=== PATIENT | male | born 1955 | race Caucasian/White ===

== ENCOUNTER 2017-02-28 10:25 | Emergency (ER) | payer MEDICARE, OTHER ==
[2017-02-28] MEDS ORDERED: SODIUM CHLORIDE 0.9% 1,000 ML IV STA (11:19)
[2017-02-28] MEDS ORDERED: ONDANSETRON 4 MG/2 ML VIAL IVP STA (11:19)
[2017-02-28] MEDS ORDERED: HYDROmorphone 1 MG/ML 1 ML SYRINGE IVP STA (11:19)
[2017-02-28] MEDS ORDERED: RX INFO: IV CONTRAST WAS GIVEN 1 EACH MISC MISCELLANE PRN (11:28)
--- NOTE | 2017-02-28 11:29 | ED ---
General Adult HPI <Ortiz Jose - Last Filed: 02/28/17 13:40> - General Source: patient, RN notes reviewed Mode of arrival: ambulatory Limitations: no limitations <Charanjit Santos - Last Filed: 02/28/17 13:45> - General Chief complaint: Abdominal Pain Stated complaint: Abd.pain Time Seen by Provider: 02/28/17 11:07 - History of Present Illness Initial comments: Patient is a 61-year-old male who presents emergency room today with chief complaint of right-sided abdominal pain. Doesn't that started 4 days ago. Describes it as sharp pain located in the right lower quadrant. Denies any radiation. Does admit to some nausea. Does admit to some diarrhea off and on over the last few weeks. He denies any other complaints or associated symptoms. Patient denies any recent fever, chills, shortness of breath, chest pain, back pain, numbness or tingling, dysuria or hematuria, constipation, headaches or visual changes, or any other complaints. (Charanjit Santos) - Related Data Home Medications Medication Instructions Recorded Confirmed Aspirin EC [Ecotrin] 81 mg PO DAILY 04/19/15 02/28/17 Pravastatin Sodium [Pravachol] 20 mg PO HS 04/19/15 02/28/17 amLODIPine BESYLATE [Norvasc] 5 mg PO DAILY 04/19/15 02/28/17 Albuterol Inhaler [Ventolin Hfa 1 - 2 puff INHALATION RT-Q6H PRN 02/28/17 Inhaler] Calcium Carbonate/Vitamin D3 1 tab PO BID 02/28/17 02/28/17 [Calcium 500-Vit D3 200 Tablet] Citalopram Hydrobromide [CeleXA] 10 mg PO DAILY 02/28/17 02/28/17 Ensure 1 can PO TID-W/MEALS 02/28/17 02/28/17 Ferrous Gluconate 324 mg PO DAILY 02/28/17 02/28/17 Sildenafil Citrate [Viagra] 50 mg PO ONCE PRN 02/28/17 02/28/17 Tiotropium 18 Mcg/Puff [Spiriva] 1 cap INHALATION RT-DAILY 02/28/17 02/28/17 Topiramate [Topamax] 50 mg PO BID 01/02/18 01/02/18 traZODone HCL [Desyrel] 200 mg PO HS 02/28/17 02/28/17 Allergies Allergy/AdvReac Type Severity Reaction Status Date / Time No Known Allergies Allergy Verified 02/28/17 12:35 Review of Systems ROS Other: All systems not noted in ROS Statement are negative. <Ortiz Jose - Last Filed: 02/28/17 13:40> ROS Other: All systems not noted in ROS Statement are negative. <Charanjit Santos - Last Filed: 02/28/17 13:45> ROS Statement: Those systems with pertinent positive or pertinent negative responses have been documented in the HPI. Past Medical History Past Medical History: Hyperlipidemia, Hypertension History of Any Multi-Drug Resistant Organisms: None Reported Past Surgical History: No Surgical Hx Reported Past Psychological History: Anxiety Smoking Status: Current every day smoker Past Alcohol Use History: None Reported Past Drug Use History: None Reported <Charanjit Santos - Last Filed: 02/28/17 13:45> General Exam <Ortiz Jose - Last Filed: 02/28/17 13:40> Limitations: no limitations <Charanjit Santos - Last Filed: 02/28/17 13:45> - General Exam Comments Initial Comments: General: The patient is awake and alert, in no distress, and does not appear acutely ill. Eye: Pupils are equal, round and reactive to light, extra-ocular movements are intact. No nystagmus. There is normal conjunctiva bilaterally. No signs of icterus. Ears, nose, mouth and throat: There are moist mucous membranes and no oral lesions. Neck: The neck is supple, there is no tenderness or JVD. Cardiovascular: There is a regular rate and rhythm. No murmur, rub or gallop is appreciated. Respiratory: Lungs are clear to auscultation, respirations are non-labored, breath sounds are equal. No wheezes, stridor, rales, or rhonchi. Gastrointestinal: Normal bowel sounds. No rebound tenderness. Mild tenderness right lower quadrant. No CVA tenderness. Musculoskeletal: Normal ROM, no tenderness. Strength 5/5. Sensation intact. Pulses equal bilaterally 2+. Neurological: A&O x 3. CN II-XII intact, There are no obvious motor or sensory deficits. Coordination appears grossly intact. Speech is normal. Skin: Skin is warm and dry and no rashes or lesions are noted. Psychiatric: Cooperative, appropriate mood & affect, normal judgment. (Charanjit Santos) Course <Ortiz Jose - Last Filed: 02/28/17 13:40> <Charanjit Santos - Last Filed: 02/28/17 13:45> Vital Signs 02/28/17 10:54 Temperature 97 F L Pulse Rate 75 Respiratory 16 Rate Blood Pressure 137/79 O2 Sat by Pulse 100 Oximetry - Reevaluation(s) Reevaluation #1: 02/28/17 13:40 [facility] supervision did have a long discussion with the patient regarding the findings. Patient has had recent weight loss and decreased appetite. He does state that he had a CAT scan done at the [facility] versus show some type of involvement of his liver. The CAT scan today does show evidence of what appears be metastatic disease from an unknown etiology at this time. After long discussions the patient has decided that he will be discharged and follow- up tomorrow to [facility]. He was encouraged to do so. He was offered admission here but would prefer to take care of his affairs and go down to the CT himself. He will be given copies of his labs and CAT scans. (Ortiz Jose) Medical Decision Making - Lab Data Result diagrams: 02/28/17 11:30 02/28/17 11:30 <Ortiz Jose - Last Filed: 02/28/17 13:40> - Lab Data Result diagrams: 02/28/17 11:30 02/28/17 11:30 <Charanjit Santos - Last Filed: 02/28/17 13:45> - Lab Data Lab Results 02/28/17 02/28/17 02/28/17 Range/Units 11:30 11:30 11:30 WBC 8.3 (3.8-10.6) k/uL RBC 4.78 (4.30-5.90) m/uL Hgb 14.5 (13.0-17.5) gm/dL Hct 45.6 (39.0-53.0) % MCV 95.4 (80.0-100.0) fL MCH 30.2 (25.0-35.0) pg MCHC 31.7 (31.0-37.0) g/dL RDW 15.3 (11.5-15.5) % Plt Count 221 (150-450) k/uL Neutrophils % 78 % Lymphocytes % 12 % Monocytes % 7 % Eosinophils % 1 % Basophils % 1 % Neutrophils # 6.5 (1.3-7.7) k/uL Lymphocytes # 1.0 (1.0-4.8) k/uL Monocytes # 0.6 (0-1.0) k/uL Eosinophils # 0.1 (0-0.7) k/uL Basophils # 0.1 (0-0.2) k/uL PT (9.0-12.0) sec INR (<1.2) APTT (22.0-30.0) sec Sodium 138 (137-145) mmol/L Potassium 4.4 (3.5-5.1) mmol/L Chloride 106 (98-107) mmol/L Carbon Dioxide 21 L (22-30) mmol/L Anion Gap 11 mmol/L BUN 23 H (9-20) mg/dL Creatinine 0.60 L (0.66-1.25) mg/dL Est GFR (MDRD) Af Amer >60 (>60 ml/min/1.73 sqM) Est GFR (MDRD) Non-Af >60 (>60 ml/min/1.73 sqM) Glucose 102 H (74-99) mg/dL Plasma Lactic Acid Francisco 1.1 (0.7-2.0) mmol/L Calcium 9.4 (8.4-10.2) mg/dL Total Bilirubin 0.6 (0.2-1.3) mg/dL AST 114 H (17-59) U/L ALT 78 H (21-72) U/L Alkaline Phosphatase 797 H (38-126) U/L Total Protein 7.0 (6.3-8.2) g/dL Albumin 4.0 (3.5-5.0) g/dL Amylase 49 (30-110) U/L Lipase 101 (23-300) U/L Urine Color Urine Appearance (Clear) Urine pH (5.0-8.0) Ur Specific [place] (1.001-1.035) Urine Protein (Negative) Urine Glucose (UA) (Negative) Urine Ketones (Negative) Urine Blood (Negative) Urine Nitrite (Negative) Urine Bilirubin (Negative) Urine Urobilinogen (<2.0) mg/dL Ur Leukocyte Esterase (Negative) Amorphous Sediment (None) /hpf 02/28/17 02/28/17 Range/Units 11:30 11:30 WBC (3.8-10.6) k/uL RBC (4.30-5.90) m/uL Hgb (13.0-17.5) gm/dL Hct (39.0-53.0) % MCV (80.0-100.0) fL MCH (25.0-35.0) pg MCHC (31.0-37.0) g/dL RDW (11.5-15.5) % Plt Count (150-450) k/uL Neutrophils % % Lymphocytes % % Monocytes % % Eosinophils % % Basophils % % Neutrophils # (1.3-7.7) k/uL Lymphocytes # (1.0-4.8) k/uL Monocytes # (0-1.0) k/uL Eosinophils # (0-0.7) k/uL Basophils # (0-0.2) k/uL PT 10.0 (9.0-12.0) sec INR 1.0 (<1.2) APTT 24.5 (22.0-30.0) sec Sodium (137-145) mmol/L Potassium (3.5-5.1) mmol/L Chloride (98-107) mmol/L Carbon Dioxide (22-30) mmol/L Anion Gap mmol/L BUN (9-20) mg/dL Creatinine (0.66-1.25) mg/dL Est GFR (MDRD) Af Amer (>60 ml/min/1.73 sqM) Est GFR (MDRD) Non-Af (>60 ml/min/1.73 sqM) Glucose (74-99) mg/dL Plasma Lactic Acid Francisco (0.7-2.0) mmol/L Calcium (8.4-10.2) mg/dL Total Bilirubin (0.2-1.3) mg/dL AST (17-59) U/L ALT (21-72) U/L Alkaline Phosphatase (38-126) U/L Total Protein (6.3-8.2) g/dL Albumin (3.5-5.0) g/dL Amylase (30-110) U/L Lipase (23-300) U/L Urine Color Yellow Urine Appearance Cloudy (Clear) Urine pH 7.0 (5.0-8.0) Ur Specific [place] 1.014 (1.001-1.035) Urine Protein Negative (Negative) Urine Glucose (UA) Negative (Negative) Urine Ketones Negative (Negative) Urine Blood Negative (Negative) Urine Nitrite Negative (Negative) Urine Bilirubin Negative (Negative) Urine Urobilinogen <2.0 (<2.0) mg/dL Ur Leukocyte Esterase Negative (Negative) Amorphous Sediment Occasional H (None) /hpf Disposition <Ortiz Jose - Last Filed: 02/28/17 13:40> Time of Disposition: 13:44 <Charanjit Santos - Last Filed: 02/28/17 13:45> Clinical Impression: Liver mass Disposition: HOME SELF-CARE Condition: Undetermined Instructions: Abdominal Pain (ED) Additional Instructions: Please follow-up with [facility] as discussed soon as possible for further evaluation of possible metastatic disease to the liver. Please return to emergency room for new concerns. Referrals: Hansel Mario DO [Primary Care Provider] - 1-2 days
[2017-02-28 11:55] LABS: Basophils # (A) 0.1 k/uL (0-0.2); Basophils % (A) 1 %; Eosinophils # (A) 0.1 k/uL (0-0.7); Eosinophils % (A) 1 %; HCT 45.6 % (39.0-53.0); HGB 14.5 gm/dL (13.0-17.5); Lymphocytes % (A) 12 %; MCH 30.2 pg (25.0-35.0); MCHC 31.7 g/dL (31.0-37.0); MCV 95.4 fL (80.0-100.0); Mean Platelet Volume 9.7; Monocytes # (A) 0.6 k/uL (0-1.0); Monocytes % (A) 7 %; Neutrophils # (A) 6.5 k/uL (1.3-7.7); Neutrophils % (A) 78 %; Platelet Count 221 k/uL (150-450); RBC 4.78 m/uL (4.30-5.90); RDW 15.3 % (11.5-15.5); WBC 8.3 k/uL (3.8-10.6)
[2017-02-28 11:59] LABS: Partial Thromboplastin Time 24.5 sec (22.0-30.0)
[2017-02-28 12:02] LABS: ALT 78 U/L (21-72); AST 114 U/L (17-59); Alkaline Phosphatase 797 U/L (38-126); Amylase 49 U/L (30-110); Anion Gap 11 mmol/L; Blood Urea Nitrogen 23 mg/dL (9-20); Calcium 9.4 mg/dL (8.4-10.2); Carbon Dioxide 21 mmol/L (22-30); Chloride 106 mmol/L (98-107); Glucose 102 mg/dL (74-99); Lipase 101 U/L (23-300); Potassium 4.4 mmol/L (3.5-5.1); Sodium 138 mmol/L (137-145); Total Bilirubin 0.6 mg/dL (0.2-1.3)
[2017-02-28 12:27] LABS: Amorphous Sediment,Urine Occasional /hpf; Appearance,Urine Cloudy (Clear); Bilirubin,Urine Negative (Negative); Blood,Urine Negative (Negative); Color,Urine Yellow; Glucose,Urine (UA) Negative (Negative); Ketones,Urine Negative (Negative); Leukocyte Esterase,Urine Negative (Negative); Nitrite,Urine Negative (Negative); Protein,Urine Negative (Negative); Specific Gravity,Urine 1.014 (1.001-1.035); Urobilinogen,Urine <2.0 mg/dL (<2.0)
--- NOTE | 2017-02-28 13:15 | CT ---
EXAMINATION TYPE: CT abdomen pelvis w con DATE OF EXAM: 02/28/2017 COMPARISON: NONE HISTORY: Bilateral lower abdominal pain CT DLP: 813 mGycm CONTRAST: CT scan of the abdomen and pelvis is performed without Oral Contrast and with IV Contrast, patient in jected with 100 ml mL of Omnipaque 300. FINDINGS: LUNG BASES-: No visible nodule. No infiltrate. Basilar emphysematous changes seen. LIVER/GB: Innumerable hepatic lesions are noted with the largest identified near the dome posteriorly measuring 3.1 cm. All lobes and segments appear to be affected and the findings are believed to be c onsistent with metastatic disease. There is also associated hepatomegaly. The gallbladder is free of cholelithiasis. Mild biliary ductal prominence left hepatic lobe. PANCREAS: No inflammation. No distinct mass. SPLEEN: No splenic enlargement. No lesion seen. ADRENALS: No nodule. No thickening. KIDNEYS/BLADDER: No hydronephrosis. No nephrolithiasis. No disctinct renal mass. Urinary bladder g rossly unremarkable. BOWEL: Normal appendix. Normal bowel caliber. No inflammation. No obvious colonic lesion although t he colon is less than ideally distended at this time. GENITAL ORGANS: No gross abnormality. LYMPH NODES: No greater than 1cm abdominal or pelvic lymph nodes are appreciated. AORTA: Nonaneurysmal atheromatous change of the abdominal aorta. OSSEOUS STRUCTURES: No significant abnormality is seen. OTHER: Small amount of free fluid within the pelvis. IMPRESSION: 1. Findings compatible with metastatic disease to the liver with site of origin difficult to elucidat e on this study. As noted there is less than ideal distention of the colon. 2. Hepatomegaly. 3. Small amount of free fluid within the pelvis.
[2017-03-01 23:01] VITALS: BP 175/84; PULSE 57; RESP 15; TEMP 97.8
== END 2017-02-28 14:15 | disposition home or self-care (01) ==
LOC: EC 10:25
DX: R16.0 Hepatomegaly, not elsewhere classified (principal); E78.5 Hyperlipidemia, unspecified; I10 Essential (primary) hypertension; F41.9 Anxiety disorder, unspecified; F17.200 Nicotine dependence, unspecified, uncomplicated; Z79.82 Long term (current) use of aspirin; Z79.899 Other long term (current) drug therapy
CPT/HCPCS: 99284; 96374; 96375; 96361 ×2; 36415; 80053; 82150; 83605; 83690; 85025; 85610; 85730; 81001; 74177; J2405; J1170; Q9967

== ENCOUNTER 2017-03-08 16:15 | Inpatient (IN) | payer OTHER, MEDICARE ==
[2017-03-08] MEDS ORDERED: SODIUM CHLORIDE 0.9% 1,000 ML IV ONE (16:35)
[2017-03-08] MEDS ORDERED: HYDROmorphone 1 MG/ML 1 ML SYRINGE IVP STA ×2 (16:53→18:24)
[2017-03-08] MEDS ORDERED: ONDANSETRON 4 MG/2 ML VIAL IVP STA (16:53)
[2017-03-08 17:14] LABS: Basophils # (A) 0.1 k/uL (0-0.2); Basophils % (A) 0 %; Eosinophils % (A) 0 %; HCT 47.5 % (39.0-53.0); HGB 15.1 gm/dL (13.0-17.5); Lymphocytes # (A) 0.8 k/uL (1.0-4.8); Lymphocytes % (A) 6 %; MCH 29.6 pg (25.0-35.0); MCHC 31.8 g/dL (31.0-37.0); MCV 93.1 fL (80.0-100.0); Mean Platelet Volume 9.2; Monocytes # (A) 0.6 k/uL (0-1.0); Monocytes % (A) 5 %; Neutrophils % (A) 88 %; Platelet Count 259 k/uL (150-450); RBC 5.11 m/uL (4.30-5.90); RDW 14.9 % (11.5-15.5); WBC 12.6 k/uL (3.8-10.6)
[2017-03-08 17:28] LABS: INR 1.1 (<1.2); Prothrombin Time 10.4 sec (9.0-12.0)
[2017-03-08 17:29] LABS: ALT 87 U/L (21-72); AST 148 U/L (17-59); Albumin 4.5 g/dL (3.5-5.0); Alkaline Phosphatase 836 U/L (38-126); Amylase 44 U/L (30-110); Anion Gap 12 mmol/L; Blood Urea Nitrogen 20 mg/dL (9-20); Calcium 10.2 mg/dL (8.4-10.2); Carbon Dioxide 24 mmol/L (22-30); Chloride 99 mmol/L (98-107); Glucose 121 mg/dL (74-99); Lipase 48 U/L (23-300); Potassium 4.6 mmol/L (3.5-5.1); Sodium 135 mmol/L (137-145); Total Bilirubin 1.4 mg/dL (0.2-1.3); Total Protein 7.8 g/dL (6.3-8.2)
--- NOTE | 2017-03-08 17:41 | XR ---
EXAMINATION TYPE: XR KUB DATE OF EXAM: 03/08/2017 COMPARISON: NONE HISTORY: Lower abdominal pain for a month and half. TECHNIQUE: 2 upright views FINDINGS: The visualized lung bases and pleural spaces and cardiac silhouette are unremarkable. There is no pneumoperitoneum and no evident pneumatosis. The stomach is enlarged and fluid-filled. The stomach takes up nearly the entirety of the left upper quadrant. Taking up nearly the entire right upper quadrant is the liver, with evident hepatomegaly. The skeletal structures and soft tissues are unremarkable. IMPRESSION: 1. PROMINENT GASTRIC DISTENTION. 2. HEPATOMEGALY.
--- NOTE | 2017-03-08 18:17 | ED ---
Abdominal Pain HPI - General Chief Complaint: Abdominal Pain Stated Complaint: abdominal pain Time Seen by Provider: 03/08/17 16:28 Source: patient, RN notes reviewed Mode of arrival: wheelchair Limitations: no limitations - History of Present Illness Initial Comments: This a 61-year-old male presents emergency Department chief complaint of right upper quadrant abdominal pain. Patient states he seen here 5 days ago and was told that he had liver mass possible cancer. Patient states he also had a study done at the [facility] that showed some things. Patient was offered admission though declined stated he wanted take care of some things outpatient follow-up with the [facility]. Patient states he went to his [facility] and [facility] today but had lab work drawn no other imaging or follow-up. He states that he is scheduled for biopsy by ultrasound though several weeks ago. He states today the pain worse and he cannot tolerate the pain anymore. Patient denies any fevers or chills. He does admit to some nausea no vomiting no diarrhea constipation. - Related Data Home Medications Medication Instructions Recorded Confirmed Aspirin EC [Ecotrin] 81 mg PO DAILY 04/19/15 03/08/17 Pravastatin Sodium [Pravachol] 10 mg PO HS 04/19/15 03/08/17 amLODIPine BESYLATE [Norvasc] 5 mg PO DAILY 04/19/15 03/08/17 Calcium Carbonate/Vitamin D3 1 tab PO BID 02/28/17 03/08/17 [Calcium 500-Vit D3 200 Tablet] Ferrous Gluconate 324 mg PO DAILY 02/28/17 03/08/17 Tiotropium 18 Mcg/Puff [Spiriva] 1 cap INHALATION RT-DAILY 02/28/17 03/08/17 Topiramate [Topamax] 50 mg PO BID 02/28/17 03/08/17 traZODone HCL [Desyrel] 200 mg PO HS 02/28/17 03/08/17 HYDROcodone/APAP 7.5-325MG [[place] 1 tab PO QID PRN 03/08/17 03/08/17 7.5-325] Allergies Allergy/AdvReac Type Severity Reaction Status Date / Time No Known Allergies Allergy Verified 03/08/17 17:12 Review of Systems ROS Statement: Those systems with pertinent positive or pertinent negative responses have been documented in the HPI. ROS Other: All systems not noted in ROS Statement are negative. Past Medical History Past Medical History: Hyperlipidemia, Hypertension History of Any Multi-Drug Resistant Organisms: None Reported Past Surgical History: No Surgical Hx Reported Past Psychological History: Anxiety Smoking Status: Current every day smoker Past Alcohol Use History: None Reported Past Drug Use History: None Reported General Exam Limitations: no limitations General appearance: alert, in no apparent distress Head exam: Present: atraumatic, normocephalic, normal inspection Neck exam: Present: normal inspection, full ROM. Absent: tenderness, meningismus, lymphadenopathy Respiratory exam: Present: normal lung sounds bilaterally. Absent: respiratory distress, wheezes, rales, rhonchi, stridor Cardiovascular Exam: Present: regular rate, normal rhythm, normal heart sounds. Absent: systolic murmur, diastolic murmur, rubs, gallop, clicks GI/Abdominal exam: Present: soft, tenderness (Moderate to severe right upper quadrant tenderness), normal bowel sounds. Absent: distended, guarding, rebound , rigid Back exam: Absent: CVA tenderness (R), CVA tenderness (L) Skin exam: Present: warm, dry, intact, normal color. Absent: rash Course Vital Signs 03/08/17 03/08/17 16:25 18:27 Temperature 98.4 F Pulse Rate 90 71 Respiratory 20 20 Rate Blood Pressure 168/88 163/80 O2 Sat by Pulse 98 99 Oximetry Medical Decision Making - Medical Decision Making 61-year-old male presented to er for abdominal pain. Patient has what appears to be metastatic cancer to liver. Patient's having increasing pain and increasing transaminitis. Patient be admitted for further evaluation and pain control. - Lab Data Result diagrams: 03/08/17 17:05 03/08/17 17:05 Lab Results 03/08/17 03/08/17 03/08/17 Range/Units 17:05 17:05 17:05 WBC 12.6 H (3.8-10.6) k/uL RBC 5.11 (4.30-5.90) m/uL Hgb 15.1 (13.0-17.5) gm/dL Hct 47.5 (39.0-53.0) % MCV 93.1 (80.0-100.0) fL MCH 29.6 (25.0-35.0) pg MCHC 31.8 (31.0-37.0) g/dL RDW 14.9 (11.5-15.5) % Plt Count 259 (150-450) k/uL Neutrophils % 88 % Lymphocytes % 6 % Monocytes % 5 % Eosinophils % 0 % Basophils % 0 % Neutrophils # 11.0 H (1.3-7.7) k/uL Lymphocytes # 0.8 L (1.0-4.8) k/uL Monocytes # 0.6 (0-1.0) k/uL Eosinophils # 0.0 (0-0.7) k/uL Basophils # 0.1 (0-0.2) k/uL PT 10.4 (9.0-12.0) sec INR 1.1 (<1.2) APTT 23.0 (22.0-30.0) sec Sodium 135 L (137-145) mmol/L Potassium 4.6 (3.5-5.1) mmol/L Chloride 99 (98-107) mmol/L Carbon Dioxide 24 (22-30) mmol/L Anion Gap 12 mmol/L BUN 20 (9-20) mg/dL Creatinine 0.70 (0.66-1.25) mg/dL Est GFR (MDRD) Af Amer >60 (>60 ml/min/1.73 sqM) Est GFR (MDRD) Non-Af >60 (>60 ml/min/1.73 sqM) Glucose 121 H (74-99) mg/dL Calcium 10.2 (8.4-10.2) mg/dL Total Bilirubin 1.4 H (0.2-1.3) mg/dL AST 148 H (17-59) U/L ALT 87 H (21-72) U/L Alkaline Phosphatase 836 H (38-126) U/L Total Protein 7.8 (6.3-8.2) g/dL Albumin 4.5 (3.5-5.0) g/dL Amylase 44 (30-110) U/L Lipase 48 (23-300) U/L Disposition Clinical Impression: Transaminitis, Intractable abdominal pain, Liver mass Disposition: ADMITTED IP TO THIS [facility] Condition: Fair Referrals: Hansel Mario DO [Primary Care Provider] - 1-2 days
--- NOTE | 2017-03-08 18:36 | US ---
EXAMINATION TYPE: US abdomen limited DATE OF EXAM: 03/08/2017 COMPARISON: CT CLINICAL HISTORY: increased pain. EXAM MEASUREMENTS: Liver Length: 18.4 cm Gallbladder Wall: 0.4 cm CBD: 0.1 cm Right Kidney: 11.4 x 4.3 x 4.8 cm Patient in a lot of pain, had to sit straight up during test, unable to hold his breath. Pancreas: partially obscured by bowel gas, portions visualized wnl Liver: appears grossly heterogeneous with many probable masses, enlarged Gallbladder: The gallbladder is nondistended with biliary sludge seen within. Its wall appears homog eneously slightly-thickened, but this is likely due to underdistention. There was no evidence for son ographic Castañeda's sign: CBD: wnl Right Kidney: No hydronephrosis. The upper and lower poles are not entirely well seen due to overlyin g bowel gas. IMPRESSION: INNUMERABLE LIVER LESIONS WITH MILD HEPATOMEGALY BUT WITHOUT BILIARY OBSTRUCTION. NEGATIVE FOR CHOLECYSTITIS OR RIGHT-SIDED HYDRONEPHROSIS.
[2017-03-08] MEDS ORDERED: LORazepam 2 MG/ML INJ IV PRN (19:05)
[2017-03-08] MEDS ORDERED: HYDROmorphone 1 MG/ML 1 ML SYRINGE IVP PRN (19:05)
[2017-03-08] MEDS ORDERED: ONDANSETRON 4 MG/2 ML VIAL IVP PRN (19:05)
[2017-03-08] MEDS ORDERED: NALOXONE 0.4 MG/ML 1 ML VIAL IV PRN (19:05)
[2017-03-08 20:24] LABS: Appearance,Urine Clear (Clear); Bilirubin,Urine Negative (Negative); Blood,Urine Negative (Negative); Color,Urine Yellow; Glucose,Urine (UA) Negative (Negative); Hyaline Casts,Urine 8 /lpf (0-2); Ketones,Urine 1+ (Negative); Leukocyte Esterase,Urine Negative (Negative); Mucus,Urine Rare /hpf; Nitrite,Urine Negative (Negative); PH, Urine 5.5 (5.0-8.0); Protein,Urine 1+ (Negative); RBC,Urine 1 /hpf (0-5); Specific Gravity,Urine 1.019 (1.001-1.035); WBC,Urine 4 /hpf (0-5)
[2017-03-08] MEDS: HYDROmorphone 2 MG/ML 1 ML SYRINGE IVP PRN (22:31)
[2017-03-09] MEDS: TOPIRAMATE 25 MG TAB PO SCH ×3 (00:25→21:17)
[2017-03-09] MEDS: traZODone HCL 100 MG TAB PO SCH ×2 (00:25→21:17)
[2017-03-09] MEDS: SODIUM CHLORIDE 0.9% 1,000 ML IV SCH ×3 (00:25→21:16)
[2017-03-09] MEDS: HYDROmorphone 2 MG/ML 1 ML SYRINGE IVP PRN ×3 (01:23→07:37)
[2017-03-09 08:31] LABS: HCT 41.8 % (39.0-53.0); HGB 13.8 gm/dL (13.0-17.5); MCH 30.4 pg (25.0-35.0); Mean Platelet Volume 9.4; Platelet Count 221 k/uL (150-450); RBC 4.54 m/uL (4.30-5.90); RDW 14.1 % (11.5-15.5); WBC 4.4 k/uL (3.8-10.6)
[2017-03-09 08:42] LABS: ALT 69 U/L (21-72); AST 110 U/L (17-59); Albumin 3.8 g/dL (3.5-5.0); Alkaline Phosphatase 710 U/L (38-126); Anion Gap 10 mmol/L; Blood Urea Nitrogen 21 mg/dL (9-20); Calcium 9.3 mg/dL (8.4-10.2); Carbon Dioxide 23 mmol/L (22-30); Chloride 104 mmol/L (98-107); Glucose 115 mg/dL (74-99); Magnesium 1.9 mg/dL (1.6-2.3); Potassium 4.5 mmol/L (3.5-5.1); Sodium 137 mmol/L (137-145); Total Bilirubin 1.2 mg/dL (0.2-1.3); Total Protein 6.7 g/dL (6.3-8.2)
[2017-03-09 10:49] LABS: Lymphocytes # (M) 0.57 k/uL (1.0-4.8); Monocytes # (M) 0.53 k/uL (0-1.0); Neutrophils % (M) 75 %; Nucleated Red Blood Cells 0 /100 WBC (0-0); Total Cells Counted 100
--- NOTE | 2017-03-09 11:32 | P.CONS ---
History of Present Illness - Reason for Consult Consult date: 03/09/17 liver mass Requesting physician: Yg Stark - History of Present Illness 61-year-old gentleman with a history of long-standing nicotine cigarette dependency, remote EtOH consumption quit 2005, marijuana, COPD, hyperlipidemia, hypertension, anxiety presents with acute abdominal pain. Patient was recently evaluated at the [facility] in [facility] a few months ago in regards to unexplained weight loss and changes in appetite. He reports undergoing an abdominal CAT scan imaging which resulted in multiple liver lesions. Not sure if CT of the chest was performed but he has a history of pulmonary nodules that he says have been unchanged over the past few years. Liver biopsy was advised and is scheduled 2 weeks from now at the ID. No history of hepatitis or intravenous drug abuse. Primary source is unknown at this time. Patient has had progressive abdominal pain mostly in the upper abdomen with decreased appetite. No fevers chills hematemesis hematochezia melena. Colonoscopy 5-6 months ago within normal limits may be a few polyps removed. No history of EGD. Ultrasound abdomen innumerable liver lesions with mild hepatomegaly without biliary obstruction. CBD 0.1 cm. Liver length 18.4 cm. Biliary sludge seen. Admission white count 4.4-12.6. Hemoglobin 13.8-15.1. Platelet 221. INR 1.1. Total bilirubin 1.2-1.4. AST 110-148. ALT 69-87. Alkaline phosphatase 710- 836. Lipase 48. Review of Systems Constitutional: Denies fever, chills, sweats, weight gain, or loss. HEENT: Negative for migraines, blurred vision or loss, earaches, drainage, tinnitus, oral mucosal lesions, dysphagia, or odynophagia. Cardiac: Negative for chest pain, arrhythmias, or palpitation. Respiratory: COPD. Nicotine cigarette dependency. Negative for shortness of breath, hemoptysis, cough, or sputum production. Gastrointestinal: See HPI for pertinent findings. Genitourinary: Negative for hematuria, urgency, frequency, polyuria, dysuria, or penile discharge. Musculoskeletal: Negative for muscle aches, swelling, arthritis, and arthralgias. Neurologic: Negative for stroke or TIA. Endocrine: Negative for thyroid problems. Skin: Negative for rash or itching. Psychiatric: Anxiety. Past Medical History Past Medical History: COPD, Hyperlipidemia, Hypertension, Osteoarthritis (OA) Additional Past Medical History / Comment(s): past abby wrist fx(no sx), past migraines. "fainting spells all my life (unk cause)until they found right meds for me and i have'nt had any in 5 years"," ruptured bellybutton as infant-has sx to repair" History of Any Multi-Drug Resistant Organisms: None Reported Past Surgical History: No Surgical Hx Reported Additional Past Surgical History / Comment(s): sx for "ruptured bellybutton" as . colonoscopy w/ polypectomy-benign Past Anesthesia/Blood Transfusion Reactions: No Reported Reaction Smoking Status: Current every day smoker - Past Family History Father Family Medical History: COPD Additional Family Medical History / Comment(s): Mother History Unknown: Yes Family Medical History: No Reported History Additional Family Medical History / Comment(s): still alive-healthy Medications and Allergies Home Medications Medication Instructions Recorded Confirmed Type Aspirin EC [Ecotrin] 81 mg PO DAILY 04/19/15 03/08/17 History Pravastatin Sodium [Pravachol] 10 mg PO HS 04/19/15 03/08/17 History amLODIPine BESYLATE [Norvasc] 5 mg PO DAILY 04/19/15 03/08/17 History Calcium Carbonate/Vitamin D3 1 tab PO BID 02/28/17 03/08/17 History [Calcium 500-Vit D3 200 Tablet] Ferrous Gluconate 324 mg PO DAILY 02/28/17 03/08/17 History Tiotropium 18 Mcg/Puff [Spiriva] 1 cap INHALATION RT-DAILY 02/28/17 03/08/17 History Topiramate [Topamax] 50 mg PO BID 02/28/17 03/08/17 History traZODone HCL [Desyrel] 200 mg PO HS 02/28/17 03/08/17 History HYDROcodone/APAP 7.5-325MG [[place] 1 tab PO QID PRN 03/08/17 03/08/17 History 7.5-325] Allergies Allergy/AdvReac Type Severity Reaction Status Date / Time No Known Allergies Allergy Verified 03/08/17 17:12 Physical Exam Vitals: Vital Signs Temp Pulse Pulse Resp BP BP Pulse Ox 03/09/17 07:00 98.3 F 75 18 183/92 97 03/08/17 21:12 97.8 F 79 15 149/84 94 L 03/08/17 20:25 98.0 F 68 18 154/89 98 03/08/17 19:54 86 18 132/89 98 03/08/17 18:27 71 20 163/80 99 03/08/17 16:25 98.4 F 90 20 168/88 98 Intake and Output 03/08/17 03/09/17 03/09/17 22:59 06:59 14:59 Intake Total 500 Balance 500 Intake: IV 500 Sodium Chloride 0.9% 1, 500 000 ml @ 100 mls/hr IV . Q10H [facility] Rx#:[id number] Other: Voiding Method Toilet # Voids 1 1 Weight 48.534 kg General appearance: The patient is alert, oriented, in no acute distress. Thin appearance. HET: Head is normocephalic and atraumatic. Pupils are equal and reactive. Oropharynx is clear without lesions. Neck: Supple without lymphadenopathy. Trachea midline. Heart: S1 S2. Regular rate and rhythm. Lungs: No crackles or wheezes are heard. Abdomen: Soft, diffuse mild abdominal pain mostly in the upper abdomen, nondistended with bowel sounds. No peritoneal signs. No palpable organomegaly or masses. Extremities: Normal skin color and turgor. No cyanosis, rash, ulceration, clubbing, or edema. Radial and pedal pulses are 2/4 bilaterally. Neurological: No focal deficits. Strength and sensation are grossly intact. Results CBC & Chem 7: 03/09/17 07:25 03/09/17 07:25 Labs: Abnormal Lab Results - Last 24 Hours (Table) 03/08/17 03/08/17 03/08/17 Range/Units 17:05 17:05 20:16 WBC 12.6 H (3.8-10.6) k/uL Neutrophils # 11.0 H (1.3-7.7) k/uL Lymphocytes # 0.8 L (1.0-4.8) k/uL Lymphocytes # (Manual) (1.0-4.8) k/uL Sodium 135 L (137-145) mmol/L BUN (9-20) mg/dL Glucose 121 H (74-99) mg/dL Total Bilirubin 1.4 H (0.2-1.3) mg/dL AST 148 H (17-59) U/L ALT 87 H (21-72) U/L Alkaline Phosphatase 836 H (38-126) U/L Urine Protein 1+ H (Negative) Urine Ketones 1+ H (Negative) Hyaline Casts 8 H (0-2) /lpf Urine Mucus Rare H (None) /hpf 03/09/17 03/09/17 Range/Units 07:25 07:25 WBC (3.8-10.6) k/uL Neutrophils # (1.3-7.7) k/uL Lymphocytes # (1.0-4.8) k/uL Lymphocytes # (Manual) 0.57 L (1.0-4.8) k/uL Sodium (137-145) mmol/L BUN 21 H (9-20) mg/dL Glucose 115 H (74-99) mg/dL Total Bilirubin (0.2-1.3) mg/dL AST 110 H (17-59) U/L ALT (21-72) U/L Alkaline Phosphatase 710 H (38-126) U/L Urine Protein (Negative) Urine Ketones (Negative) Hyaline Casts (0-2) /lpf Urine Mucus (None) /hpf US - abdomen: report reviewed (Dr. Nelson) Assessment and Plan (1) Liver mass Narrative/Plan: Presumed malignancy until proven otherwise primary unknown. Current Visit: Yes Status: Acute Code(s): R16.0 - HEPATOMEGALY, NOT ELSEWHERE CLASSIFIED SNOMED Code(s): 035824139 (2) Intractable abdominal pain Current Visit: Yes Status: Acute Code(s): R10.9 - UNSPECIFIED ABDOMINAL PAIN SNOMED Code(s): 76167244 (3) Transaminitis Current Visit: Yes Status: Acute Code(s): R74.0 - NONSPEC ELEV OF LEVELS OF TRANSAMNS & LACTIC ACID DEHYDRGNSE SNOMED Code(s): 098440397 Plan: 1. Case was discussed with oncologist Dr. Lizama we'll proceed with CT imaging of the chest. 2. AFP/CEA marker. Hepatitis panel. 3. Light diet as tolerated. Pain management. 4. Patient received baby aspirin within the past 48 hours therefore ultrasound- guided biopsy of liver lesion cannot be performed. Interventional radiology protocol requires no aspirin 7 days prior to liver biopsy. [facility]. Thank you for this kind referral and the opportunity to participate in the care of your patient. This consultation was discussed with Dr. Nelson. The impression and plan of care have been directed as dictated.
[2017-03-09 11:57] VITALS: BMI 16.2
[2017-03-09] MEDS ORDERED: POLYETHYLENE GLYCOL 3350 17 GM POWD.PACK PO PRN (12:13)
[2017-03-09] MEDS ORDERED: IPRATROPIUM-ALBUTEROL 3 ML NEB INHALATION PRN (12:24)
--- NOTE | 2017-03-09 12:24 | P.HPIM ---
History of Present Illness 61-year-old gentleman with a history of long-standing nicotine cigarette dependency, remote EtOH consumption quit 2005, marijuana, COPD, hyperlipidemia, hypertension, anxiety presents with acute abdominal pain diffuse 7 x 10 presently. Patient was recently evaluated at the [facility] in [facility] a few months ago in regards to unexplained weight loss and changes in appetite, patient was diagnosed with hepatocellular carcinoma in [facility] patient comes in here because of the severe pain September abdomen did show multiple metastatic lesions. He reports undergoing an abdominal CAT scan imaging which resulted in multiple liver lesions. Patient is mainly admitted for pain management patient pain remains severe 7 x 10 in spite of Dilaudid patient will be started on fentanyl patch and GI prophylaxis along with ketorolac to control his pain if pain is better controlled patient probably can be discharged tomorrow although maybe he may need to go to subacute intimidation patient is quite weak will also obtain PT and OT consultation. Patient had mild transaminitis which resolved at this point of time and gastroenterology evaluated the patient Colonoscopy 5-6 months ago within normal limits may be a few polyps removed. No history of EGD. Review of Systems REVIEW OF SYSTEMS: CONSTITUTIONAL: No fever, no malaise, no fatigue. HEENT: No recent visual problems or hearing problems. Denied any sore throat. CARDIOVASCULAR: No chest pain, orthopnea, PND, no palpitations, no syncope. PULMONARY: No shortness of breath, no cough, no hemoptysis. GASTROINTESTINAL: As mentioned in HPI NEUROLOGICAL: No headaches, no weakness, no numbness. HEMATOLOGICAL: Denies any bleeding or petechiae. GENITOURINARY: Denies any burning micturition, frequency, or urgency. MUSCULOSKELETAL/RHEUMATOLOGICAL: Denies any joint pain, swelling, or any muscle pain. ENDOCRINE: Denies any polyuria or polydipsia. The rest of the 14-point review of systems is negative. Past Medical History Past Medical History: COPD, Hyperlipidemia, Hypertension, Osteoarthritis (OA) Additional Past Medical History / Comment(s): past abby wrist fx(no sx), past migraines. "fainting spells all my life (unk cause)until they found right meds for me and i have'nt had any in 5 years"," ruptured bellybutton as infant-has sx to repair" History of Any Multi-Drug Resistant Organisms: None Reported Past Surgical History: No Surgical Hx Reported Additional Past Surgical History / Comment(s): sx for "ruptured bellybutton" as . colonoscopy w/ polypectomy-benign Past Anesthesia/Blood Transfusion Reactions: No Reported Reaction Smoking Status: Current every day smoker - Past Family History Father Family Medical History: COPD Additional Family Medical History / Comment(s): Mother History Unknown: Yes Family Medical History: No Reported History Additional Family Medical History / Comment(s): still alive-healthy Medications and Allergies Home Medications Medication Instructions Recorded Confirmed Type Aspirin EC [Ecotrin] 81 mg PO DAILY 04/19/15 03/08/17 History Pravastatin Sodium [Pravachol] 10 mg PO HS 04/19/15 03/08/17 History amLODIPine BESYLATE [Norvasc] 5 mg PO DAILY 04/19/15 03/08/17 History Calcium Carbonate/Vitamin D3 1 tab PO BID 02/28/17 03/08/17 History [Calcium 500-Vit D3 200 Tablet] Ferrous Gluconate 324 mg PO DAILY 02/28/17 03/08/17 History Tiotropium 18 Mcg/Puff [Spiriva] 1 cap INHALATION RT-DAILY 02/28/17 03/08/17 History Topiramate [Topamax] 50 mg PO BID 02/28/17 03/08/17 History traZODone HCL [Desyrel] 200 mg PO HS 02/28/17 03/08/17 History HYDROcodone/APAP 7.5-325MG [[place] 1 tab PO QID PRN 03/08/17 03/08/17 History 7.5-325] Allergies Allergy/AdvReac Type Severity Reaction Status Date / Time No Known Allergies Allergy Verified 03/08/17 17:12 Physical Exam Vitals: Vital Signs Temp Pulse Pulse Resp BP BP Pulse Ox 03/09/17 07:00 98.3 F 75 18 183/92 97 03/08/17 21:12 97.8 F 79 15 149/84 94 L 03/08/17 20:25 98.0 F 68 18 154/89 98 03/08/17 19:54 86 18 132/89 98 03/08/17 18:27 71 20 163/80 99 03/08/17 16:25 98.4 F 90 20 168/88 98 Intake and Output 03/08/17 03/09/17 03/09/17 22:59 06:59 14:59 Intake Total 500 Balance 500 Intake: IV 500 Sodium Chloride 0.9% 1, 500 000 ml @ 100 mls/hr IV . Q10H [facility] Rx#:[id number] Other: Voiding Method Toilet # Voids 1 1 Weight 48.534 kg 48.534 kg Patient Weight 03/10/17 06:59 Weight 48.534 kg PHYSICAL EXAMINATION: GENERAL: The patient is alert and oriented x3, not in any acute distress. Well developed, well nourished. HEENT: Pupils are round and equally reacting to light. EOMI. No scleral icterus. No conjunctival pallor. Normocephalic, atraumatic. No pharyngeal erythema. No thyromegaly. CARDIOVASCULAR: S1 and S2 present. No murmurs, rubs, or gallops. PULMONARY: Chest is clear to auscultation, no wheezing or crackles. ABDOMEN: Nondistended mild diffuse tenderness was appreciated no rebound or rigidity MUSCULOSKELETAL: No joint swelling or deformity. EXTREMITIES: No cyanosis, clubbing, or pedal edema. NEUROLOGICAL: Gross neurological examination did not reveal any focal deficits. SKIN: No rashes. Results CBC & Chem 7: 03/09/17 07:25 03/09/17 07:25 Labs: Abnormal Lab Results - Last 24 Hours (Table) 03/08/17 03/08/17 03/08/17 Range/Units 17:05 17:05 20:16 WBC 12.6 H (3.8-10.6) k/uL Neutrophils # 11.0 H (1.3-7.7) k/uL Lymphocytes # 0.8 L (1.0-4.8) k/uL Lymphocytes # (Manual) (1.0-4.8) k/uL Sodium 135 L (137-145) mmol/L BUN (9-20) mg/dL Glucose 121 H (74-99) mg/dL Total Bilirubin 1.4 H (0.2-1.3) mg/dL AST 148 H (17-59) U/L ALT 87 H (21-72) U/L Alkaline Phosphatase 836 H (38-126) U/L Urine Protein 1+ H (Negative) Urine Ketones 1+ H (Negative) Hyaline Casts 8 H (0-2) /lpf Urine Mucus Rare H (None) /hpf 03/09/17 03/09/17 Range/Units 07:25 07:25 WBC (3.8-10.6) k/uL Neutrophils # (1.3-7.7) k/uL Lymphocytes # (1.0-4.8) k/uL Lymphocytes # (Manual) 0.57 L (1.0-4.8) k/uL Sodium (137-145) mmol/L BUN 21 H (9-20) mg/dL Glucose 115 H (74-99) mg/dL Total Bilirubin (0.2-1.3) mg/dL AST 110 H (17-59) U/L ALT (21-72) U/L Alkaline Phosphatase 710 H (38-126) U/L Urine Protein (Negative) Urine Ketones (Negative) Hyaline Casts (0-2) /lpf Urine Mucus (None) /hpf Thrombosis Risk Factor Assmnt - Choose All That Apply Any of the Below Risk Factors Present?: Yes Each Factor Represents 1 point: Abnormal pulmonary function (COPD), Age 41-60 years Other Risk Factors: No Other congenital or acquired thrombophilia - If yes, enter type in comment: No Thrombosis Risk Factor Assessment Total Risk Factor Score: 2 Thrombosis Risk Factor Assessment Level: Low Risk Assessment and Plan Plan: - severe abdominal pain: Secondary to metastatic liver cancer further workup as mentioned above Pain management as mentioned above will continue with IV pain medications and wean off as tolerated GI prophylaxis and the bowel regimen for opiate rate medications. -Mild transaminitis: Hepatitis panel which resolved at this point of time will repeat CMP tomorrow again this mild transaminases prior probably secondary to metastatic lesions all over the abdomen. -COPD without any acute exacerbation -Cancer cachexia mild protein calorie malnutrition secondary to that Hypertension uncontrolled blood pressure secondary to pain patient will be resumed on home regimen of antidepressant medication pain management as mentioned above.
[2017-03-09] MEDS: KETOROLAC 30 MG/ML 1 ML VIAL IVP PRN ×2 (13:20→21:17)
[2017-03-09 15:21] LABS: Alpha Fetoprotein, Tumor Mkr 3.2 ng/mL (0.0-7.9)
[2017-03-09] MEDS: HEPARIN SODIUM,PORCINE 5,000 UNIT/ML 1 ML VIAL SQ SCH (17:13)
[2017-03-09] MEDS ORDERED: MORPHINE SULFATE 5 MG/ML SYRINGE IVP PRN (17:36)
--- NOTE | 2017-03-09 17:36 | P.CONS ---
History of Present Illness - Reason for Consult Consult date: 03/09/17 metastatic liver lesions, intractable pain - History of Present Illness the patient is a 61-year-old white male, who had presented to the [facility] in late 2017, with complains of abdominal pain more prominent on the right side. This had started about 3-4 months prior and had been progressive slowly. There was associated nausea, as well as decreased appetite and persistent weight loss. He had imaging studies done in the ER on 02/28/17, which showed lesions in the liver suspicious for metastasis. He was supposed to have a liver biopsy on 03/22/17. He came into the hospital, because of increasing pain which was not tolerable for him. He was therefore admitted for further management. He had abdominal imaging, including abdominal x-rays and US of the abdomen . These again showed multiple liver lesions highly suggestive of metastasis with no evidence of free air, cholecystitis or hydronephrosis. The patient denied any prior history of malignancy. He does have a history of smoking and states that CT scan done a few years ago in the mediastinum had shown small lung nodules which are stable from before. He has had a colonoscopy within the last few months that was negative. consult was therefore placed for further evaluation and recommendations. Review of Systems Constitutional: Reports chronic pain, Reports fatigue, Reports poor appetite, Reports weight loss Eyes: denies blurred vision, denies pain Ears: deny: decreased hearing, ear discharge, earache, tinnitus Ears, nose, mouth and throat: Denies headache, Denies sore throat Cardiovascular: Reports decreased exercise tolerance Respiratory: Denies cough Gastrointestinal: Reports abdominal pain, Reports nausea Genitourinary: Reports as per HPI (no specific complaints) Musculoskeletal: Denies myalgias Integumentary: Denies pruritus, Denies rash Neurological: Reports weakness, Denies numbness Psychiatric: Denies anxiety, Denies depression Endocrine: Reports fatigue, Reports weight change Hematologic/Lymphatic: Reports as per HPI Past Medical History Past Medical History: COPD, Hyperlipidemia, Hypertension, Osteoarthritis (OA) Additional Past Medical History / Comment(s): past abby wrist fx(no sx), past migraines. "fainting spells all my life (unk cause)until they found right meds for me and i have'nt had any in 5 years"," ruptured bellybutton as -has sx to repair" History of Any Multi-Drug Resistant Organisms: None Reported Past Surgical History: No Surgical Hx Reported Additional Past Surgical History / Comment(s): sx for "ruptured bellybutton" as infant. colonoscopy w/ polypectomy-benign Past Anesthesia/Blood Transfusion Reactions: No Reported Reaction Smoking Status: Current every day smoker - Past Family History Father Family Medical History: COPD Additional Family Medical History / Comment(s): Mother History Unknown: Yes Family Medical History: No Reported History Additional Family Medical History / Comment(s): still alive-healthy Medications and Allergies Home Medications Medication Instructions Recorded Confirmed Type Aspirin EC [Ecotrin] 81 mg PO DAILY 04/19/15 03/08/17 History Pravastatin Sodium [Pravachol] 10 mg PO HS 04/19/15 03/08/17 History amLODIPine BESYLATE [Norvasc] 5 mg PO DAILY 04/19/15 03/08/17 History Calcium Carbonate/Vitamin D3 1 tab PO BID 02/28/17 03/08/17 History [Calcium 500-Vit D3 200 Tablet] Ferrous Gluconate 324 mg PO DAILY 02/28/17 03/08/17 History Tiotropium 18 Mcg/Puff [Spiriva] 1 cap INHALATION RT-DAILY 02/28/17 03/08/17 History Topiramate [Topamax] 50 mg PO BID 02/28/17 03/08/17 History traZODone HCL [Desyrel] 200 mg PO HS 02/28/17 03/08/17 History HYDROcodone/APAP 7.5-325MG [[place] 1 tab PO QID PRN 03/08/17 03/08/17 History 7.5-325] Allergies Allergy/AdvReac Type Severity Reaction Status Date / Time No Known Allergies Allergy Verified 03/08/17 17:12 Physical Exam Vitals: Vital Signs Temp Pulse Pulse Resp BP BP Pulse Ox 03/09/17 14:52 98.6 F 73 18 177/89 98 03/09/17 07:00 98.3 F 75 18 183/92 97 03/08/17 21:12 97.8 F 79 15 149/84 94 L 03/08/17 20:25 98.0 F 68 18 154/89 98 03/08/17 19:54 86 18 132/89 98 03/08/17 18:27 71 20 163/80 99 Intake and Output 03/09/17 03/09/17 03/09/17 06:59 14:59 22:59 Intake Total 500 Balance 500 Intake: IV 500 Sodium Chloride 0.9% 1, 500 000 ml @ 100 mls/hr IV . Q10H [facility] Rx#:[id number] Other: # Voids 1 2 Weight 48.534 kg Patient Weight 03/10/17 06:59 Weight 48.534 kg - Constitutional General appearance: mild distress - EENT Eyes: EOMI, PERRLA ENT: hearing grossly normal, normal oropharynx - Neck Neck: no lymphadenopathy Thyroid: bilateral: normal size - Respiratory Respiratory: bilateral: CTA - Cardiovascular Rhythm: regular Heart sounds: normal: S1, S2 - Gastrointestinal General gastrointestinal: hepatomegaly, soft Localized gastrointestinal: tender: RUQ - Integumentary Integumentary: normal - Neurologic Neurologic: CNII-XII intact - Musculoskeletal Musculoskeletal: generalized weakness, strength equal bilaterally - Psychiatric Psychiatric: A&O x's 3, appropriate affect Results CBC & Chem 7: 03/09/17 07:25 03/09/17 07:25 Labs: Abnormal Lab Results - Last 24 Hours (Table) 03/08/17 03/08/17 03/09/17 Range/Units 17:05 20:16 07:25 Lymphocytes # (Manual) (1.0-4.8) k/uL Sodium 135 L (137-145) mmol/L BUN 21 H (9-20) mg/dL Glucose 121 H 115 H (74-99) mg/dL Total Bilirubin 1.4 H (0.2-1.3) mg/dL AST 148 H 110 H (17-59) U/L ALT 87 H (21-72) U/L Alkaline Phosphatase 836 H 710 H (38-126) U/L Urine Protein 1+ H (Negative) Urine Ketones 1+ H (Negative) Hyaline Casts 8 H (0-2) /lpf Urine Mucus Rare H (None) /hpf 03/09/17 Range/Units 07:25 Lymphocytes # (Manual) 0.57 L (1.0-4.8) k/uL Sodium (137-145) mmol/L BUN (9-20) mg/dL Glucose (74-99) mg/dL Total Bilirubin (0.2-1.3) mg/dL AST (17-59) U/L ALT (21-72) U/L Alkaline Phosphatase (38-126) U/L Urine Protein (Negative) Urine Ketones (Negative) Hyaline Casts (0-2) /lpf Urine Mucus (None) /hpf Abdominal x-ray: report reviewed CT scan - abdomen: report reviewed CT scan - pelvis: report reviewed US - abdomen: report reviewed Assessment and Plan (1) Liver mass Narrative/Plan: The patient has multiple liver masses, with associated symptoms and hepatomegaly as well as liver enzyme elevation. The clinical picture is highly suggestive of metastatic disease to the liver. The next step in evaluation would be a tissue diagnosis. The patient has had a colonoscopy recently which was negative. He was supposed to have a liver biopsy at the [place], but would rather have it done while here because of progressive symptoms. The case was discussed in detail with the GI service. Liver biopsy will be ordered here. It was discussed with the patient that the clinical picture likely represents metastatic disease. At this time the primary site is not definite. I will order a CT scan of the chest for further workup, while awaiting results from the biopsy. The patient was taking aspirin, due to which the liver biopsy may have to be delayed. He was asked to stop the medication. If he is found to have lung lesions which are suspicious, then these can be also be potential targets Current Visit: Yes Status: Acute Code(s): R16.0 - HEPATOMEGALY, NOT ELSEWHERE CLASSIFIED SNOMED Code(s): 277398731 (2) Intractable abdominal pain Narrative/Plan: This appears to be neoplasm related. The patient has been started on a fentanyl patch appropriately. He is currently on IV Dilaudid. He'll be changed to IV morphine, and then transition over to oral morphine at the time of discharge for breakthrough. Current Visit: Yes Status: Acute Code(s): R10.9 - UNSPECIFIED ABDOMINAL PAIN SNOMED Code(s): 74657179
[2017-03-09 18:24] LABS: Hepatitis A Antibody IgM Non-Reactive (Non-Reactive); Hepatitis B Core IgM Non-Reactive (Non-Reactive)
[2017-03-09] MEDS ORDERED: RX INFO: IV CONTRAST WAS GIVEN 1 EACH MISC MISCELLANE PRN (19:04)
[2017-03-09] MEDS ORDERED: MORPHINE SULFATE 2 MG/ML SYRINGE IVP PRN (19:13)
[2017-03-09] MEDS ORDERED: PRAVASTATIN SODIUM 20 MG TAB PO SCH (21:00)
[2017-03-09] MEDS: FAMOTIDINE 20 MG TAB PO SCH (21:17)
[2017-03-09] MEDS: DOCUSATE 100 MG CAP PO SCH (21:17)
[2017-03-10] MEDS: HEPARIN SODIUM,PORCINE 5,000 UNIT/ML 1 ML VIAL SQ SCH ×2 (00:19→09:42)
[2017-03-10] MEDS: KETOROLAC 30 MG/ML 1 ML VIAL IVP PRN (06:48)
[2017-03-10] MEDS: SODIUM CHLORIDE 0.9% 1,000 ML IV SCH (07:27)
[2017-03-10 07:46] LABS: Glucose,Whole Blood 90 mg/dL (75-99)
[2017-03-10 08:02] VITALS: BP 187/93; TEMP 97.5
[2017-03-10 08:17] LABS: HCT 41.9 % (39.0-53.0); HGB 13.4 gm/dL (13.0-17.5); MCH 30.4 pg (25.0-35.0); MCHC 32.1 g/dL (31.0-37.0); MCV 94.9 fL (80.0-100.0); Mean Platelet Volume 9.1; Platelet Count 176 k/uL (150-450); RBC 4.41 m/uL (4.30-5.90); RDW 15.1 % (11.5-15.5); WBC 8.4 k/uL (3.8-10.6)
[2017-03-10 08:27] LABS: ALT 89 U/L (21-72); AST 228 U/L (17-59); Albumin 3.2 g/dL (3.5-5.0); Alkaline Phosphatase 699 U/L (38-126); Anion Gap 8 mmol/L; Blood Urea Nitrogen 15 mg/dL (9-20); Calcium 8.6 mg/dL (8.4-10.2); Carbon Dioxide 24 mmol/L (22-30); Chloride 104 mmol/L (98-107); Glucose 79 mg/dL (74-99); Potassium 3.7 mmol/L (3.5-5.1); Sodium 136 mmol/L (137-145); Total Bilirubin 1.3 mg/dL (0.2-1.3); Total Protein 5.9 g/dL (6.3-8.2)
[2017-03-10] MEDS: IPRATROPIUM 0.5 MG/2.5 ML NEBU INHALATION SCH ×2 (08:48→12:05)
--- NOTE | 2017-03-10 08:50 | CT ---
EXAMINATION TYPE: CT chest w con DATE OF EXAM: 03/10/2017 COMPARISON: CT abdomen pelvis 02/28/2017 HISTORY: Multiple liver lesions, possible lung mass CT DLP: 182.1 mGycm Automated exposure control for dose reduction was used. CONTRAST: CT scan of the chest is performed with IV Contrast, patient injected with 100 mL of Omnipaque 300. FINDINGS: LUNGS: The lungs are grossly clear, there is no concerning parenchymal mass or nodule identified. T here is no pleural effusion or pneumothorax seen. The tracheobronchial tree is patent. Emphysematous changes are present. MEDIASTINUM: There are no greater than 1 cm hilar or mediastinal lymph nodes. No pericardial effusi on is seen. Coronary artery calcifications are present. The heart is small. AORTA: No additional significant abnormality is seen. OTHER: Multiple ring-enhancing foci are again noted throughout the liver IMPRESSION: Metastatic disease. Emphysema. Coronary artery disease.
[2017-03-10 08:52] VITALS: RESP 18
[2017-03-10] MEDS ORDERED: amLODIPine 5 MG TAB PO SCH (09:00)
[2017-03-10] MEDS: TOPIRAMATE 25 MG TAB PO SCH (09:42)
[2017-03-10] MEDS: DOCUSATE 100 MG CAP PO SCH (09:42)
[2017-03-10] MEDS: FAMOTIDINE 20 MG TAB PO SCH (09:42)
--- NOTE | 2017-03-10 11:28 | P.PN ---
Subjective Progress Note Date: 03/10/17 Principal diagnosis: liver lesions abdominal pain Feels better. Pain controlled. CT chest reported no lung masses. Afebrile. Requesting diet advancement. Objective - Vital Signs Vital signs: Vital Signs Temp 97.5 F L 03/10/17 07:00 Pulse 71 03/10/17 08:58 Resp 18 03/10/17 08:48 BP 187/93 03/10/17 07:00 Pulse Ox 96 03/10/17 07:00 Intake & Output 03/09/17 03/10/17 03/10/17 18:59 06:59 18:59 Weight 48.534 kg Other: Voiding Method Toilet # Voids 2 1 - Exam General appearance: The patient is alert, oriented, in no acute distress. HET: Head is normocephalic and atraumatic. Pupils are equal and reactive. Oropharynx is clear without lesions. Neck: Supple without lymphadenopathy. Trachea midline. Heart: S1 S2. Regular rate and rhythm. Lungs: No crackles or wheezes are heard. Abdomen: Soft, mild right upper quadrant epigastric discomfort tenderness, nondistended with bowel sounds. No peritoneal signs. No palpable organomegaly or masses. Extremities: Normal skin color and turgor. No cyanosis, rash, ulceration, clubbing, or edema. Radial and pedal pulses are 2/4 bilaterally. Neurological: No focal deficits. Strength and sensation are grossly intact. - Labs CBC & Chem 7: 03/10/17 07:48 03/10/17 07:48 Labs: Abnormal Lab Results - Last 24 Hours (Table) 03/10/17 Range/Units 07:48 Sodium 136 L (137-145) mmol/L AST 228 H (17-59) U/L ALT 89 H (21-72) U/L Alkaline Phosphatase 699 H (38-126) U/L Total Protein 5.9 L (6.3-8.2) g/dL Albumin 3.2 L (3.5-5.0) g/dL Assessment and Plan (1) Liver mass Narrative/Plan: Presumed malignancy until proven otherwise primary unknown. Current Visit: Yes Status: Acute Code(s): R16.0 - HEPATOMEGALY, NOT ELSEWHERE CLASSIFIED SNOMED Code(s): 005480104 (2) Intractable abdominal pain Current Visit: Yes Status: Acute Code(s): R10.9 - UNSPECIFIED ABDOMINAL PAIN SNOMED Code(s): 52761892 (3) Transaminitis Current Visit: Yes Status: Acute Code(s): R74.0 - NONSPEC ELEV OF LEVELS OF TRANSAMNS & LACTIC ACID DEHYDRGNSE SNOMED Code(s): 323195100 Plan: 1. CT chest reported no obvious pathology. CEA AFP markers unremarkable. Patient is requesting liver biopsy to be performed in the [place] area if his insurance covers it. We'll discuss with case management. From a GI standpoint may be discharged [facility]. We' ll schedule outpatient liver biopsy if insurance covers. Follow up with oncology as advised. Discharge per medicine. Assessment and plan a care discussed with Dr. Nelson
--- NOTE | 2017-03-10 11:52 | P.DS ---
Providers Date of admission: 03/08/17 18:59 Attending physician: Yg Stark Consults: 03/08/17 19:05 Consult Physician Stat Consulting Provider: Kennedy Lizama Consult Reason/Comments: Metastatic liver cancer Do you want consulting provider notified?: Yes Consult Physician Stat Consulting Provider: Andria Nelson Consult Reason/Comments: Liver mass, transaminitis Do you want consulting provider notified?: Yes Primary care physician: [facility] Course: 61-year-old gentleman with a history of long-standing nicotine cigarette dependency, remote EtOH consumption quit 2005, marijuana, COPD, hyperlipidemia, hypertension, anxiety presents with acute abdominal pain diffuse 7 x 10 presently. Patient was recently evaluated at the [facility] in [facility] a few months ago in regards to unexplained weight loss and changes in appetite, patient was diagnosed with hepatocellular carcinoma in [facility] patient comes in here because of the severe pain September abdomen did show multiple metastatic lesions. He reports undergoing an abdominal CAT scan imaging which resulted in multiple liver lesions. Patient is mainly admitted for pain management patient pain remains severe 7 x 10 in spite of Dilaudid patient will be started on fentanyl patch and GI prophylaxis along with ketorolac to control his pain if pain is better controlled patient probably can be discharged tomorrow although maybe he may need to go to subacute intimidation patient is quite weak will also obtain PT and OT consultation. Patient had mild transaminitis which resolved at this point of time and gastroenterology evaluated the patient 03/10/2017 Patient pain is much better control patient will undergo biopsy as an outpatient in the hospital and the patient is being discharged today and 75 g of fentanyl along with bowel regimen for opiate-related constipation. PHYSICAL EXAMINATION: GENERAL: The patient is alert and oriented x3, not in any acute distress. Well developed, well nourished. HEENT: Pupils are round and equally reacting to light. EOMI. No scleral icterus. No conjunctival pallor. Normocephalic, atraumatic. No pharyngeal erythema. No thyromegaly. CARDIOVASCULAR: S1 and S2 present. No murmurs, rubs, or gallops. PULMONARY: Chest is clear to auscultation, no wheezing or crackles. ABDOMEN: Soft, nontender, nondistended, normoactive bowel sounds. No palpable organomegaly. MUSCULOSKELETAL: No joint swelling or deformity. EXTREMITIES: No cyanosis, clubbing, or pedal edema. NEUROLOGICAL: Gross neurological examination did not reveal any focal deficits. SKIN: No rashes. Assessment and Plan Plan: - severe abdominal pain: Secondary to metastatic liver cancer further w -Mild transaminitis: Resolved now -COPD without any acute exacerbation -Cancer cachexia mild protein calorie malnutrition secondary to that Hypertension Patient Condition at Discharge: Fair Plan - Discharge Summary Discharge Rx Participant: Yes New Discharge Prescriptions: New fentaNYL 75MCG/HR PATCH [Duragesic 75MCG/HR] 1 patch TRANSDERM Q72H #10 patch Polyethylene Glycol 3350 [Miralax] 17 gm PO DAILY PRN #30 powd.pack PRN Reason: Constipation Continue amLODIPine BESYLATE [Norvasc] 5 mg PO DAILY Pravastatin Sodium [Pravachol] 10 mg PO HS Aspirin EC [Ecotrin Low Dose] 81 mg PO DAILY traZODone HCL [Desyrel] 200 mg PO HS Topiramate [Topamax] 50 mg PO BID Tiotropium 18 Mcg/Puff [Spiriva] 1 cap INHALATION RT-DAILY Ferrous Gluconate 324 mg PO DAILY Calcium Carbonate/Vitamin D3 [Calcium 500-Vit D3 200 Tablet] 1 tab PO BID HYDROcodone/APAP 7.5-325MG [[place] 7.5-325] 1 tab PO QID PRN PRN Reason: Pain Discharge Medication List Aspirin EC [Ecotrin Low Dose] 81 mg PO DAILY 04/19/15 [History] Pravastatin Sodium [Pravachol] 10 mg PO HS 04/19/15 [History] amLODIPine BESYLATE [Norvasc] 5 mg PO DAILY 04/19/15 [History] Calcium Carbonate/Vitamin D3 [Calcium 500-Vit D3 200 Tablet] 1 tab PO BID [History] Ferrous Gluconate 324 mg PO DAILY 02/28/17 [History] Tiotropium 18 Mcg/Puff [Spiriva] 1 cap INHALATION RT-DAILY 02/28/17 [History] Topiramate [Topamax] 50 mg PO BID 02/28/17 [History] traZODone HCL [Desyrel] 200 mg PO HS 02/28/17 [History] HYDROcodone/APAP 7.5-325MG [[place] 7.5-325] 1 tab PO QID PRN 03/08/17 [History] Polyethylene Glycol 3350 [Miralax] 17 gm PO DAILY PRN #30 powd.pack 03/10/17 [Rx ] fentaNYL 75MCG/HR PATCH [Duragesic 75MCG/HR] 1 patch TRANSDERM Q72H #10 patch [Rx] Follow up Appointment(s)/Referral(s): Hansel Mario DO [Primary Care Provider] - 3 Days Discharge Disposition: HOME SELF-CARE
[2017-03-10 12:03] LABS: Glucose,Whole Blood 102 mg/dL (75-99)
[2017-03-10 12:35] VITALS: PULSE 80
== END 2017-03-10 15:03 | disposition home or self-care (01) | DRG 948 ==
LOC: EC 16:15 → 5MS5E 18:59
PROVIDERS: ADMIT Hospitalist; ATTEND Hospitalist
DX: G89.3 Neoplasm related pain (acute) (chronic) (principal); C22.0 Liver cell carcinoma; C79.89 Secondary malignant neoplasm of other specified sites; E44.1 Mild protein-calorie malnutrition; K59.03 Drug induced constipation; E78.5 Hyperlipidemia, unspecified; Z68.1 Body mass index [BMI] 19.9 or less, adult; J44.9 Chronic obstructive pulmonary disease, unspecified; F17.210 Nicotine dependence, cigarettes, uncomplicated; M19.90 Unspecified osteoarthritis, unspecified site; T40.605A Adverse effect of unspecified narcotics, initial encounter; F41.9 Anxiety disorder, unspecified; I10 Essential (primary) hypertension; Z79.891 Long term (current) use of opiate analgesic; Z79.899 Other long term (current) drug therapy; Z82.5 Family history of asthma and other chronic lower respiratory diseases; Z79.82 Long term (current) use of aspirin; Z86.69 Personal history of other diseases of the nervous system and sense organs
CPT/HCPCS: 36415; 71260; 74018; 76705; 80053; 80074; 81001; 82105; 82150; 82378; 83690; 83735; 85025; 85027; 85610; 85730; 94640; 96361; 96374; 96375; 96376; 99285

== ENCOUNTER → 2017-04-22 | Outpatient (CLI) | payer OTHER ==
--- NOTE | 2017-04-24 16:35 | PE ---
Nuclear medicine PET/CT HISTORY: Liver cancer Patient received 14.7 mCi F-18 FDG intravenously. Delayed scanning was performed from the skull base to the mid thighs. Localization and attenuation correction CT scan was performed. Correlation to CT scan of the chest 03/10/2017, CT abdomen pelvis 02/28/2017 Neck and chest: Small focus of hypermetabolic uptake is present along the internal mammary chain, SUV is only one however. At the level of the aorticopulmonary window some esophageal uptake may be physi ologic. There is however an abnormal lymph node at the left hilar region with associated hypermetabol ic uptake, SUV is 5.9. More inferiorly there is a hypermetabolic node present, SUV 3.9 in the left in fra hilar region. Emphysema present within the lungs. Abdomen pelvis: There are too numerous to count abnormal masses within the liver, SUV values are appr oximately 6-8. Small retroperitoneal hypermetabolic nodes present, SUV is approximately 4. There is a scites. Patient patient shows changes of anasarca. Osseous structures within normal limits IMPRESSION: Findings compatible with metastatic disease as described.
== END | disposition home or self-care (01) ==
LOC: RADPETMAIN 15:00
PROVIDERS: ATTEND Internal Medicine Hematology & Oncology
DX: C22.0 Liver cell carcinoma (principal)
CPT/HCPCS: 78815; A9552

== ENCOUNTER → 2017-06-09 | Outpatient (CLI) | payer OTHER ==
[2017-06-09 13:49] VITALS: BMI 13.9
== END | disposition home or self-care (01) ==
LOC: MNTWWP 09:29
PROVIDERS: ATTEND Internal Medicine Hematology & Oncology
DX: R63.4 Abnormal weight loss (principal)
CPT/HCPCS: 97802

== ENCOUNTER → 2017-07-14 | Outpatient (CLI) | payer OTHER ==
[2017-07-14 10:36] LABS: Blood Urea Nitrogen 13 mg/dL (9-20)
--- NOTE | 2017-07-14 13:11 | CT ---
EXAMINATION TYPE: CT abdomen pelvis w con DATE OF EXAM: 07/14/2017 COMPARISON: Nuclear medicine PET/CT 04/22/2017, prior CT abdomen pelvis 02/28/2017 HISTORY: Obs for possible mets, metastatic disease CT DLP: 633 mGycm Automated exposure control for dose reduction was used. TECHNIQUE: Helical acquisition of images from the lung bases through the pelvis have been completed. CONTRAST: Performed with Oral Contrast and with IV Contrast, patient injected with 100 ml mL of Isovue 300. FINDINGS: There are changes of anasarca, patient is cachectic LUNG BASES: No significant abnormality is appreciated. AORTA: Atheromatous changes are present, peripheral vascular occlusive change also noted in the miki c vasculature. LIVER/GB: There is an interval change in the appearance of the liver. Multiple foci of low attenuatio n at developed in the interval, there is some normal-appearing background liver parenchyma which was not as well-defined on prior exam. The liver has diminished in size somewhat in the interval. Gallbla dder within normal limits PANCREAS: No significant abnormality is seen. SPLEEN: No significant abnormality is seen. ADRENALS: No significant abnormality is seen. KIDNEYS: No significant abnormality is seen. REPRODUCTIVE ORGANS: No significant abnormality is seen BOWEL: No significant abnormality is seen. FREE AIR: No Free Air visible. ASCITES: Interval development of large amount of ascites. Fluid also present in the pelvis. PELVIC ADENOPATHY: None visualized. RETROPERITONEAL ADENOPATHY: No Retroperitoneal Adenopathy visible. URINARY BLADDER: No significant abnormality is seen. OSSEOUS STRUCTURES: No significant abnormality is seen. IMPRESSION: INTERVAL TREATMENT CHANGES DESCRIBED WITHIN THE LIVER AND DEVELOPMENT OF ASCITES
== END | disposition home or self-care (01) ==
LOC: RADPROMAIN 09:49
PROVIDERS: ATTEND Internal Medicine Hematology & Oncology
DX: C80.0 Disseminated malignant neoplasm, unspecified (principal)
CPT/HCPCS: 82565; 84520; 74177; J1642; Q9967

== ENCOUNTER → 2017-07-28 | Day surgery (SDC) | payer OTHER ==
--- NOTE | 2017-07-28 12:22 | US ---
Discontinued paracentesis HISTORY: Metastatic disease, ascites Ultrasound performed in all 4 quadrants. Only minimal ascites. IMPRESSION: Discontinued paracentesis.
== END ==
LOC: RADPROMAIN 11:37
PROVIDERS: ATTEND Internal Medicine Hematology & Oncology
DX: R18.8 Other ascites (principal); C80.1 Malignant (primary) neoplasm, unspecified; Z53.8 Procedure and treatment not carried out for other reasons

== ENCOUNTER → 2017-10-04 | Outpatient (CLI) | payer OTHER ==
--- NOTE | 2017-10-05 13:17 | CT ---
EXAMINATION TYPE: CT ChestAbdPelvis w con DATE OF EXAM: 10/04/2017 COMPARISON: CT abdomen and pelvis July 14, 2017. CT chest March 10, 2017. PET/CT April 22, 2017. HISTORY: Liver CA progress study. Originally diagnosed January 2017 CT DLP: 768 mGycm. Automated Exposure Control for Dose Reduction was Utilized. CONTRAST: CT scan of the thorax, abdomen and pelvis is performed with oral and with IV Contrast, patient inject ed with 100 mL of Isovue 300. FINDINGS: Patient has very little intra-abdominal fat making evaluation of abdominal structures subop timal. LUNGS: Moderate underlying emphysematous change is redemonstrated. No pleural effusion or pneumothora x is seen bilaterally. No suspicious parenchymal nodules or masses are present. MEDIASTINUM: There are no definitive greater than 1 cm hilar or mediastinal lymph nodes. Previously v isualized hypermetabolic prevascular and AP window lymph nodes were never well seen on contrast-enhan rashid CT suspected subcentimeter in size. No cardiomegaly or pericardial effusion is seen. OTHER: There is new right subclavian Mediport catheter terminating in SVC.. LIVER/GB: Liver size is diminished from prior PET/CT stable from most recent CT with multiple heterog eneous hypodense lesions scattered throughout right and left hepatic lobes. Overall they continue to decrease in size and number from most recent CT. For reference posterior segment right hepatic dome lesion measures 1.9 cm long axis axial image 11 versus 2.6 cm prior study. Lobulated contour to the p eriphery of liver is redemonstrated. There is continued interval improvement in surrounding perihepat ic ascites with some fluid along posterior margin of liver remaining present axial image 23. Gallblad corina has distended margins but stable appearance from prior. No suspicious new biliary dilatation is p resent. PANCREAS: No significant abnormality is seen. SPLEEN: No significant abnormality is seen. ADRENALS: No significant abnormality is seen. KIDNEYS: No significant abnormality is seen. BOWEL: Oral contrast reaches level of hepatic flexure. There is no suspicious small or large bowel di latation. GENITAL ORGANS: Central zone calcifications are seen in normal size prostate gland. LYMPH NODES: No greater than 1cm abdominal or pelvic lymph nodes are appreciated. OSSEOUS STRUCTURES: Mild to moderate multilevel spurring in thoracic spine is redemonstrated.. OTHER: There is moderate to severe calcified plaque of aorta extending into branch vessels. Interval improvement in abdominal ascites and subcutaneous edema noted. IMPRESSION: Continued improvement in diffuse or multifocal hepatic neoplasm. No recurrent thoracic ad enopathy clearly seen. Near complete resolution of perihepatic and diffuse abdominal and pelvic asci derek. No new suspicious masses or adenopathy.
== END | disposition home or self-care (01) ==
LOC: RADPROMAIN 11:30
PROVIDERS: ATTEND Internal Medicine Hematology & Oncology
DX: D37.6 Neoplasm of uncertain behavior of liver, gallbladder and bile ducts (principal); R18.8 Other ascites
CPT/HCPCS: 71260; 74177; J1642; Q9967

== ENCOUNTER → 2017-10-11 | Outpatient (CLI) | payer OTHER ==
--- NOTE | 2017-10-11 15:43 | MR ---
MRI CERVICAL SPINE: MRI THORACIC SPINE: MRI LUMBAR SPINE: CLINICAL HISTORY: Weakness, cervicalgia, T-spine pain, and low back pain all per order. History of li petra cancer. TECHNIQUE: Multiplanar, multisequence imaging of the cervical, thoracic, and lumbar spine are all per formed without and with IV contrast, 4 cc of gadolinium was given intravenously. COMPARISON: CT chest abdomen and pelvis October 04, 2017. PET/CT April 22, 2017.. FINDINGS: C-SPINE: Sagittal images of the cervical spine show the craniocervical junction to appear within normal limits . The cervical and upper thoracic spinal cord is normal in course, caliber, and signal. Vertebral a lignment is anatomic. The vertebral body and intravertebral disk heights are normal. Small posterior disc herniation C3-C4 level as seen on sagittal images effacing anterior thecal sac. There is round lesion of low T1 and T2 signal involving left C3 vertebra without enhancement etiology uncertain favo red benign. Axial images confirm central disc protrusion mildly effacing anterior thecal sac at C3-C4 level. Bila teral neural foramina are patent. Axial images at additional cervical levels are felt within normal limits. IMPRESSION: No suspicious enhancing bony lesions. Small posterior disc herniation C3-C4 level noted. T-SPINE: FINDINGS: Coronal images redemonstrates slight levoconvex scoliotic curvature in the upper thoracic s pine. Spinal cord shows normal course, caliber, and signal as it courses the thoracic spine. Verteb ral body heights and alignment are satisfactory. Disk space heights are preserved. No suspicious disk herniations are seen. There is round lesion of T1 hypointensity and T2 hyperintensity with postcontr ast enhancement involving left T3 vertebra sagittal image 5 of uncertain etiology as no definitive co rresponding lesion is seen on recent CT or PET CT. Review of the axial images shows no significant spinal canal stenosis or neural foraminal narrowing at any thoracic level. IMPRESSION: No significant abnormality is seen to account for patient's symptoms. L-SPINE: FINDINGS: Sagittal images of the lumbar spine show vertebral body heights and alignment to appear sat isfactory. There is transitional type L6 vertebra. Multilevel disc desiccation is present. There is m ild disc space narrowing L5 L6 level with posterior disc herniation. Small posterior disc herniation L3-L4 and L4-L5 levels are seen on sagittal images. Annular tear L3-L4 level is noted. The conus medu llaris is normal in position and signal ending L1-L2 disc space level. Minimal multilevel anterior sp urring is present. The bone marrow signal intensity is within normal limits. There is enhancing left- sided lumbar nerve root and spinal canal, nonspecific finding. Axial images began at labeled L1-L2 level which is felt within normal limits. Axial images at L2-L3 level show broad-based right paracentral/foraminal disc protrusion mildly effac ing anterolateral thecal sac and causing mild to moderate right-sided anterior inferior neural forami nal narrowing. Left-sided neural foramen is patent. Axial images at the L3-L4 level show mild broad disc bulge mildly effacing anterior thecal sac causin g mild bilateral anterior inferior neural foraminal narrowing. Axial images at the L4-L5 level show broad-based posterior disc protrusion effacing anterior thecal s ac and causing mild to moderate bilateral anterior inferior neural foraminal narrowing. Axial images at L5-L6 level show broad disc bulge with central disc protrusion and posterior spurring effacing anterior thecal sac on axial image 8 and causing moderate bilateral anterior inferior neura l foraminal narrowing. Axial images at the L6-S1 level are felt satisfactory. Heterogeneous enlarged liver corresponding to PET/CT with diffuse neoplastic involvement is noted. IMPRESSION: Multilevel degenerative changes in lumbar spine as detailed above.
== END | disposition home or self-care (01) ==
LOC: RADMRIMAIN 11:46
PROVIDERS: ATTEND Internal Medicine Hematology & Oncology
DX: M50.21 Other cervical disc displacement, high cervical region (principal); M54.6 Pain in thoracic spine; M51.26 Other intervertebral disc displacement, lumbar region; M48.061 Spinal stenosis, lumbar region without neurogenic claudication; M62.81 Muscle weakness (generalized); R53.1 Weakness
CPT/HCPCS: 82565; 72156; 72157; 72158; 36415; A9581

== ENCOUNTER → 2018-04-05 | Outpatient (CLI) | payer OTHER ==
[2018-04-05 11:41] LABS: Blood Urea Nitrogen 15 mg/dL (9-20)
--- NOTE | 2018-04-05 14:35 | CT ---
EXAMINATION TYPE: CT ChestAbdPelvis w con DATE OF EXAM: 04/05/2018 COMPARISON: Prior CT chest abdomen pelvis 01/11/2018 HISTORY: RUQ pain with history of liver cancer CT DLP: 870 mGycm Automated exposure control for dose reduction was used. CONTRAST: CT scan of the chest, abdomen and pelvis is performed with Oral Contrast and with IV Contrast, patien t injected with 100 mL of Isovue 300. FINDINGS: LUNGS: The lungs are stable, emphysematous changes are present. There is no pleural effusion or pne umothorax seen. The tracheobronchial tree is patent. MEDIASTINUM: There are no greater than 1 cm hilar or mediastinal lymph nodes. No pericardial effusi on is seen. AORTA: No significant abnormality is seen. OTHER: No additional significant abnormality is seen. LIVER/GB: Liver shows nodular contour and stable appearance, gallbladder is remarkable for some minim al dependent hyperdensity possibly representing stones PANCREAS: No significant abnormality is seen. SPLEEN: No significant abnormality is seen. ADRENALS: No significant abnormality is seen. KIDNEYS: No significant abnormality is seen. REPRODUCTIVE ORGANS: No gross abnormality seen. BOWEL: Colonic wall shows thickening possibly due to lack of distention, difficult to exclude a muco jo lesion in the sigmoid, rectosigmoid region FREE AIR: No Free Air visible. ASCITES: None seen. RETROPERITONEAL ADENOPATHY: Previously identified borderline enlarged node between the aorta and inf erior vena cava is stable on axial image 67 of the current exam, shows borderline increased size in s hort axis. 12 mm short axis node adjacent to the aorta on axial image 67 to the left midline is an in terval finding as is a short axis XI mm node just posterior to the left renal artery and an additiona l node between the aorta and inferior vena cava on axial image 73 measuring 10 mm. Portal node on axial image 68 into to the left renal vein shows a short axis measurement of 12 mm not seen on prior URINARY BLADDER: There is a thickened wall to the urinary bladder possibly due to lack of distention PELVIC ADENOPATHY: None visualized. OSSEOUS STRUCTURES: No significant abnormality is seen. IMPRESSION: Stable appearance to the liver. There are nodes seen in the retroperitoneum which were no t seen on prior exam as described. Additional findings above.
== END | disposition home or self-care (01) ==
LOC: RADCTMAIN 10:36
PROVIDERS: ATTEND Internal Medicine Hematology & Oncology
DX: J43.9 Emphysema, unspecified (principal); K76.89 Other specified diseases of liver; K63.89 Other specified diseases of intestine; C80.0 Disseminated malignant neoplasm, unspecified
CPT/HCPCS: 82565; 84520; 71260; 74177; Q9967

== ENCOUNTER 2018-06-01 08:41 | Emergency (ER) | payer OTHER, MEDICARE ==
[2018-06-01 08:46] VITALS: TEMP 97.6
[2018-06-01] MEDS ORDERED: HYDROmorphone 0.5 MG/0.5 ML SYRINGE IVP STA (09:02)
[2018-06-01] MEDS ORDERED: ONDANSETRON 4 MG/2 ML VIAL IVP STA (09:02)
[2018-06-01] MEDS ORDERED: SODIUM CHLORIDE 0.9% 1,000 ML IV STA (09:02)
[2018-06-01] MEDS ORDERED: FAMOTIDINE 20 MG/2 ML VIAL IV STA (09:02)
--- NOTE | 2018-06-01 09:13 | ED ---
Abdominal Pain HPI - General Chief Complaint: Abdominal Pain Stated Complaint: Abd pain Time Seen by Provider: 06/01/18 08:53 Source: patient, RN notes reviewed Mode of arrival: ambulatory Limitations: no limitations - History of Present Illness Initial Comments: 63-year-old male presents emergency Department with chief complaint of upper abdominal pain. Patient states he had increase abdominal pain 2 months ago that was in his lower abdomen that has now progressed to his epigastric region. Patient states his pressure yesterday as much more severe. Patient states that he had a CAT scan 2 months ago when the pain initially started but this is di fferent. Patient states he had this because he has a history of liver cancer. Patient states he was treated for that and was told that it was gone. Patient denies any chest pain or shortness of breath. Patient states pain feels like some is stabbing him. Patient denies any abdominal surgeries. Patient denies fever, chills, headache or dizziness no difficulty urinating. Patient does have mild constipation from chronic opiate use but states he does take her daily. Patient also states that he noticed weight loss recently. - Related Data Home Medications Medication Instructions Recorded Confirmed Aspirin EC [Ecotrin Low Dose] 81 mg PO DAILY 04/19/15 08/11/17 Pravastatin Sodium [Pravachol] 10 mg PO HS 04/19/15 08/11/17 amLODIPine BESYLATE [Norvasc] 5 mg PO DAILY 04/19/15 08/11/17 Tiotropium 18 Mcg/Puff [Spiriva] 1 cap INHALATION RT-DAILY 02/28/17 08/11/17 Topiramate [Topamax] 50 mg PO BID 02/28/17 08/11/17 HYDROcodone/APAP 7.5-325MG [[place] 1 tab PO QID PRN 03/08/17 08/11/17 7.5-325] Sennosides [Senna] 8.6 mg PO BID 07/26/17 08/11/17 Previous Rx's Medication Instructions Recorded fentaNYL 75MCG/HR PATCH [Duragesic 1 patch TRANSDERM Q72H #10 patch 03/10/17 75MCG/HR] Allergies Allergy/AdvReac Type Severity Reaction Status Date / Time No Known Allergies Allergy Verified 06/01/18 10:03 Review of Systems ROS Statement: Those systems with pertinent positive or pertinent negative responses have been documented in the HPI. ROS Other: All systems not noted in ROS Statement are negative. Past Medical History Past Medical History: Cancer, COPD, Hyperlipidemia, Hypertension, Osteoarthritis (OA) Additional Past Medical History / Comment(s): past abby wrist fx(no sx), past migraines. "fainting spells all my life (unk cause)until they found right meds for me and i have'nt had any in 5 years"," ruptured bellybutton as -has sx to repair" liver cancer, pt on chemo june 2017 History of Any Multi-Drug Resistant Organisms: None Reported Past Surgical History: No Surgical Hx Reported Additional Past Surgical History / Comment(s): sx for "ruptured bellybutton" as infant. colonoscopy w/ polypectomy-benign Past Anesthesia/Blood Transfusion Reactions: No Reported Reaction Past Psychological History: Anxiety Smoking Status: Current every day smoker Past Alcohol Use History: Daily Past Drug Use History: Marijuana - Past Family History Father Family Medical History: COPD Additional Family Medical History / Comment(s): Mother History Unknown: Yes Family Medical History: No Reported History Additional Family Medical History / Comment(s): still alive-healthy General Exam Limitations: no limitations General appearance: alert, in no apparent distress, cachectic Head exam: Present: atraumatic, normocephalic, normal inspection Neck exam: Present: normal inspection. Absent: tenderness, meningismus, lymphadenopathy Respiratory exam: Present: wheezes, decreased breath sounds. Absent: normal lung sounds bilaterally, respiratory distress, rales, rhonchi, stridor Cardiovascular Exam: Present: regular rate, normal rhythm, normal heart sounds. Absent: systolic murmur, diastolic murmur, rubs, gallop, clicks GI/Abdominal exam: Present: soft, tenderness (Moderate epigastric upper abdominal tenderness), normal bowel sounds. Absent: distended, guarding, re bound, rigid Back exam: Absent: CVA tenderness (R), CVA tenderness (L) Skin exam: Present: warm, dry, intact, normal color. Absent: rash Course Vital Signs 06/01/18 06/01/18 08:43 10:39 Temperature 97.6 F Pulse Rate 92 75 Respiratory 20 16 Rate Blood Pressure 125/74 150/95 O2 Sat by Pulse 100 98 Oximetry Medical Decision Making - Medical Decision Making 63-year-old male presented for abdominal pain. Patient had CT which shows metastatic liver cancer. Patient will be admitted to the hospital with consult to oncology - Lab Data Result diagrams: 06/01/18 08:55 06/01/18 08:55 Lab Results 06/01/18 06/01/18 06/01/18 Range/Units 08:55 08:55 08:55 WBC 6.9 (3.8-10.6) k/uL RBC 4.74 (4.30-5.90) m/uL Hgb 14.5 (13.0-17.5) gm/dL Hct 43.3 (39.0-53.0) % MCV 91.2 (80.0-100.0) fL MCH 30.6 (25.0-35.0) pg MCHC 33.5 (31.0-37.0) g/dL RDW 14.8 (11.5-15.5) % Plt Count 222 (150-450) k/uL Neutrophils % 69 % Lymphocytes % 21 % Monocytes % 7 % Eosinophils % 1 % Basophils % 1 % Neutrophils # 4.7 (1.3-7.7) k/uL Lymphocytes # 1.4 (1.0-4.8) k/uL Monocytes # 0.5 (0-1.0) k/uL Eosinophils # 0.1 (0-0.7) k/uL Basophils # 0.0 (0-0.2) k/uL Sodium 140 (137-145) mmol/L Potassium 4.0 (3.5-5.1) mmol/L Chloride 106 (98-107) mmol/L Carbon Dioxide 22 (22-30) mmol/L Anion Gap 12 mmol/L BUN 16 (9-20) mg/dL Creatinine 0.66 (0.66-1.25) mg/dL Est GFR (CKD-EPI)AfAm >90 (>60 ml/min/1.73 sqM) Est GFR (CKD-EPI)NonAf >90 (>60 ml/min/1.73 sqM) Glucose 101 H (74-99) mg/dL Calcium 9.8 (8.4-10.2) mg/dL Total Bilirubin 0.8 (0.2-1.3) mg/dL AST 43 (17-59) U/L ALT 53 (21-72) U/L Alkaline Phosphatase 399 H (38-126) U/L Troponin I 0.017 (0.000-0.034) ng/mL Total Protein 8.3 H (6.3-8.2) g/dL Albumin 4.7 (3.5-5.0) g/dL Amylase 55 (30-110) U/L Lipase 57 (23-300) U/L Urine Color Urine Appearance (Clear) Urine pH (5.0-8.0) Ur Specific Saxis (1.001-1.035) Urine Protein (Negative) Urine Glucose (UA) (Negative) Urine Ketones (Negative) Urine Blood (Negative) Urine Nitrite (Negative) Urine Bilirubin (Negative) Urine Urobilinogen (<2.0) mg/dL Ur Leukocyte Esterase (Negative) 06/01/18 Range/Units 09:50 WBC (3.8-10.6) k/uL RBC (4.30-5.90) m/uL Hgb (13.0-17.5) gm/dL Hct (39.0-53.0) % MCV (80.0-100.0) fL MCH (25.0-35.0) pg MCHC (31.0-37.0) g/dL RDW (11.5-15.5) % Plt Count (150-450) k/uL Neutrophils % % Lymphocytes % % Monocytes % % Eosinophils % % Basophils % % Neutrophils # (1.3-7.7) k/uL Lymphocytes # (1.0-4.8) k/uL Monocytes # (0-1.0) k/uL Eosinophils # (0-0.7) k/uL Basophils # (0-0.2) k/uL Sodium (137-145) mmol/L Potassium (3.5-5.1) mmol/L Chloride (98-107) mmol/L Carbon Dioxide (22-30) mmol/L Anion Gap mmol/L BUN (9-20) mg/dL Creatinine (0.66-1.25) mg/dL Est GFR (CKD-EPI)AfAm (>60 ml/min/1.73 sqM) Est GFR (CKD-EPI)NonAf (>60 ml/min/1.73 sqM) Glucose (74-99) mg/dL Calcium (8.4-10.2) mg/dL Total Bilirubin (0.2-1.3) mg/dL AST (17-59) U/L ALT (21-72) U/L Alkaline Phosphatase (38-126) U/L Troponin I (0.000-0.034) ng/mL Total Protein (6.3-8.2) g/dL Albumin (3.5-5.0) g/dL Amylase (30-110) U/L Lipase (23-300) U/L Urine Color Yellow Urine Appearance Clear (Clear) Urine pH 6.0 (5.0-8.0) Ur Specific Saxis 1.033 (1.001-1.035) Urine Protein Trace H (Negative) Urine Glucose (UA) Negative (Negative) Urine Ketones 1+ H (Negative) Urine Blood Negative (Negative) Urine Nitrite Negative (Negative) Urine Bilirubin Negative (Negative) Urine Urobilinogen <2.0 (<2.0) mg/dL Ur Leukocyte Esterase Negative (Negative) Disposition Clinical Impression: Liver cancer, primary, with metastasis from liver to other site Disposition: ADMITTED IP TO THIS HOSP Condition: Fair Referrals: [facility],Clinic [Primary Care Provider] - 1-2 days
[2018-06-01 09:20] LABS: Basophils % (A) 1 %; Eosinophils # (A) 0.1 k/uL (0-0.7); Eosinophils % (A) 1 %; HCT 43.3 % (39.0-53.0); HGB 14.5 gm/dL (13.0-17.5); Lymphocytes # (A) 1.4 k/uL (1.0-4.8); Lymphocytes % (A) 21 %; MCH 30.6 pg (25.0-35.0); MCHC 33.5 g/dL (31.0-37.0); MCV 91.2 fL (80.0-100.0); Mean Platelet Volume 8.7; Monocytes # (A) 0.5 k/uL (0-1.0); Monocytes % (A) 7 %; Neutrophils # (A) 4.7 k/uL (1.3-7.7); Neutrophils % (A) 69 %; Platelet Count 222 k/uL (150-450); RBC 4.74 m/uL (4.30-5.90); RDW 14.8 % (11.5-15.5); WBC 6.9 k/uL (3.8-10.6)
[2018-06-01 09:29] LABS: ALT 53 U/L (21-72); AST 43 U/L (17-59); Albumin 4.7 g/dL (3.5-5.0); Alkaline Phosphatase 399 U/L (38-126); Amylase 55 U/L (30-110); Anion Gap 12 mmol/L; Blood Urea Nitrogen 16 mg/dL (9-20); Calcium 9.8 mg/dL (8.4-10.2); Carbon Dioxide 22 mmol/L (22-30); Chloride 106 mmol/L (98-107); Glucose 101 mg/dL (74-99); Lipase 57 U/L (23-300); Sodium 140 mmol/L (137-145); Total Bilirubin 0.8 mg/dL (0.2-1.3); Total Protein 8.3 g/dL (6.3-8.2)
--- NOTE | 2018-06-01 10:05 | CT ---
EXAMINATION TYPE: CT abdomen pelvis w con DATE OF EXAM: 06/01/2018 COMPARISON: 04/05/2018 INDICATION: Abd pain DLP: 449.3 mGycm, Automated exposure control for dose reduction was used. CONTRAST: 100 mL of Isovue 300. Study performed without Oral Contrast TECHNIQUE: Axial images were obtained from above the diaphragm to the pubic rami in the axial plane a t 5 mm thick sections. Reconstructed images are reviewed on the computer in the coronal plane. FINDINGS: Limited CT sections are obtained the lung bases. There is a 0.5 cm nodule within the lingula. Smalle r nodules adjacent to the major fissure. There is a 0.5 cm nodule within the right middle lobe. There is a 0.8 cm nodule above the right diaphragm. Posterior medial left lung base nodule measures 0.4 cm . There is a nodule just above the diaphragm measuring 0.4 cm on the left. Posterior lateral left neva g nodules present measuring 0.5 cm. There are additional smaller nodules evident within the field-of- view these appear to be interval findings from 04/05/2018. CT ABDOMEN: There are numerous periaortic and retrocaval lymph nodes at the level the renal veins. Th e largest in the periaortic region measures 1.7 cm. Liver: Liver has a lobular appearance. There is a mass within the hilar region with ill-defined jarad ns measuring approximately 2.7 cm this is suspicious this may be an interval finding. The additional lobular density changes within the periphery of the liver appears similar to the prior examination. Spleen: Normal Pancreas: Normal. The pancreatic duct is identified but does not appear dilated. Adrenal glands: The adrenal glands are normal. Gallbladder: Couple of small gallstones are present. Kidneys: No masses are evident. No hydronephrosis is present. No cysts are present. Delayed images were obtained through the kidneys, which remain unremarkable. Aorta: Vascular calcification is within the aorta. Inferior vena cava: Normal. CT PELVIS: Loops of bowel within the abdomen and pelvis are normal. There are loops of bowel which are incom pletely distended or lack oral contrast limiting their evaluation. Appendix: Normal as visualized. Urinary bladder: Normal. Genitourinary structures: Prostate appears within normal limits. Osseous structures: No suspicious lytic or sclerotic lesions. Some mild facet degenerative changes pr esent. IMPRESSIONS: 1. Interval development of multiple small nodules within the lung bases. 2. There appears to be development of a 2.7 cm liver mass near the hilum. 3. Multiple enlarging lymph nodes in the periaortic and retrocaval regions at the level the renal vei ns. 4. Cholelithiasis.
[2018-06-01 10:09] LABS: Appearance,Urine Clear (Clear); Bilirubin,Urine Negative (Negative); Blood,Urine Negative (Negative); Color,Urine Yellow; Glucose,Urine (UA) Negative (Negative); Ketones,Urine 1+ (Negative); Leukocyte Esterase,Urine Negative (Negative); Nitrite,Urine Negative (Negative); Protein,Urine Trace (Negative); Specific Gravity,Urine 1.033 (1.001-1.035); Urobilinogen,Urine <2.0 mg/dL (<2.0)
[2018-06-01 10:41] VITALS: BP 150/95; PULSE 75; RESP 16
[2018-06-01] MEDS ORDERED: HYDROcodone/APAP 5-325MG 1 EACH TAB PO PRN (10:43)
[2018-06-01] MEDS ORDERED: HYDROmorphone 0.5 MG/0.5 ML SYRINGE IVP PRN (10:43)
[2018-06-01] MEDS ORDERED: NALOXONE 0.4 MG/ML 1 ML VIAL IV PRN (10:43)
[2018-06-01] MEDS ORDERED: ONDANSETRON 4 MG/2 ML VIAL IVP PRN (10:43)
== END 2018-06-01 11:37 | disposition other institution (70) ==
LOC: EC 08:41 → 3NMEDONC 10:34 → UNDOADMIN 10:34 → EC 11:37
DX: C22.8 Malignant neoplasm of liver, primary, unspecified as to type (principal); C79.89 Secondary malignant neoplasm of other specified sites; R06.2 Wheezing; K59.03 Drug induced constipation; T40.2X5A Adverse effect of other opioids, initial encounter; J44.9 Chronic obstructive pulmonary disease, unspecified; E78.5 Hyperlipidemia, unspecified; I10 Essential (primary) hypertension; M19.90 Unspecified osteoarthritis, unspecified site; F17.200 Nicotine dependence, unspecified, uncomplicated; Z79.82 Long term (current) use of aspirin; Z79.899 Other long term (current) drug therapy; Z92.21 Personal history of antineoplastic chemotherapy; Z86.69 Personal history of other diseases of the nervous system and sense organs; Z86.010 Personal history of colon polyps; Z98.890 Other specified postprocedural states; Z82.5 Family history of asthma and other chronic lower respiratory diseases
CPT/HCPCS: 36415; 93005; 80053; 82150; 83690; 84484; 85025; 81003; 74177; 99285; 96374; 96375 ×2; 96361; J2405; J1170; Q9967

== ENCOUNTER → 2018-06-15 | Day surgery (SDC) | payer OTHER ==
[~2018-06-15] MED LIST: ALPRAZolam 0.5 MG TAB PO STA; HYDROcodone/APAP 7.5-325MG 1 EACH TAB ONE; HYDROmorphone 0.5 MG/0.5 ML SYRINGE IVP STA
[2018-06-15 09:32] LABS: Mean Platelet Volume 7.1; Platelet Count 206 k/uL (150-450)
[2018-06-15 09:33] VITALS: RESP 16; TEMP 97.8
--- NOTE | 2018-06-15 11:07 | US ---
EXAMINATION TYPE: US discontinued liver bx panel DATE OF EXAM: 06/15/2018 COMPARISON: 06/01/2018 CLINICAL HISTORY: Liver mass Findings: There is a poorly defined mass within the central aspect of the liver immediately adjacent to the por katerine vein with some tributaries of the portal vein extending through the lesion. IMPRESSION: Hepatic mass corresponds to the CT abnormality
--- NOTE | 2018-06-15 13:32 | CT ---
EXAMINATION TYPE: CT biopsy abdomen percutaneous retroperitoneal mass DATE OF EXAM: 06/15/2018 COMPARISON: 06/01/2018 HISTORY: Liver and retroperitoneal mass CT DLP: 444mGycm The procedure was explained to the patient. The risks, complications, benefits, and alternatives wer e discussed and any questions were answered. Informed consent was obtained. Patient was placed pron e on the CT table and prepped and draped in the usual sterile fashion. All elements of maximal barrier and sterile technique utilized. Utilizing CT guidance, an 18 gauge core biopsy needle access into the left periaortic mass was achiev ed and two 18 gauge core samples were obtained. The patient was stable throughout the procedure and remained stable upon discharge. IMPRESSION: 1. Successful 18 gauge core biopsy of the requested retroperitoneal mass.
[2018-06-15 14:35] VITALS: BP 154/92; PULSE 76
== END ==
LOC: RADPROMAIN 09:00
PROVIDERS: ATTEND Internal Medicine Hematology & Oncology
DX: C78.6 Secondary malignant neoplasm of retroperitoneum and peritoneum (principal); Z53.8 Procedure and treatment not carried out for other reasons
CPT/HCPCS: 88305; 85049; 85610; 88342; 88341; 96374; 36415; 76705; 49180; 77012; 47000; J1170

== ENCOUNTER 2018-07-06 19:49 | Inpatient (IN) | payer OTHER, MEDICARE ==
[2018-07-06] MEDS ORDERED: SODIUM CHLORIDE 0.9% 1,000 ML IV STA (20:40)
[2018-07-06] MEDS ORDERED: MORPHINE SULFATE 4 MG/ML SYRINGE IV STA (20:40)
[2018-07-06 20:53] LABS: Basophils # (A) 0.1 k/uL (0-0.2); Basophils % (A) 1 %; Eosinophils # (A) 0.1 k/uL (0-0.7); Eosinophils % (A) 1 %; HCT 40.6 % (39.0-53.0); HGB 13.5 gm/dL (13.0-17.5); Lymphocytes # (A) 1.2 k/uL (1.0-4.8); Lymphocytes % (A) 16 %; MCH 30.9 pg (25.0-35.0); MCHC 33.1 g/dL (31.0-37.0); MCV 93.1 fL (80.0-100.0); Mean Platelet Volume 7.6; Monocytes # (A) 0.6 k/uL (0-1.0); Monocytes % (A) 8 %; Neutrophils # (A) 5.4 k/uL (1.3-7.7); Neutrophils % (A) 72 %; Platelet Count 251 k/uL (150-450); RBC 4.36 m/uL (4.30-5.90); RDW 14.1 % (11.5-15.5); WBC 7.4 k/uL (3.8-10.6)
[2018-07-06 21:04] LABS: Ammonia <9 umol/L (<30); Lactic Acid, Venous 1.5 mmol/L (0.7-2.0)
[2018-07-06 21:06] LABS: ALT 67 U/L (21-72); AST 78 U/L (17-59); Albumin 4.7 g/dL (3.5-5.0); Alkaline Phosphatase 769 U/L (38-126); Amylase 45 U/L (30-110); Anion Gap 10 mmol/L; Blood Urea Nitrogen 31 mg/dL (9-20); Carbon Dioxide 26 mmol/L (22-30); Chloride 98 mmol/L (98-107); Creatine Kinase 38 U/L (55-170); Glucose 85 mg/dL (74-99); Lipase 32 U/L (23-300); Magnesium 1.8 mg/dL (1.6-2.3); Phosphorus 3.4 mg/dL (2.5-4.5); Potassium 4.4 mmol/L (3.5-5.1); Sodium 134 mmol/L (137-145); Total Protein 8.3 g/dL (6.3-8.2)
[2018-07-06] MEDS ORDERED: HYDROmorphone 0.5 MG/0.5 ML SYRINGE IVP STA (21:31)
--- NOTE | 2018-07-06 21:41 | ED ---
Abdominal Pain HPI - General Chief Complaint: Abdominal Pain Stated Complaint: pain and unable to eat cancer pt Time Seen by Provider: 07/06/18 20:34 Source: patient, RN notes reviewed, old records reviewed Mode of arrival: wheelchair Limitations: no limitations - History of Present Illness Initial Comments: This is a 63-year-old male the ER for evaluation. Today's presenting for evaluation of abdominal pain generalized pain. Patient's nausea decreased appetite vomiting. Patient has recurrence of CVA. Known history, not currently on therapy. She is having progressive weakness and increased stress over the past few weeks to months. Denies fever. Positive nausea no active vomiting no diarrhea MD Complaint: abdominal pain, flank pain -: month(s) Location: diffuse Migration to: no migration Severity: moderate Severity scale (1-10): 5 Quality: stabbing, aching Consistency: constant Improves With: nothing Worsens With: nothing Associated Symptoms: nausea, anorexia Treatments Prior to Arrival: prescription analgesics - Related Data Home Medications Medication Instructions Recorded Confirmed Aspirin EC [Ecotrin Low Dose] 81 mg PO DAILY 04/19/15 07/06/18 Pravastatin Sodium [Pravachol] 10 mg PO HS 04/19/15 07/06/18 amLODIPine BESYLATE [Norvasc] 5 mg PO DAILY 04/19/15 07/06/18 Tiotropium 18 Mcg/Puff [Spiriva] 1 cap INHALATION RT-DAILY 02/28/17 07/06/18 Topiramate [Topamax] 50 mg PO BID 02/28/17 07/06/18 Sennosides/Docusate Sodium 1 tab PO DAILY PRN 07/06/18 07/06/18 [Senna-S Laxative Tablet] fentaNYL 25MCG/HR PATCH [Duragesic 1 patch TRANSDERM Q72H 07/06/18 07/06/18 25MCG/HR] Allergies Allergy/AdvReac Type Severity Reaction Status Date / Time No Known Allergies Allergy Verified 07/06/18 21:01 Review of Systems ROS Statement: Those systems with pertinent positive or pertinent negative responses have been documented in the HPI. ROS Other: All systems not noted in ROS Statement are negative. Past Medical History Past Medical History: Cancer, COPD, Hyperlipidemia, Hypertension, Liver Disease, Osteoarthritis (OA) Additional Past Medical History / Comment(s): past abby wrist fx(no sx), past migraines. "fainting spells all my life (unk cause)until they found right meds for me and i have'nt had any in 5 years", hx liver cancer 2018, was on chemo, abd. pain & new spot on liver per pt. History of Any Multi-Drug Resistant Organisms: None Reported Past Surgical History: Hernia Repair Additional Past Surgical History / Comment(s): sx for "ruptured belly button" as infant. colonoscopy w/ polypectomy-benign, liver biopsy, port a cath Past Anesthesia/Blood Transfusion Reactions: No Reported Reaction Past Psychological History: Anxiety Smoking Status: Current every day smoker Past Alcohol Use History: Daily Past Drug Use History: Marijuana - Past Family History Father Family Medical History: COPD Additional Family Medical History / Comment(s): Mother History Unknown: Yes Family Medical History: No Reported History Additional Family Medical History / Comment(s): still alive-healthy General Exam Limitations: no limitations General appearance: alert, in no apparent distress, lethargic, cachectic Head exam: Present: atraumatic, normocephalic, normal inspection Eye exam: Present: normal appearance, PERRL, EOMI. Absent: scleral icterus, conjunctival injection, periorbital swelling ENT exam: Present: normal exam, mucous membranes moist Neck exam: Present: normal inspection. Absent: tenderness, meningismus, lymphadenopathy Respiratory exam: Present: normal lung sounds bilaterally. Absent: respiratory distress, wheezes, rales, rhonchi, stridor Cardiovascular Exam: Present: regular rate, normal rhythm, normal heart sounds. Absent: systolic murmur, diastolic murmur, rubs, gallop, clicks GI/Abdominal exam: Present: soft, normal bowel sounds. Absent: distended, tenderness, guarding, rebound, rigid Extremities exam: Present: normal inspection, full ROM, normal capillary refill. Absent: tenderness, pedal edema, joint swelling, calf tenderness Back exam: Present: normal inspection Neurological exam: Present: alert, oriented X3, CN II-XII intact Psychiatric exam: Present: normal affect, normal mood Skin exam: Present: warm, dry, intact, normal color. Absent: rash Course Vital Signs 07/06/18 07/06/18 07/06/18 20:18 20:30 20:40 Temperature 98.1 F Pulse Rate 99 81 Respiratory 16 Rate Blood Pressure 85/64 113/88 113/88 O2 Sat by Pulse 100 91 L Oximetry 07/06/18 20:50 Temperature Pulse Rate 82 Respiratory Rate Blood Pressure 124/97 O2 Sat by Pulse 96 Oximetry - Reevaluation(s) Reevaluation #1: 07/06/18 22:03 Medical record reviewed Reevaluation #2: 07/06/18 22:03 With no improvement here in the ER Medical Decision Making - Medical Decision Making 63 male the ER for evaluation of worsening CVA pain, intractable nausea and vomiting. We'll admit for pain control and symptom therapy - Lab Data Result diagrams: 07/06/18 20:30 07/06/18 20:30 Lab Results 07/06/18 07/06/18 07/06/18 Range/Units 20:30 20:30 20:30 WBC 7.4 (3.8-10.6) k/uL RBC 4.36 (4.30-5.90) m/uL Hgb 13.5 (13.0-17.5) gm/dL Hct 40.6 (39.0-53.0) % MCV 93.1 (80.0-100.0) fL MCH 30.9 (25.0-35.0) pg MCHC 33.1 (31.0-37.0) g/dL RDW 14.1 (11.5-15.5) % Plt Count 251 (150-450) k/uL Neutrophils % 72 % Lymphocytes % 16 % Monocytes % 8 % Eosinophils % 1 % Basophils % 1 % Neutrophils # 5.4 (1.3-7.7) k/uL Lymphocytes # 1.2 (1.0-4.8) k/uL Monocytes # 0.6 (0-1.0) k/uL Eosinophils # 0.1 (0-0.7) k/uL Basophils # 0.1 (0-0.2) k/uL Sodium 134 L (137-145) mmol/L Potassium 4.4 (3.5-5.1) mmol/L Chloride 98 (98-107) mmol/L Carbon Dioxide 26 (22-30) mmol/L Anion Gap 10 mmol/L BUN 31 H (9-20) mg/dL Creatinine 0.70 (0.66-1.25) mg/dL Est GFR (CKD-EPI)AfAm >90 (>60 ml/min/1.73 sqM) Est GFR (CKD-EPI)NonAf >90 (>60 ml/min/1.73 sqM) Glucose 85 (74-99) mg/dL Plasma Lactic Acid [place] 1.5 (0.7-2.0) mmol/L Calcium 10.0 (8.4-10.2) mg/dL Phosphorus 3.4 (2.5-4.5) mg/dL Magnesium 1.8 (1.6-2.3) mg/dL Total Bilirubin 1.0 (0.2-1.3) mg/dL AST 78 H (17-59) U/L ALT 67 (21-72) U/L Alkaline Phosphatase 769 H (38-126) U/L Ammonia <9 (<30) umol/L Creatine Kinase 38 L (55-170) U/L Troponin I (0.000-0.034) ng/mL Total Protein 8.3 H (6.3-8.2) g/dL Albumin 4.7 (3.5-5.0) g/dL Amylase 45 (30-110) U/L Lipase 32 (23-300) U/L 07/06/18 Range/Units 20:30 WBC (3.8-10.6) k/uL RBC (4.30-5.90) m/uL Hgb (13.0-17.5) gm/dL Hct (39.0-53.0) % MCV (80.0-100.0) fL MCH (25.0-35.0) pg MCHC (31.0-37.0) g/dL RDW (11.5-15.5) % Plt Count (150-450) k/uL Neutrophils % % Lymphocytes % % Monocytes % % Eosinophils % % Basophils % % Neutrophils # (1.3-7.7) k/uL Lymphocytes # (1.0-4.8) k/uL Monocytes # (0-1.0) k/uL Eosinophils # (0-0.7) k/uL Basophils # (0-0.2) k/uL Sodium (137-145) mmol/L Potassium (3.5-5.1) mmol/L Chloride (98-107) mmol/L Carbon Dioxide (22-30) mmol/L Anion Gap mmol/L BUN (9-20) mg/dL Creatinine (0.66-1.25) mg/dL Est GFR (CKD-EPI)AfAm (>60 ml/min/1.73 sqM) Est GFR (CKD-EPI)NonAf (>60 ml/min/1.73 sqM) Glucose (74-99) mg/dL Plasma Lactic Acid [place] (0.7-2.0) mmol/L Calcium (8.4-10.2) mg/dL Phosphorus (2.5-4.5) mg/dL Magnesium (1.6-2.3) mg/dL Total Bilirubin (0.2-1.3) mg/dL AST (17-59) U/L ALT (21-72) U/L Alkaline Phosphatase (38-126) U/L Ammonia (<30) umol/L Creatine Kinase (55-170) U/L Troponin I <0.012 (0.000-0.034) ng/mL Total Protein (6.3-8.2) g/dL Albumin (3.5-5.0) g/dL Amylase (30-110) U/L Lipase (23-300) U/L - EKG Data -: EKG Interpreted by Me (EKG shows sinus rhythm rate of 87, ND 1:30, QRS 94, QTc 46) Disposition Clinical Impression: Liver mass, Transaminitis, Intractable abdominal pain, Abdominal pain, Nausea & vomiting Disposition: ADMITTED IP TO THIS HOSP Condition: Fair Is patient prescribed a controlled substance at d/c from ED?: No Referrals: [facility],Clinic [Primary Care Provider] - 1-2 days
[2018-07-06] MEDS ORDERED: ONDANSETRON 4 MG/2 ML VIAL IVP PRN (22:01)
[2018-07-06] MEDS ORDERED: SODIUM CHLORIDE 0.9% 1,000 ML IV ONE (22:01)
[2018-07-06] MEDS ORDERED: ONDANSETRON 4 MG/2 ML VIAL IVP STA (22:01)
[2018-07-06 23:51] VITALS: BMI 14.8
[2018-07-07] MEDS: HYDROmorphone 1 MG/ML 1 ML SYRINGE IVP PRN ×3 (02:52→11:51)
[2018-07-07] MEDS: PANTOPRAZOLE 40 MG/10 ML VIAL IVP SCH ×2 (08:32→08:36)
[2018-07-07] MEDS ORDERED: SENNOSIDES-DOCUSATE SODIUM 1 EACH TAB PO PRN (09:29)
[2018-07-07] MEDS: TOPIRAMATE 25 MG TAB PO SCH ×2 (11:52→21:00)
[2018-07-07] MEDS ORDERED: HYDROcodone/APAP 10-325MG 1 EACH TAB PO PRN (14:12)
[2018-07-07] MEDS ORDERED: SENNOSIDES 8.6 MG TAB PO PRN (14:13)
[2018-07-07] MEDS ORDERED: POLYETHYLENE GLYCOL 3350 17 GM POWD.PACK PO PRN (14:14)
[2018-07-07] MEDS: ASPIRIN 81 MG PO SCH (14:43)
[2018-07-07] MEDS: SODIUM CHLORIDE 0.9% 1,000 ML IV SCH (14:44)
--- NOTE | 2018-07-07 14:56 | P.HPIM ---
History of Present Illness 63-year-old male came in with nausea vomiting which improved now patient probably has gastritis and the his gastritis symptoms improved with the Protonix. Patient is having severe abdominal pain generalized abdominal pain sharp nonradiating all of the abdomen patient appears to have metastatic disease to the abdomen which is causing pain.patient doesn't have any fever chills patient doesn't have any rebound or rigidity although patient's abdomen is bit tight and mildly tender diffusely. patient has history of hepatocellular ca rcinoma completed chemotherapy with the lateral surface cancer recently from his recent imaging studies. Review of Systems REVIEW OF SYSTEMS: CONSTITUTIONAL: No fever, no malaise, no fatigue. HEENT: No recent visual problems or hearing problems. Denied any sore throat. CARDIOVASCULAR: No chest pain, orthopnea, PND, no palpitations, no syncope. PULMONARY: No shortness of breath, no cough, no hemoptysis. GASTROINTESTINAL: No diarrhea NEUROLOGICAL: No headaches, no weakness, no numbness. HEMATOLOGICAL: Denies any bleeding or petechiae. GENITOURINARY: Denies any burning micturition, frequency, or urgency. MUSCULOSKELETAL/RHEUMATOLOGICAL: Denies any joint pain, swelling, or any muscle pain. ENDOCRINE: Denies any polyuria or polydipsia. The rest of the 14-point review of systems is negative. Past Medical History Past Medical History: Cancer, COPD, Hyperlipidemia, Hypertension, Liver Disease, Osteoarthritis (OA) Additional Past Medical History / Comment(s): past abby wrist fx(no sx), past migraines. "fainting spells all my life (unk cause)until they found right meds for me and i have'nt had any in 5 years", hx liver cancer 2018, was on chemo, abd. pain & new spot on liver per pt. History of Any Multi-Drug Resistant Organisms: None Reported Past Surgical History: Hernia Repair Additional Past Surgical History / Comment(s): sx for "ruptured belly button" as . colonoscopy w/ polypectomy-benign, liver biopsy, port a cath Past Anesthesia/Blood Transfusion Reactions: No Reported Reaction Past Psychological History: Anxiety Additional Psychological History / Comment(s): lives alone in apt.has 20 steps to navigate. no home care services, no medical equpiment. 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 past daily alcohol none sine 2005 Past Drug Use History: Marijuana Additional Drug Use History / Comment(s): rare use of marijuana - Past Family History Father Family Medical History: COPD Additional Family Medical History / Comment(s): Mother History Unknown: Yes Family Medical History: No Reported History Additional Family Medical History / Comment(s): still alive-healthy Medications and Allergies Home Medications Medication Instructions Recorded Confirmed Type Aspirin EC [Ecotrin Low Dose] 81 mg PO DAILY 04/19/15 07/06/18 History Pravastatin Sodium [Pravachol] 10 mg PO HS 04/19/15 07/06/18 History amLODIPine BESYLATE [Norvasc] 5 mg PO DAILY 04/19/15 07/06/18 History Tiotropium 18 Mcg/Puff [Spiriva] 1 cap INHALATION RT-DAILY 02/28/17 07/06/18 History Topiramate [Topamax] 50 mg PO BID 02/28/17 07/06/18 History Sennosides/Docusate Sodium 1 tab PO DAILY PRN 07/06/18 07/06/18 History [Senna-S Laxative Tablet] fentaNYL 25MCG/HR PATCH [Duragesic 1 patch TRANSDERM Q72H 07/06/18 07/06/18 History 25MCG/HR] Allergies Allergy/AdvReac Type Severity Reaction Status Date / Time No Known Allergies Allergy Verified 07/06/18 21:01 Physical Exam Vitals: Vital Signs Temp Pulse Pulse Resp BP BP Pulse Ox 07/07/18 12:05 97.4 F L 92 17 137/79 100 07/07/18 05:19 97.5 F L 91 16 127/69 100 07/06/18 23:52 97.5 F L 90 18 134/84 99 07/06/18 20:50 82 124/97 96 07/06/18 20:40 81 113/88 91 L 07/06/18 20:30 113/88 07/06/18 20:18 98.1 F 99 16 85/64 100 Intake and Output 07/06/18 07/07/18 07/07/18 22:59 06:59 14:59 Intake Total 200 Balance 200 Intake: Amount of Fluid Infused ( 200 ml) Other: # Voids 1 Weight 44.2 kg PHYSICAL EXAMINATION: GENERAL: The patient is alert and oriented x3, not in any acute distress. thin built, cachectic, gentleman secondary to L cellular carcinoma HEENT: Pupils are round and equally reacting to light. EOMI. No scleral icterus. No conjunctival pallor. Normocephalic, atraumatic. No pharyngeal erythema. No thyromegaly. CARDIOVASCULAR: S1 and S2 present. No murmurs, rubs, or gallops. PULMONARY: Chest is clear to auscultation, no wheezing or crackles. ABDOMEN: bit rigid no rebound mild diffuse tenderness bowel sounds are present sluggish MUSCULOSKELETAL: No joint swelling or deformity. EXTREMITIES: No cyanosis, clubbing, or pedal edema. NEUROLOGICAL: Gross neurological examination did not reveal any focal deficits. SKIN: No rashes. Results CBC & Chem 7: 07/06/18 20:30 07/06/18 20:30 Labs: Abnormal Lab Results - Last 24 Hours (Table) 07/06/18 Range/Units 20:30 Sodium 134 L (137-145) mmol/L BUN 31 H (9-20) mg/dL AST 78 H (17-59) U/L Alkaline Phosphatase 769 H (38-126) U/L Creatine Kinase 38 L (55-170) U/L Total Protein 8.3 H (6.3-8.2) g/dL Thrombosis Risk Factor Assmnt - Choose All That Apply Each Factor Represents 1 point: Abnormal pulmonary function (COPD) Each Risk Factor Represents 2 Points: Age 61-74 years Thrombosis Risk Factor Assessment Total Risk Factor Score: 3 Thrombosis Risk Factor Assessment Level: Moderate Risk Assessment and Plan Plan: nausea vomiting: Secondary to either peptic ulcer disease or gastritis, symptoms improved with Protonix patient will be continued on IV fluids and patient was started on diet and advance as tolerated. -Abdominal pain appears to be secondary to metastatic disease to the abdomen from his sepsis alert carcinoma we'll increase the dose of fentanyl patch to 50 g and start him on [place] tens as-needed basis for abdominal pain and also started on bowel regimen to avoid constipation hematology oncology were consu lted -Hypovolemic hyponatremia secondary to nausea vomiting patient will be continued on IV fluids recheck basic metabolic profile tomorrow -hepatocellular carcinoma which relapsed -COPD without any acute exacerbation -hypertension -patient will need pharmacologic DVT prophylaxis
--- NOTE | 2018-07-07 20:23 | P.CONS ---
History of Present Illness - Reason for Consult Consult date: 07/07/18 static squamous cell cancer unknown primary. Intractable cancer pain - History of Present Illness The patient is a 63-year-old white male, initially seen in consult at [facility] in 03/16. He had presented with progressive abdominal pain, and weight loss of about 50 pounds over the past 1 year. He was found to have widespread metastatic disease, especially involving the liver, along with lung nodules. 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 The patient was then seen by Dr. Schwartz, and received carboplatin and Taxol till 08/14, with a good symptomatic response and partial radiologic response. He was then followed with observation, the last month, when he started to have increasing abdominal pain in the right upper quadrant and epigastrium. CT abdomen and pelvis last month showed progression. The patient had repeat biopsy, again revealing metastatic squamous cell cancer with primary unable to be determined. He was seen in the office in the last week of 06/15, with a plan to start immunotherapy with opdivo. Approval to start the same is in process. The patient has been on fentanyl 25 g, as well as [place] 10/325, prescribed by the [facility]. He states that his pain has been getting progressively worse, and has not been controlled despite taking 6 and occasionally 7 Norcos per day. He therefore came into the emergency room, and was admitted for further management Review of Systems Constitutional: Reports chronic pain, Reports fatigue, Reports poor appetite, Reports weight loss Eyes: denies blurred vision, denies pain Ears: deny: decreased hearing, ear discharge, earache, tinnitus Ears, nose, mouth and throat: Denies headache, Denies sore throat Cardiovascular: Reports decreased exercise tolerance Respiratory: Denies cough Gastrointestinal: Reports abdominal pain, Reports constipation Genitourinary: Reports as per HPI Musculoskeletal: Reports muscle weakness, Denies myalgias Integumentary: Denies pruritus, Denies rash Psychiatric: Denies anxiety, Denies depression Endocrine: Reports fatigue, Reports weight change Hematologic/Lymphatic: Reports as per HPI Past Medical History Past Medical History: Cancer, COPD, Hyperlipidemia, Hypertension, Liver Disease, Osteoarthritis (OA) Additional Past Medical History / Comment(s): past abby wrist fx(no sx), past migraines. "fainting spells all my life (unk cause)until they found right meds for me and i have'nt had any in 5 years", hx liver cancer 2018, was on chemo, abd. pain & new spot on liver per pt. History of Any Multi-Drug Resistant Organisms: None Reported Past Surgical History: Hernia Repair Additional Past Surgical History / Comment(s): sx for "ruptured belly button" as infant. colonoscopy w/ polypectomy-benign, liver biopsy, port a cath Past Anesthesia/Blood Transfusion Reactions: No Reported Reaction Past Psychological History: Anxiety Additional Psychological History / Comment(s): lives alone in apt.has 20 steps to navigate. no home care services, no medical equpiment. 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 past daily alcohol none sine 2005 Past Drug Use History: Marijuana Additional Drug Use History / Comment(s): rare use of marijuana - Past Family History Father Family Medical History: COPD Additional Family Medical History / Comment(s): Mother History Unknown: Yes Family Medical History: No Reported History Additional Family Medical History / Comment(s): still alive-healthy Medications and Allergies Home Medications Medication Instructions Recorded Confirmed Type Aspirin EC [Ecotrin Low Dose] 81 mg PO DAILY 04/19/15 07/06/18 History Pravastatin Sodium [Pravachol] 10 mg PO HS 04/19/15 07/06/18 History amLODIPine BESYLATE [Norvasc] 5 mg PO DAILY 04/19/15 07/06/18 History Tiotropium 18 Mcg/Puff [Spiriva] 1 cap INHALATION RT-DAILY 02/28/17 07/06/18 History Topiramate [Topamax] 50 mg PO BID 02/28/17 07/06/18 History Sennosides/Docusate Sodium 1 tab PO DAILY PRN 07/06/18 07/06/18 History [Senna-S Laxative Tablet] fentaNYL 25MCG/HR PATCH [Duragesic 1 patch TRANSDERM Q72H 07/06/18 07/06/18 History 25MCG/HR] Allergies Allergy/AdvReac Type Severity Reaction Status Date / Time No Known Allergies Allergy Verified 07/06/18 21:01 Physical Exam Vitals: Vital Signs Temp Pulse Pulse Resp BP BP Pulse Ox 07/07/18 12:05 97.4 F L 92 17 137/79 100 07/07/18 05: 97.5 F L 91 16 127/69 100 07/06/18 23:52 97.5 F L 90 18 134/84 99 07/06/18 20:50 82 124/97 96 07/06/18 20:40 81 113/88 91 L 07/06/18 20:30 113/88 07/06/18 20:18 98.1 F 99 16 85/64 100 Intake and Output 07/07/18 07/07/18 07/07/18 06:59 14:59 22:59 Intake Total 200 800 Balance 200 800 Intake: Amount of Fluid Infused ( 200 ml) Intake, IV Titration 800 Amount Sodium Chloride 0.9% 1, 800 000 ml @ 75 mls/hr IV . [id number] JOSE Rx#:[id number] Other: # Voids 1 Weight 44.2 kg - Constitutional General appearance: no acute distress - EENT Eyes: EOMI, PERRLA ENT: hearing grossly normal, normal oropharynx - Neck Neck: no lymphadenopathy Thyroid: bilateral: normal size - Respiratory Respiratory: bilateral: CTA - Cardiovascular Rhythm: regular Heart sounds: normal: S1, S2 - Gastrointestinal General gastrointestinal: hepatomegaly (3 fingers below costal margin extending into epigastrium, tender), soft Localized gastrointestinal: tender: RUQ - Integumentary Integumentary: normal - Neurologic Neurologic: CNII-XII intact - Musculoskeletal Musculoskeletal: generalized weakness, strength equal bilaterally - Psychiatric Psychiatric: A&O x's 3, appropriate affect Results CBC & Chem 7: 07/06/18 20:30 07/06/18 20:30 Labs: Abnormal Lab Results - Last 24 Hours (Table) 07/06/18 Range/Units 20:30 Sodium 134 L (137-145) mmol/L BUN 31 H (9-20) mg/dL AST 78 H (17-59) U/L Alkaline Phosphatase 769 H (38-126) U/L Creatine Kinase 38 L (55-170) U/L Total Protein 8.3 H (6.3-8.2) g/dL Comments: pathology report reviewed CT scan - abdomen: report reviewed CT scan - pelvis: report reviewed Assessment and Plan (1) Intractable abdominal pain Narrative/Plan: This is cancer related, due to progression. The patient has chronically been on fentanyl 25 g, and [place] 10-325. However due to worsening of symptoms, his current pain regimen is no longer effective according to him. He has other associated symptoms including constipation, and loss of appetite Pain medications will be adjusted, with increase in fentanyl to 50. He is essentially maxed out on his Norcos, with lack of effectiveness at 6-7 doses per day. We will switch him to IV morphine for breakthrough pain here, and effective, plan on using oral as an outpatient. 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 At this time, the plan is to start immunotherapy with opdivo for progressive disease. He can be continued on the same treatment plan, as long as his symptoms are controlled. If pain proves difficult to control, then more aggressive conventional chemotherapy would ideally be more helpful in getting faster response. However due to his performance status, the patient is not felt to be an optimal candidate for conventional aggressive chemotherapy Current Visit: Yes Status: Acute Code(s): C79.9 - SECONDARY MALIGNANT NEOPLASM OF UNSPECIFIED SITE SNOMED Code(s): 238365439 Plan: defer to the admitting service for management of his other medical problems.
[2018-07-07] MEDS ORDERED: PRAVASTATIN SODIUM 20 MG TAB PO SCH (21:00)
[2018-07-07] MEDS: MORPHINE SULFATE 4 MG/ML SYRINGE IVP PRN (21:01)
[2018-07-07] MEDS: HEPARIN SODIUM,PORCINE 5,000 UNIT/ML 1 ML VIAL SQ SCH (21:01)
[2018-07-08] MEDS: MORPHINE SULFATE 4 MG/ML SYRINGE IVP PRN ×3 (02:55→12:57)
[2018-07-08] MEDS: ASPIRIN 81 MG PO SCH (07:46)
[2018-07-08] MEDS: PANTOPRAZOLE 40 MG/10 ML VIAL IVP SCH (07:46)
[2018-07-08] MEDS: TOPIRAMATE 25 MG TAB PO SCH (07:46)
[2018-07-08] MEDS: HEPARIN SODIUM,PORCINE 5,000 UNIT/ML 1 ML VIAL SQ SCH (07:46)
[2018-07-08] MEDS: SODIUM CHLORIDE 0.9% 1,000 ML IV SCH (07:47)
[2018-07-08 08:08] LABS: Anion Gap 8 mmol/L; Blood Urea Nitrogen 11 mg/dL (9-20); Calcium 8.9 mg/dL (8.4-10.2); Carbon Dioxide 25 mmol/L (22-30); Chloride 103 mmol/L (98-107); Glucose 88 mg/dL (74-99); Potassium 3.6 mmol/L (3.5-5.1); Sodium 136 mmol/L (137-145)
[2018-07-08] MEDS: IPRATROPIUM 0.5 MG/2.5 ML NEBU INHALATION SCH ×3 (08:27→15:45)
[2018-07-08 13:58] VITALS: BP 113/76; PULSE 89; RESP 16; TEMP 97.7
--- NOTE | 2018-07-08 14:36 | P.DS ---
Providers Date of admission: 07/07/18 14:34 Attending physician: Yg Stark Consults: 07/06/18 22:01 Consult Physician Routine Consulting Provider: Rufus Schwartz Consult Reason/Comments: nv Do you want consulting provider notified?: Yes Primary care physician: [facility] Course: 63-year-old male came in with nausea vomiting which improved now patient probably has gastritis and the his gastritis symptoms improved with the Protonix. Patient is having severe abdominal pain generalized abdominal pain sharp nonradiating all of the abdomen patient appears to have metastatic disease to the abdomen which is causing pain.patient doesn't have any fever chills patient doesn't have any rebound or rigidity although patient's abdomen is bit tight and mildly tender diffusely. patient has history of hepatocellular carcinoma completed chemotherapy with the lateral surface cancer recently from his recent imaging studies. 07/08/2018 Patient's the nausea vomiting completely resolved pain improved patient will be discharged on 50 g of fentanyl patch and will continue his [place] that he has at home. Hyponatremia improved renal function improved. PHYSICAL EXAMINATION: GENERAL: The patient is alert and oriented x3, not in any acute distress. thin built, cachectic. HEENT: Pupils are round and equally reacting to light. EOMI. No scleral icterus. No conjunctival pallor. Normocephalic, atraumatic. No pharyngeal erythema. No thyromegaly. CARDIOVASCULAR: S1 and S2 present. No murmurs, rubs, or gallops. PULMONARY: Chest is clear to auscultation, no wheezing or crackles. ABDOMEN: bit rigid no rebound and no tenderness tenderness bowel sounds are present. MUSCULOSKELETAL: No joint swelling or deformity. EXTREMITIES: No cyanosis, clubbing, or pedal edema. NEUROLOGICAL: Gross neurological examination did not reveal any focal deficits. SKIN: No rashes. Assessment and Plan Plan: nausea vomiting: Secondary to either peptic ulcer disease or gastritis, symptoms improved with Protonix patient . -Abdominal pain appears to be secondary to metastatic disease to the abdomen f -Hypovolemic hyponatremia secondary to nausea vomiting improved -hepatocellular carcinoma which relapsed -COPD without any acute exacerbation -hypertension -patient will need pharmacologic DVT prophylaxis Patient Condition at Discharge: Fair Plan - Discharge Summary New Discharge Prescriptions: New Lactulose [Cephulac] 20 gm PO BID PRN #10 day PRN Reason: Constipation fentaNYL 50MCG/HR PATCH [Duragesic 50MCG/HR] 1 patch TRANSDERM Q72H #3 patch Continue Pravastatin Sodium [Pravachol] 10 mg PO HS Aspirin EC [Ecotrin Low Dose] 81 mg PO DAILY Topiramate [Topamax] 50 mg PO BID Tiotropium 18 Mcg/Puff [Spiriva] 1 cap INHALATION RT-DAILY Sennosides/Docusate Sodium [Senna-S Laxative Tablet] 1 tab PO DAILY PRN PRN Reason: Constipation Discontinued amLODIPine BESYLATE [Norvasc] 5 mg PO DAILY fentaNYL 25MCG/HR PATCH [Duragesic 25MCG/HR] 1 patch TRANSDERM Q72H Discharge Medication List Aspirin EC [Ecotrin Low Dose] 81 mg PO DAILY 04/19/15 [History] Pravastatin Sodium [Pravachol] 10 mg PO HS 04/19/15 [History] Tiotropium 18 Mcg/Puff [Spiriva] 1 cap INHALATION RT-DAILY 02/28/17 [History] Topiramate [Topamax] 50 mg PO BID 02/28/17 [History] Sennosides/Docusate Sodium [Senna-S Laxative Tablet] 1 tab PO DAILY PRN 07/06/18 [History] Lactulose [Cephulac] 20 gm PO BID PRN #10 day 07/08/18 [Rx] fentaNYL 50MCG/HR PATCH [Duragesic 50MCG/HR] 1 patch TRANSDERM Q72H #3 patch 07/08/18 [Rx] Follow up Appointment(s)/Referral(s): Rufus Schwartz MD [STAFF PHYSICIAN] - 1 Week [facility] [Primary Care Provider] - 3 Days
== END 2018-07-08 17:00 | disposition home or self-care (01) | DRG 948 ==
LOC: EC 19:49 → 3NMEDONC 22:01 → OBSVTOIN 07-07 14:34
PROVIDERS: ADMIT Hospitalist; ATTEND Hospitalist
DX: G89.3 Neoplasm related pain (acute) (chronic) (principal); C22.0 Liver cell carcinoma; C79.89 Secondary malignant neoplasm of other specified sites; E87.1 Hypo-osmolality and hyponatremia; Z68.1 Body mass index [BMI] 19.9 or less, adult; E78.5 Hyperlipidemia, unspecified; E86.1 Hypovolemia; F17.210 Nicotine dependence, cigarettes, uncomplicated; F41.9 Anxiety disorder, unspecified; I10 Essential (primary) hypertension; Z86.73 Personal history of transient ischemic attack (TIA), and cerebral infarction without residual deficits; J44.9 Chronic obstructive pulmonary disease, unspecified; K29.70 Gastritis, unspecified, without bleeding; K59.00 Constipation, unspecified; Z79.82 Long term (current) use of aspirin; Z79.899 Other long term (current) drug therapy; Z82.5 Family history of asthma and other chronic lower respiratory diseases; Z09 Encounter for follow-up examination after completed treatment for conditions other than malignant neoplasm; Z92.21 Personal history of antineoplastic chemotherapy; Z86.010 Personal history of colon polyps; R63.4 Abnormal weight loss; Z79.891 Long term (current) use of opiate analgesic; Z60.2 Problems related to living alone; R55 Syncope and collapse; M19.90 Unspecified osteoarthritis, unspecified site; K27.9 Peptic ulcer, site unspecified, unspecified as acute or chronic, without hemorrhage or perforation
CPT/HCPCS: 36415; 80048; 80053; 82140; 82150; 82550; 83605; 83690; 83735; 84100; 84484; 85025; 96361; 96374; 96375; 99285

== ENCOUNTER 2018-07-15 20:41 | Inpatient (IN) | payer OTHER, MEDICARE ==
[2018-07-15] MEDS ORDERED: MORPHINE SULFATE 4 MG/ML SYRINGE IVP PRN (21:06)
[2018-07-15] MEDS ORDERED: ONDANSETRON 4 MG/2 ML VIAL IVP STA (21:06)
--- NOTE | 2018-07-15 21:09 | ED ---
Abdominal Pain HPI - General Chief Complaint: Abdominal Pain Stated Complaint: Abd Pain Time Seen by Provider: 07/15/18 20:57 Source: patient Limitations: no limitations - History of Present Illness Initial Comments: Patient is a 63-year-old, ill-appearing male who presents with a chief complaint abdominal pain. He has a history of liver cancer diagnosed last year. The patient went through chemotherapy and was thought to be cancer free however he was informed recently that his cancer has come back. He states that he lost about 40 pounds in the last several months secondary to inability to eat. Patient states he has 7 out of 10 pain in his epigastric area, he characterizes it as sharp in nature. Aggravating factors include bending, twisting, moving. He states that he has had falls at home. Patient is having trouble tolerating liquids as well. - Related Data Home Medications Medication Instructions Recorded Confirmed Aspirin EC [Ecotrin Low Dose] 81 mg PO DAILY 04/19/15 07/15/18 Pravastatin Sodium [Pravachol] 10 mg PO HS 04/19/15 07/15/18 Tiotropium 18 Mcg/Puff [Spiriva] 1 cap INHALATION RT-DAILY PRN 02/28/17 07/15/18 Topiramate [Topamax] 50 mg PO BID 02/28/17 07/15/18 Sennosides/Docusate Sodium 1 tab PO DAILY PRN 07/06/18 07/15/18 [Senna-S Laxative Tablet] HYDROcodone/APAP 10-325MG [[place] 1 tab PO TID PRN 07/15/18 07/15/18 10-325] Previous Rx's Medication Instructions Recorded Lactulose [Cephulac] 20 gm PO BID PRN #10 day 07/08/18 Omeprazole [PriLOSEC] 40 mg PO AC-BRKFST #14 capsule. 07/08/18 fentaNYL 50MCG/HR PATCH [Duragesic 1 patch TRANSDERM Q72H #3 patch 07/08/18 50MCG/HR] Allergies Allergy/AdvReac Type Severity Reaction Status Date / Time No Known Allergies Allergy Verified 07/15/18 23:07 Review of Systems ROS Statement: Those systems with pertinent positive or pertinent negative responses have been documented in the HPI. ROS Other: All systems not noted in ROS Statement are negative. Constitutional: Reports: weakness, weight change Gastrointestinal: Reports: abdominal pain, nausea Past Medical History Past Medical History: Cancer, COPD, Hyperlipidemia, Hypertension, Liver Disease, Osteoarthritis (OA) Additional Past Medical History / Comment(s): past abby wrist fx(no sx), past migraines. hx liver cancer 2018, was on chemo, abd. pain & new spot on liver per pt, alcoholism History of Any Multi-Drug Resistant Organisms: None Reported Past Surgical History: Hernia Repair Additional Past Surgical History / Comment(s): sx for "ruptured belly button" as . colonoscopy w/ polypectomy-benign, liver biopsy, port a cath Past Anesthesia/Blood Transfusion Reactions: No Reported Reaction Past Psychological History: Anxiety Smoking Status: Current every day smoker Past Alcohol Use History: None Reported Past Drug Use History: Marijuana - Past Family History Father Family Medical History: COPD Additional Family Medical History / Comment(s): Mother History Unknown: Yes Family Medical History: No Reported History Additional Family Medical History / Comment(s): still alive-healthy General Exam Limitations: no limitations General appearance: alert, in no apparent distress, cachectic Head exam: Present: atraumatic, normocephalic Eye exam: Present: scleral icterus ENT exam: Present: mucous membranes dry Neck exam: Present: normal inspection Respiratory exam: Present: decreased breath sounds. Absent: respiratory distress, wheezes Cardiovascular Exam: Present: regular rate, normal rhythm GI/Abdominal exam: Present: soft, tenderness (Tenderness in the epigastric area). Absent: distended Rectal exam: Present: deferred Extremities exam: Present: normal inspection Back exam: Present: normal inspection Neurological exam: Present: alert, oriented X3 Psychiatric exam: Present: normal affect, normal mood Skin exam: Present: warm, dry, intact, other (patient mildly jaundice ) Course Vital Signs 07/15/18 07/15/18 07/15/18 20:51 21:04 22:08 Temperature 97.6 F Pulse Rate 113 H 76 92 Respiratory 18 18 16 Rate Blood Pressure 128/83 141/93 154/71 O2 Sat by Pulse 98 96 100 Oximetry 07/15/18 23:36 Temperature 98 F Pulse Rate 88 Respiratory 18 Rate Blood Pressure 167/90 O2 Sat by Pulse 96 Oximetry Medical Decision Making - Medical Decision Making Patient presents with a chief complaint of abdominal pain. On initial evaluation, vital signs showed tachycardia but are otherwise unremarkable. Pat ient appears ill and cachectic. He will be evaluated basic labs including cardiac enzymes, liver profile and lipase. He'll be sent for computed tomography scan of the abdomen and pelvis with IV contrast. EKG performed at 2120 shows sinus rhythm at a rate of 90 bpm, sinus within normal limits, there is evidence of biatrial enlargement and nonspecific T-wave abnormalities. No acute signs of ischemia present. 10:04 PM Evaluation of this patient is remarkable for transaminitis, an alkaline phos phatase of 1514. CT imaging shows constellation of findings consistent with worsening metastatic disease when compared to previous study. There is interval development of subcentimeter pulmonary nodules in the evaluated areas of the lung, there is interval increase in the size of a hepatic lesion with development of mild intrahepatic biliary ductal dilation which likely accounts for the patient's elevated liver enzymes and jaundice appearance. There is increased retroperitoneal adenopathy. There is nothing on the results. At this time, patient will be admitted for dehydration and evaluation by oncology. Case discussed with Dr. Perez who accepts admission consult to Dr. Schwartz - Lab Data Result diagrams: 07/15/18 21:12 07/15/18 21:12 Lab Results 07/15/18 07/15/18 07/15/18 Range/Units 21:12 21:12 21:12 WBC 8.1 (3.8-10.6) k/uL RBC 4.44 (4.30-5.90) m/uL Hgb 13.4 (13.0-17.5) gm/dL Hct 41.9 (39.0-53.0) % MCV 94.4 (80.0-100.0) fL MCH 30.3 (25.0-35.0) pg MCHC 32.0 (31.0-37.0) g/dL RDW 14.3 (11.5-15.5) % Plt Count 255 (150-450) k/uL Neutrophils % 80 % Lymphocytes % 12 % Monocytes % 7 % Eosinophils % 1 % Basophils % 0 % Neutrophils # 6.4 (1.3-7.7) k/uL Lymphocytes # 0.9 L (1.0-4.8) k/uL Monocytes # 0.5 (0-1.0) k/uL Eosinophils # 0.1 (0-0.7) k/uL Basophils # 0.0 (0-0.2) k/uL Sodium 139 (137-145) mmol/L Potassium 4.0 (3.5-5.1) mmol/L Chloride 102 (98-107) mmol/L Carbon Dioxide 26 (22-30) mmol/L Anion Gap 11 mmol/L BUN 27 H (9-20) mg/dL Creatinine 0.73 (0.66-1.25) mg/dL Est GFR (CKD-EPI)AfAm >90 (>60 ml/min/1.73 sqM) Est GFR (CKD-EPI)NonAf >90 (>60 ml/min/1.73 sqM) Glucose 124 H (74-99) mg/dL Calcium 10.3 H (8.4-10.2) mg/dL Total Bilirubin 4.6 H (0.2-1.3) mg/dL AST 181 H (17-59) U/L ALT 261 H (21-72) U/L Alkaline Phosphatase 1514 H (38-126) U/L Troponin I <0.012 (0.000-0.034) ng/mL Total Protein 7.9 (6.3-8.2) g/dL Albumin 4.3 (3.5-5.0) g/dL Lipase 31 (23-300) U/L Disposition Clinical Impression: Metastatic cancer to liver, Abdominal pain, Biliary obstruction, Dehydration, Jaundice, Liver mass, Transaminitis Disposition: ADMITTED IP TO THIS [facility] Condition: Fair Decision to Admit Reason: Admit from [facility] - Out of Hospital Transfer - Req. Specs Out of Hospital Transfer - Requested Specifics: Other Non-Acute
[2018-07-15 21:21] LABS: Basophils % (A) 0 %; Eosinophils # (A) 0.1 k/uL (0-0.7); Eosinophils % (A) 1 %; HCT 41.9 % (39.0-53.0); HGB 13.4 gm/dL (13.0-17.5); Lymphocytes # (A) 0.9 k/uL (1.0-4.8); Lymphocytes % (A) 12 %; MCH 30.3 pg (25.0-35.0); MCV 94.4 fL (80.0-100.0); Mean Platelet Volume 7.7; Monocytes # (A) 0.5 k/uL (0-1.0); Monocytes % (A) 7 %; Neutrophils # (A) 6.4 k/uL (1.3-7.7); Neutrophils % (A) 80 %; Platelet Count 255 k/uL (150-450); RBC 4.44 m/uL (4.30-5.90); RDW 14.3 % (11.5-15.5); WBC 8.1 k/uL (3.8-10.6)
[2018-07-15 21:32] LABS: ALT 261 U/L (21-72); AST 181 U/L (17-59); Albumin 4.3 g/dL (3.5-5.0); Anion Gap 11 mmol/L; Blood Urea Nitrogen 27 mg/dL (9-20); Calcium 10.3 mg/dL (8.4-10.2); Carbon Dioxide 26 mmol/L (22-30); Chloride 102 mmol/L (98-107); Glucose 124 mg/dL (74-99); Lipase 31 U/L (23-300); Sodium 139 mmol/L (137-145); Total Bilirubin 4.6 mg/dL (0.2-1.3); Total Protein 7.9 g/dL (6.3-8.2)
[2018-07-15 21:56] LABS: Alkaline Phosphatase 1514 U/L (38-126)
--- NOTE | 2018-07-15 21:59 | CT ---
EXAMINATION TYPE: CT abdomen pelvis w con DATE OF EXAM: 07/15/2018 COMPARISON: CT abdomen pelvis from 06/01/2018 HISTORY: Abdominal pain, history of liver carcinoma CT DLP: 333.1 mGycm Automated exposure control for dose reduction was used. TECHNIQUE: Helical acquisition of images was performed from the lung bases through the pelvis. Coron al and sagittal reformatted images were obtained CONTRAST: Patient injected with 100 cc of Isovue 300 FINDINGS: LUNG BASES: Interval development of a new probable subcentimeter noncalcified pulmonary nodules in th e partially visualized lung bases. LIVER/GB: The liver demonstrates interval enlargement of the central low attenuation mass within the hilar region now measuring up to 5.8 cm. The liver again demonstrates a lobular appearance. There is also interval development of left and right sided in intrahepatic biliary ductal dilatation likely se condary to mass effect from this central hepatic mass. The gallbladder is unremarkable. PANCREAS: No significant abnormality. SPLEEN: No significant abnormality. ADRENALS: Identification of the left adrenal gland is difficult secondary to extensive retroperitonea l adenopathy. The right adrenal glands unremarkable. KIDNEYS: No significant abnormality is seen. FREE AIR: None. RETROPERITONEAL ADENOPATHY: Extensive retroperitoneal adenopathy is again seen and appears worsened in the interval now becoming essentially conglomerate surrounding the aorta and IVC. Adenopathy now e ncases the renal vasculature and extends to approximately the iliac bifurcation.. REPRODUCTIVE ORGANS: No significant abnormality is seen URINARY BLADDER: No significant abnormality is seen. PELVIC ADENOPATHY: None visualized. OSSEOUS STRUCTURES: No significant abnormality. No suspicious osseous lesions. BOWEL: No significant abnormality. IMPRESSION: 1. Constellation of findings consistent with worsening metastatic disease when compared to study from 06/01/2018. 2. Interval development of subcentimeter pulmonary nodules. 3. Interval increase in size of hepatic lesion with development of mild intrahepatic biliary ductal d ilatation. 4. Increased retroperitoneal adenopathy.
[2018-07-15] MEDS ORDERED: HYDROmorphone 1 MG/ML 1 ML SYRINGE IVP STA (22:02)
[2018-07-15] MEDS ORDERED: SODIUM CHLORIDE 0.9% 1,000 ML IV ONE (22:36)
[2018-07-15] MEDS ORDERED: NALOXONE 0.4 MG/ML 1 ML VIAL IV PRN (22:37)
[2018-07-15] MEDS ORDERED: ONDANSETRON 4 MG/2 ML VIAL IVP PRN (22:37)
[2018-07-16] MEDS: oxyCODONE-APAP 5-325MG 1 EACH TAB PO PRN ×2 (00:34→10:53)
[2018-07-16] MEDS: HYDROmorphone 1 MG/ML 1 ML SYRINGE IVP PRN ×4 (01:04→11:58)
[2018-07-16] MEDS: SODIUM CHLORIDE 0.9% 1,000 ML IV SCH ×3 (01:04→18:45)
[2018-07-16 09:50] LABS: Basophils % (A) 0 %; Eosinophils # (A) 0.1 k/uL (0-0.7); Eosinophils % (A) 1 %; HCT 36.7 % (39.0-53.0); HGB 11.7 gm/dL (13.0-17.5); Lymphocytes # (A) 0.7 k/uL (1.0-4.8); Lymphocytes % (A) 10 %; MCH 30.3 pg (25.0-35.0); MCHC 31.8 g/dL (31.0-37.0); MCV 95.1 fL (80.0-100.0); Monocytes # (A) 0.5 k/uL (0-1.0); Monocytes % (A) 8 %; Neutrophils # (A) 5.1 k/uL (1.3-7.7); Neutrophils % (A) 79 %; Platelet Count 195 k/uL (150-450); RBC 3.86 m/uL (4.30-5.90); RDW 14.3 % (11.5-15.5); WBC 6.5 k/uL (3.8-10.6)
[2018-07-16 10:14] LABS: ALT 210 U/L (21-72); AST 148 U/L (17-59); Albumin 3.7 g/dL (3.5-5.0); Alkaline Phosphatase 1475 U/L (38-126); Anion Gap 8 mmol/L; Blood Urea Nitrogen 15 mg/dL (9-20); Carbon Dioxide 23 mmol/L (22-30); Chloride 106 mmol/L (98-107); Glucose 96 mg/dL (74-99); Magnesium 1.6 mg/dL (1.6-2.3); Potassium 3.4 mmol/L (3.5-5.1); Sodium 137 mmol/L (137-145); Total Bilirubin 5.3 mg/dL (0.2-1.3); Total Protein 6.9 g/dL (6.3-8.2)
[2018-07-16] MEDS ORDERED: SENNOSIDES-DOCUSATE SODIUM 1 EACH TAB PO PRN (12:15)
[2018-07-16] MEDS ORDERED: HYDROcodone/APAP 10-325MG 1 EACH TAB PO PRN (12:15)
[2018-07-16] MEDS ORDERED: LACTULOSE 20 GM/30 ML CUP PO PRN (12:15)
[2018-07-16] MEDS ORDERED: ALPRAZolam 0.25 MG TAB PO PRN (12:17)
[2018-07-16 13:08] LABS: INR 1.1 (<1.2); Prothrombin Time 11.7 sec (9.0-12.0)
--- NOTE | 2018-07-16 14:08 | P.CONS ---
History of Present Illness - Reason for Consult Consult date: 07/16/18 Metastatic squamous cell, unknown primary. Intractable pain from malignanc Requesting physician: Garett Miller - Chief Complaint Intractable abdominal pain - History of Present Illness Mr. Taylor is a very pleasant 63-year-old male initially seen in consult in February 2017 when he presented with progressive abdominal pain, unintentional weight loss of 50 pounds in one year. Imaging studies revealed widespread metastatic disease, especially involving the liver, positive for lung nodules. [place], pathology metastatic squamous cell cancer of unknown primary. Patient was treated locally by Dr. Schwartz, received carboplatin and Taxol till July 2017 with good symptom response and a partial radiological response. Patient continued on observation until May 2018. He presented again with increased abdominal pain around the navel and in the right upper quadrant. CT AP 06/01/18 showed progression of disease. Percutaneous retroperitoneal mass was core biopsied on 06/15, pathology revealed metastatic squamous cell with unknown primary. Plan was to start immunotherapy, approval process was delayed by the [place], currently in the process still pending. Patient pain management has been inadequate, [facility] and has a cap on doses, Fentanyl 25 g and [place] 10/325 3 Times A Day is maximum. As would be anticipated patient is admitted for pain management, his pain is secondary tocap o progressive malignancy. Patient had a CT on 07/15 that was compared to the 06/01 CT, new pulmonary nodules, increase in size of liver masses with ductal dilation, increase in the size of retroperitoneal adenopathy, this is now surrounding the aorta and IVC as well as encasing the renal vasculature. Patient has ceased his pain management with the [facility] so pain can be better monitored and controlled here locally. Patient describes pain as sharp, around the navel and into the right upper quadrant, co nstant, worse with movement and sitting up, improved when he lays on his right side, denies nausea or vomiting, has no appetite though, he states normal BM in the last 2 days. No fevers, difficulty breathing, chest pain, abdominal bloating, lower extremity swelling, bleeding. Review of Systems 14 point review of systems is negative except as stated in HPI Past Medical History Past Medical History: Cancer, COPD, Hyperlipidemia, Hypertension, Liver Disease, Osteoarthritis (OA) Additional Past Medical History / Comment(s): past abby wrist fx(no sx), past migraines. hx liver cancer 2018, was on chemo, abd. pain & new spot on liver per pt, alcoholism History of Any Multi-Drug Resistant Organisms: None Reported Past Surgical History: Hernia Repair Additional Past Surgical History / Comment(s): sx for "ruptured belly button" as infant. colonoscopy w/ polypectomy-benign, liver biopsy, port a cath Past Anesthesia/Blood Transfusion Reactions: No Reported Reaction Past Psychological History: Anxiety Smoking Status: Current every day smoker Past Alcohol Use History: None Reported Past Drug Use History: Marijuana - Past Family History Father Family Medical History: COPD Additional Family Medical History / Comment(s): Mother History Unknown: Yes Family Medical History: No Reported History Additional Family Medical History / Comment(s): still alive-healthy Medications and Allergies Home Medications Medication Instructions Recorded Confirmed Type Aspirin EC [Ecotrin Low Dose] 81 mg PO DAILY 04/19/15 07/15/18 History Pravastatin Sodium [Pravachol] 10 mg PO HS 04/19/15 07/15/18 History Tiotropium 18 Mcg/Puff [Spiriva] 1 cap INHALATION RT-DAILY PRN 02/28/17 07/15/18 History Topiramate [Topamax] 50 mg PO BID 02/28/17 07/15/18 History Sennosides/Docusate Sodium 1 tab PO DAILY PRN 07/06/18 07/15/18 History [Senna-S Laxative Tablet] Lactulose [Cephulac] 20 gm PO BID PRN #10 day 07/08/18 07/15/18 Rx Omeprazole [PriLOSEC] 40 mg PO AC-BRKFST #14 capsule. 07/08/18 07/15/18 Rx fentaNYL 50MCG/HR PATCH [Duragesic 1 patch TRANSDERM Q72H #3 patch 07/08/18 Rx 50MCG/HR] HYDROcodone/APAP 10-325MG [[place] 1 tab PO TID PRN 07/15/18 07/15/18 History 10-325] Allergies Allergy/AdvReac Type Severity Reaction Status Date / Time No Known Allergies Allergy Verified 07/15/18 23:07 Physical Exam Vitals: Vital Signs Temp Pulse Pulse Pulse Resp BP BP 05/20/19 12:18 98.1 F 87 17 181/91 07/16/18 05:16 98.2 F 87 18 153/84 07/16/18 01:00 97.4 F L 89 16 134/86 07/15/18 23:36 98 F 88 18 167/90 07/15/18 22:08 92 16 154/71 07/15/18 21:04 76 18 141/93 07/15/18 20:51 97.6 F 113 H 18 128/83 Pulse Ox 07/16/18 12:18 98 07/16/18 05:16 98 07/16/18 01:00 98 07/15/18 23:36 96 07/15/18 22:08 100 07/15/18 21:04 96 07/15/18 20:51 98 Intake and Output 07/15/18 07/16/18 07/16/18 22:59 06:59 14:59 Other: Voiding Method Urinal Urinal # Voids 1 Weight 88.2 kg Thin, cachectic, emaciated with muscle wasting. No acute distress, alert and oriented 4 - Constitutional General appearance: cooperative - EENT Eyes: EOMI, poor dentition, scleral icterus ENT: hearing grossly normal, normal oropharynx - Neck Neck: no lymphadenopathy - Respiratory Respiratory: bilateral: diminished - Cardiovascular Rhythm: regular Heart sounds: normal: S1, S2 Abnormal Heart Sounds: no systolic murmur, no diastolic murmur, no rub, no S3 Gallop, no S4 Gallop, no click, no other - Gastrointestinal Hepatomegaly 4-5 fingerbreadths below costal margin, palpation of the liver is hard, nodular/irregular General gastrointestinal: no absent bowel sounds, decreased bowel sounds, no distended, hepatomegaly, no hyperactive bowel sounds, no normal bowel sounds, no organomegaly, no rigid, scaphoid, no soft, no splenomegaly, tenderness, no umbilical hernia, no ventral hernia - Integumentary Bronze skin color - Neurologic Neurologic: CNII-XII intact - Musculoskeletal Musculoskeletal: generalized weakness - Psychiatric Psychiatric: A&O x's 3, appropriate affect, intact judgment & insight Results CBC & Chem 7: 07/16/18 09:17 07/16/18 09:17 Labs: Abnormal Lab Results - Last 24 Hours (Table) 05/19/19 05/19/19 05/20/19 Range/Units 21:12 21:12 09:17 RBC 3.86 L (4.30-5.90) m/uL Hgb 11.7 L (13.0-17.5) gm/dL Hct 36.7 L (39.0-53.0) % Lymphocytes # 0.9 L 0.7 L (1.0-4.8) k/uL Potassium (3.5-5.1) mmol/L BUN 27 H (9-20) mg/dL Creatinine (0.66-1.25) mg/dL Glucose 124 H (74-99) mg/dL Calcium 10.3 H (8.4-10.2) mg/dL Phosphorus (2.5-4.5) mg/dL Total Bilirubin 4.6 H (0.2-1.3) mg/dL AST 181 H (17-59) U/L ALT 261 H (21-72) U/L Alkaline Phosphatase 1514 H (38-126) U/L 07/16/18 Range/Units 09:17 RBC (4.30-5.90) m/uL Hgb (13.0-17.5) gm/dL Hct (39.0-53.0) % Lymphocytes # (1.0-4.8) k/uL Potassium 3.4 L (3.5-5.1) mmol/L BUN (9-20) mg/dL Creatinine 0.46 L (0.66-1.25) mg/dL Glucose (74-99) mg/dL Calcium (8.4-10.2) mg/dL Phosphorus 2.0 L (2.5-4.5) mg/dL Total Bilirubin 5.3 H (0.2-1.3) mg/dL AST 148 H (17-59) U/L ALT 210 H (21-72) U/L Alkaline Phosphatase 1475 H (38-126) U/L CT scan - abdomen: report reviewed CT scan - pelvis: report reviewed Assessment and Plan (1) Intractable abdominal pain Narrative/Plan: Pain medications will be adjusted and titrated for patient tolerance. [facility] We will perform maps, fill out the start talking form and he will sign a patient/provider contract in the office. Current Visit: Yes Status: Acute Priority: High Code(s): R10.9 - UNSPECIFIED ABDOMINAL PAIN SNOMED Code(s): 21324141 (2) Biliary obstruction Narrative/Plan: Consult to gastroenterology for evaluation and recommendations regarding biliary obstruction and relief of the same. Current Visit: Yes Status: Acute Priority: High Code(s): K83.1 - OBSTRUCTION OF BILE DUCT SNOMED Code(s): 890182806 (3) Jaundice Current Visit: Yes Status: Acute Priority: High Code(s): R17 - UNSPECIFIED JAUNDICE SNOMED Code(s): 55921444 (4) Metastasis of unknown primary Narrative/Plan: We discussed patient's recent computed tomography scan and the notable disease progression in all areas. He was prescribed immunotherapy recently, has had difficulties obtaining insurance [facility]. We have been working on free drug through the office. Patient requested an informational session from hospice. Patient did state to me he was unsure what treatment was going to do for him at this time. I explained to him that I am not able to say if treatment could help him at this time. Typically immunotherapy can take up to 6-9 weeks to have any meaningful impact/reduction of disease. I told patient he could think about things and I would meet with him again tomorrow to see how he feels about moving forward with treatment or if he would be more interested in pursuing comfort only.. Current Visit: Yes Status: Acute Priority: High Code(s): C79.9 - SECONDARY MALIGNANT NEOPLASM OF UNSPECIFIED SITE SNOMED Code(s): 769682113
[2018-07-16 14:53] LABS: Appearance,Urine Clear (Clear); Bilirubin,Urine Negative (Negative); Blood,Urine Negative (Negative); Color,Urine Yellow; Glucose,Urine (UA) Negative (Negative); Ketones,Urine Negative (Negative); Leukocyte Esterase,Urine Negative (Negative); Nitrite,Urine Negative (Negative); Protein,Urine Trace (Negative); Specific Gravity,Urine 1.016 (1.001-1.035)
[2018-07-16] MEDS: MORPHINE CONC SOLN 10mg/0.5mL ORAL SYRG PO PRN ×3 (15:09→20:49)
[2018-07-16 16:02] VITALS: BMI 14.1
[2018-07-16] MEDS: TOPIRAMATE 25 MG TAB PO SCH (20:16)
[2018-07-16] MEDS: HEPARIN SODIUM,PORCINE 5,000 UNIT/ML 1 ML VIAL SQ SCH (20:28)
[2018-07-16] MEDS ORDERED: PRAVASTATIN SODIUM 20 MG TAB PO SCH (21:00)
--- NOTE | 2018-07-16 21:41 | HP ---
HISTORY AND PHYSICAL DATE OF SERVICE: 07/16/2018 CHIEF COMPLAINT: Abdominal pain. HISTORY OF PRESENT ILLNESS: This 63-year-old gentleman with a past medical history of multiple medical problems including metastasis carcinoma unknown primary, was complaining of abdominal pain. Patient unable to keep anything down. The patient admitted to the hospital for further evaluation and treatment. Patient also evaluated by Hematology/Oncology, Dr. Schwartz. The patient given carboplatin and Taxol, but subsequently because of increasing abdominal distention, progression of disease was suspected and a recent biopsy of the mass was also noted and the pathology revealed metastatic squamous cell carcinoma, unknown primary. The MD is also involved in treatment at this time. Because of increasing pain, patient came to [facility] and admitted to the hospital for further evaluation and treatment. The patient had a CT scan recently which showed a definitely increase in size of the liver masses and as well as lung lesions and some lymphadenopathy as well. There is no history of fever, rigors or chills. No history of headache, loss of consciousness or seizures. The patient had prescribed immunotherapy recently with difficulty in obtaining it through the MD. PAST MEDICAL HISTORY: History of COPD, hypertension, hyperlipidemia, liver disease, squamous cell carcinoma, unknown primary, anxiety. MEDICATIONS: Prior to admission include home medications are: 1. Fentanyl patch 750 mcg q.72hours. 2. Topamax 50 mg t.i.d. 3. Spiriva 1 puff daily. 4. Senna S 1 tab daily p.r.n. 5. Pravachol 10 mg q.h.s. 6. Prilosec 40 mg for breakfast. 7. Cephulac 20 gm b.i.d. p.r.n. 8. [place] 10 mg t.i.d. p.r.n. 9. Ecotrin 81 mg. ALLERGIES: None. FAMILY HISTORY: History of COPD in the family. SOCIAL HISTORY: History of smoking, continued ongoing. No history of alcohol intake. REVIEW OF SYSTEMS: ENT: No diminished vision. No diminished hearing. CARDIOVASCULAR: No angina or palpitations. RESPIRATION: No cough. No hemoptysis. GI as mentioned earlier. : As mentioned earlier. CENTRAL NERVOUS SYSTEM: No numbness or weakness. ALLERGY/IMMUNOLOGY: No asthma or hayfever. MUSCULOSKELETAL: As mentioned earlier. HEMATOLOGY/ONCOLOGY: As mentioned earlier. ENDOCRINE: No history of diabetes or hypothyroidism. CONSTITUTIONAL: As mentioned earlier. DERMATOLOGY: Negative. RHEUMATOLOGY: Negative. PSYCHIATRIC: As mentioned. PHYSICAL EXAMINATION: GENERAL: The patient is alert and oriented x3. VITAL SIGNS: Pulse is 87, blood pressure is 180/90, respirations 17, temperature 98.1, pulse ox 98% on room air. HEENT: Oral mucosa dry. NECK: No jugular venous distention. No carotid bruit. No lymph node enlargement. CARDIOVASCULAR: S1, S2 muffled. RESPIRATORY: Breath sounds diminished in the bases. Scattered rhonchi and crackles. Expiratory wheezing also present. ABDOMEN: Soft, minimal diffuse distention present. Mild diffuse tenderness also present. No guarding or rigidity. No mass palpable. LEGS: No edema. No swelling. NERVOUS SYSTEM: Higher functions as mentioned earlier. Moves all 4 limbs. No focal motor or sensory deficits. LYMPHATICS: No lymph nodes palpable in the neck, axillae or groin. SKIN: No ulcer, rash or bleeding. JOINTS: No active deforming arthropathy. LABS: WBC 6.2, hemoglobin 11.7, sodium 137, potassium 3.4. Phosphorus 2, total bilirubin is 5.3, AST is 148 and ALT is 210, alkaline phosphatase of 1475. ASSESSMENT: 1. Abdominal pain possibly secondary to med status is from squamous cell carcinoma of unknown primary. 2. Increase in pulmonary and lung and liver lesions. 3. Hepatitis with obstructive jaundice, possibly increased bilirubin, AST, ALT and alkaline phosphatase. 4. Mild hypokalemia. 5. Anemia, normocytic anemia of malignancy. 6. History of hypertension. 7. Hyperlipidemia. 8. Chronic obstructive pulmonary disease. 9. History of degenerative joint disease. 10.History of migraines. 11.History of anxiety. 12.History of nicotine dependence. RECOMMENDATIONS AND DISCUSSION: In this 63-year-old gentleman who presented with multiple complex medical issues, we will monitor the patient closely. Continue the current medications, management and symptomatic treatment. We will optimize the pain management. Otherwise, recommend repeat labs. The patient will closely follow the patient with Hematology/Oncology regarding immunotherapy and other modalities of treatment. A CT scan of the abdomen and pelvis done in the ER which was reviewed personally by me showed worsening metastatic disease and interval development of the subcentimeter pulmonary nodules and increase in size with hepatic lesions. Overall prognosis remains extremely guarded, but however, we will continue to monitor. Symptomatic treatment will be given as mentioned earlier. Copy of dictation being forwarded to Dr. Mario who is the primary physician. MMODL / IJN: [id number] / ROSAURA
[2018-07-17] MEDS: KETOROLAC 30 MG/ML 1 ML VIAL IVP PRN ×4 (01:58→20:43)
[2018-07-17] MEDS: TEMAZEPAM 15 MG CAP PO PRN ×2 (02:01→20:43)
[2018-07-17] MEDS: SODIUM CHLORIDE 0.9% 1,000 ML IV SCH (03:55)
[2018-07-17] MEDS: IPRATROPIUM 0.5 MG/2.5 ML NEBU INHALATION SCH ×4 (07:44→19:32)
[2018-07-17] MEDS ORDERED: IPRATROPIUM 0.5 MG/2.5 ML NEBU INHALATION SCH (08:00)
[2018-07-17] MEDS: PANTOPRAZOLE 40 MG TABLET PO SCH (08:35)
[2018-07-17] MEDS: ASPIRIN 81 MG PO SCH (08:35)
[2018-07-17] MEDS: HEPARIN SODIUM,PORCINE 5,000 UNIT/ML 1 ML VIAL SQ SCH ×3 (08:36→20:22)
[2018-07-17] MEDS: TOPIRAMATE 25 MG TAB PO SCH ×2 (08:50→20:42)
[2018-07-17 09:00] LABS: Basophils % (A) 1 %; Eosinophils % (A) 1 %; HCT 38.3 % (39.0-53.0); HGB 12.4 gm/dL (13.0-17.5); Lymphocytes # (A) 0.8 k/uL (1.0-4.8); Lymphocytes % (A) 11 %; MCH 30.6 pg (25.0-35.0); MCHC 32.4 g/dL (31.0-37.0); MCV 94.5 fL (80.0-100.0); Mean Platelet Volume 7.5; Monocytes # (A) 0.5 k/uL (0-1.0); Monocytes % (A) 7 %; Neutrophils # (A) 6.1 k/uL (1.3-7.7); Neutrophils % (A) 80 %; Platelet Count 230 k/uL (150-450); RBC 4.05 m/uL (4.30-5.90); RDW 15.1 % (11.5-15.5); WBC 7.6 k/uL (3.8-10.6)
[2018-07-17 09:10] LABS: ALT 211 U/L (21-72); AST 171 U/L (17-59); Albumin 3.8 g/dL (3.5-5.0); Anion Gap 11 mmol/L; Blood Urea Nitrogen 11 mg/dL (9-20); Calcium 8.9 mg/dL (8.4-10.2); Carbon Dioxide 22 mmol/L (22-30); Chloride 102 mmol/L (98-107); Glucose 78 mg/dL (74-99); Potassium 3.4 mmol/L (3.5-5.1); Sodium 135 mmol/L (137-145); Total Bilirubin 7.9 mg/dL (0.2-1.3)
[2018-07-17 09:27] LABS: Alkaline Phosphatase 1346 U/L (38-126)
--- NOTE | 2018-07-17 10:23 | P.CONS ---
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 Consult requested for elevated liver enzymes and new onset of jaundice. Patient states his abdominal pain is worsening mostly around the mid abdominal periumbilical region. No fever chills hematemesis hematochezia or melena. Personally he has not noticed himself to look jaundice but reports darker colored urine. Computed tomography scan July 15 compared to computed tomography scan a month ago reported new pulmonary nodules, increased liver masses with intrahepatic ductal dilation as well as encasement of aorta IVC renal vasculature. Liver demonstrates interval and large amount of central low attenuation mass within the hilar region measuring up to 5.8 cm with a lobular appearance with new development of left and right-sided intrahepatic bili ductal dilatation likely secondary to mass effect from the central hepatic mass. Gallbladder unremarkable. Pancreas unremarkable. Total bilirubin 4.6-7.9. AST 148-181. ALT 210-261. AP 2641-0945. Lipase 31. INR 1.1. White count 7.6. Hemoglobin 12.4. Platelet 230. LFTs 10 days ago total bilirubin 1.0. AST 78. ALT 67. AP 769. Review of Systems Constitutional: Denies fever, chills, sweats, weight gain, or loss. New onset of jaundice. HEENT: Negative for migraines, blurred vision or loss, earaches, drainage, tinnitus, oral mucosal lesions, dysphagia, or odynophagia. Cardiac: Negative for chest pain, arrhythmias, or palpitation. Respiratory: Negative for shortness of breath, hemoptysis, cough, or sputum production. Gastrointestinal: See HPI for pertinent findings. Genitourinary: Negative for hematuria, urgency, frequency, polyuria, dysuria, or penile discharge. Musculoskeletal: Negative for muscle aches, swelling, arthritis, and arthralgias. Neurologic: Negative for stroke or TIA. Endocrine: Negative for thyroid problems. Skin: Negative for rash or itching. Psychiatric: Negative history for depression and anxiety Past Medical History Past Medical History: Cancer, COPD, Hyperlipidemia, Hypertension, Liver Disease, Osteoarthritis (OA) Additional Past Medical History / Comment(s): past abby wrist fx(no sx), past migraines. hx liver cancer 2018, was on chemo, abd. pain & new spot on liver per pt, alcoholism History of Any Multi-Drug Resistant Organisms: None Reported Past Surgical History: Hernia Repair Additional Past Surgical History / Comment(s): sx for "ruptured belly button" as infant. colonoscopy w/ polypectomy-benign, liver biopsy, port a cath Past Anesthesia/Blood Transfusion Reactions: No Reported Reaction Past Psychological History: Anxiety Smoking Status: Current every day smoker Past Alcohol Use History: None Reported Past Drug Use History: Marijuana - Past Family History Father Family Medical History: COPD Additional Family Medical History / Comment(s): Mother History Unknown: Yes Family Medical History: No Reported History Additional Family Medical History / Comment(s): still alive-healthy Medications and Allergies Home Medications Medication Instructions Recorded Confirmed Type Aspirin EC [Ecotrin Low Dose] 81 mg PO DAILY 04/19/15 07/15/18 History Pravastatin Sodium [Pravachol] 10 mg PO HS 04/19/15 07/15/18 History Tiotropium 18 Mcg/Puff [Spiriva] 1 cap INHALATION RT-DAILY PRN 02/28/17 07/15/18 History Topiramate [Topamax] 50 mg PO BID 02/28/17 07/15/18 History Sennosides/Docusate Sodium 1 tab PO DAILY PRN 07/06/18 07/15/18 History [Senna-S Laxative Tablet] Lactulose [Cephulac] 20 gm PO BID PRN #10 day 07/08/18 07/15/18 Rx Omeprazole [PriLOSEC] 40 mg PO AC-BRKFST #14 capsule. 07/08/18 07/15/18 Rx fentaNYL 50MCG/HR PATCH [Duragesic 1 patch TRANSDERM Q72H #3 patch 07/08/18 07/15/18 Rx 50MCG/HR] HYDROcodone/APAP 10-325MG [[place] 1 tab PO TID PRN 07/15/18 07/15/18 History 10-325] Allergies Allergy/AdvReac Type Severity Reaction Status Date / Time No Known Allergies Allergy Verified 07/15/18 23:07 Physical Exam Vitals: Vital Signs Temp Pulse Resp BP Pulse Ox 07/17/18 04:32 98.3 F 91 18 145/81 99 07/16/18 23:50 18 07/16/18 21:00 98.1 F 86 18 171/87 97 07/16/18 12:18 98.1 F 87 17 181/91 98 Intake and Output 07/16/18 07/17/18 07/17/18 22:59 06:59 14:59 Intake Total 760 860 Balance 760 860 Intake: Intake, IV Titration 400 800 Amount Sodium Chloride 0.9% 1, 400 800 000 ml @ 100 mls/hr IV . Q10H [facility] Rx#:[id number] Oral 360 60 Other: Voiding Method Urinal # Voids 1 Weight 41.957 kg General appearance: The patient is alert, oriented, in no acute distress. Jaundice. HET: Head is normocephalic and atraumatic. Pupils are equal and reactive. Oropharynx is clear without lesions. Sclerae icterus. Neck: Supple without lymphadenopathy. Trachea midline. Heart: S1 S2. Regular rate and rhythm. Lungs: No crackles or wheezes are heard. Abdomen: Soft, mild diffuse tenderness across the midabdomen with bowel sounds. Hepatomegaly present. Extremities: Normal skin color and turgor. No cyanosis, rash, ulceration, clubbing, or edema. Radial and pedal pulses are 2/4 bilaterally. Neurological: No focal deficits. Strength and sensation are grossly intact. Results CBC & Chem 7: 07/17/18 08:24 07/17/18 08:24 Labs: Abnormal Lab Results - Last 24 Hours (Table) 07/16/18 07/16/18 07/17/18 Range/Units 09:17 12:16 08:24 RBC 4.05 L (4.30-5.90) m/uL Hgb 12.4 L (13.0-17.5) gm/dL Hct 38.3 L (39.0-53.0) % Lymphocytes # 0.8 L (1.0-4.8) k/uL Sodium (137-145) mmol/L Potassium 3.4 L (3.5-5.1) mmol/L Creatinine 0.46 L (0.66-1.25) mg/dL Phosphorus 2.0 L (2.5-4.5) mg/dL Total Bilirubin 5.3 H (0.2-1.3) mg/dL AST 148 H (17-59) U/L ALT 210 H (21-72) U/L Alkaline Phosphatase 1475 H (38-126) U/L Urine Protein Trace H (Negative) 07/17/18 Range/Units 08:24 RBC (4.30-5.90) m/uL Hgb (13.0-17.5) gm/dL Hct (39.0-53.0) % Lymphocytes # (1.0-4.8) k/uL Sodium 135 L (137-145) mmol/L Potassium 3.4 L (3.5-5.1) mmol/L Creatinine 0.47 L (0.66-1.25) mg/dL Phosphorus (2.5-4.5) mg/dL Total Bilirubin 7.9 H (0.2-1.3) mg/dL AST 171 H (17-59) U/L ALT 211 H (21-72) U/L Alkaline Phosphatase 1346 H (38-126) U/L Urine Protein (Negative) CT scan - abdomen: report reviewed (Dr. Polk) Assessment and Plan (1) Obstructive jaundice Narrative/Plan: 63-year-old male with a history of widely metastatic squamous cell carcinoma of unknown primary with new development of jaundice elevated liver enzymes consistent with acute biliary obstruction without features of cholangitis. CT abdomen and pelvis reports progression of disease with enlarging hilar mass intrahepatic biliary ductal dilatation and encasement of vasculature. Current Visit: Yes Status: Acute Code(s): K83.1 - OBSTRUCTION OF BILE DUCT SNOMED Code(s): 96017036 (2) Metastasis of unknown primary Current Visit: Yes Status: Acute Priority: High Code(s): C79.9 - SECONDARY MALIGNANT NEOPLASM OF UNSPECIFIED SITE SNOMED Code(s): 016008282 Plan: 1. Computed tomography scan abdomen and pelvis was reviewed with radiologist Dr. Gao considering location of tumor burden within the liver and biliary ducts would be challenging to proceed with ERCP stent placement. PTC was discussed secondary to evidence of intrahepatic biliary ductal dilatation, PTC could be attempted but successful placement of catheter cannot be guaranteed. Overall clinical course is guarded. Patient was given the option of ERCP versus PTC attempt at this time he is declining until he speaks with his oncology team. Continue with symptomatic supportive measures. Patient is considering hospice options. Thank you for this kind referral and the opportunity to participate in the care of your patient. This consultation was discussed with Dr. Polk. The impression and plan of care have been directed as dictated.
[2018-07-17] MEDS ORDERED: Potassium Replacement Protocol 1 EACH MISC MISCELLANE PRN (11:46)
--- NOTE | 2018-07-17 13:11 | P.PN ---
Subjective Progress Note Date: 07/17/18 Principal diagnosis: Progressive squamous cell carcinoma of unknown primary. Intractable pain from malignancy. When seen today patient states difficulties tolerating the Roxanol, it makes him "gag". He said it worked okay for about 45 minutes but, that was all. The pain is still in the right upper quadrant and abdominal area, patient is very weak, mostly laying on the right side for comfort. Objective - Vital Signs Vital signs: Vital Signs Temp 98.5 F 07/17/18 12:42 Pulse 93 07/17/18 12:42 Resp 16 07/17/18 12:42 BP 147/85 07/17/18 12:42 Pulse Ox 98 07/17/18 12:42 Intake & Output 07/16/18 07/17/18 07/17/18 18:59 06:59 18:59 Intake Total 250 1620 Balance 250 1620 Weight 41.957 kg Intake: Intake, IV Titration 1200 Amount Sodium Chloride 0.9% 1, 1200 000 ml @ 100 mls/hr IV . Q10H [facility] Rx#:[id number] Oral 250 420 Other: Voiding Method Urinal Urinal Urinal # Voids 2 1 - Exam Thin, frail, male laying in bed on his right side, moderate weakness, scleral jaundice noted, patient is alert and oriented 4 during our discussion, respirations even and unlabored, no acute distress, bowel sounds are positive, no lower extremity swelling. - Labs CBC & Chem 7: 07/17/18 08:24 07/17/18 08:24 Labs: Abnormal Lab Results - Last 24 Hours (Table) 07/16/18 07/17/18 07/17/18 Range/Units 12:16 08:24 08:24 RBC 4.05 L (4.30-5.90) m/uL Hgb 12.4 L (13.0-17.5) gm/dL Hct 38.3 L (39.0-53.0) % Lymphocytes # 0.8 L (1.0-4.8) k/uL Sodium 135 L (137-145) mmol/L Potassium 3.4 L (3.5-5.1) mmol/L Creatinine 0.47 L (0.66-1.25) mg/dL Total Bilirubin 7.9 H (0.2-1.3) mg/dL AST 171 H (17-59) U/L ALT 211 H (21-72) U/L Alkaline Phosphatase 1346 H (38-126) U/L Urine Protein Trace H (Negative) Assessment and Plan (1) Intractable abdominal pain Narrative/Plan: Pain medications changed today. Have exchanged immediate release morphine for the Roxanol. Continue with the 50 g fentanyl patch. Medications ordered scheduled for prevention of narcotic-induced constipation. Current Visit: Yes Status: Acute Priority: High Code(s): R10.9 - UNSPECIFIED ABDOMINAL PAIN SNOMED Code(s): 86533047 (2) Biliary obstruction Narrative/Plan: Gastroenterology consult appreciated. Did speak with GI [facility]. After review of the image studies there does not appear to be an effective approach for stenting or for percutaneous drainage. I did discuss this with the patient. He does understand the significance of this as it pertains to prognosis and treatment. We reviewed concern for immunotherapy treatment. Immunotherapy can take several cycles before it has a clinically significant impact on disease. Patient is more in a visceral crisis at this time. I cannot say how much longer the patient's liver can sustain hemostasis. LFTs are progressively worsening. I will review the case with his primary oncologist to see if there are any potential options but, unfortunately I'm not aware of any. Patient and I will meet tomorrow, discuss options and make some decisions. Current Visit: Yes Status: Acute Priority: High Code(s): K83.1 - OBSTRUCTION OF BILE DUCT SNOMED Code(s): 991150019 (3) Jaundice Narrative/Plan: Progressive malignancy causing obstruction leading to jaundice. Appreciate Gastroenterology review of the case and recommendations. Current Visit: Yes Status: Acute Priority: High Code(s): R17 - UNSPECIFIED JAUNDICE SNOMED Code(s): 58551053 (4) Metastasis of unknown primary Current Visit: Yes Status: Acute Priority: High Code(s): C79.9 - SECONDARY MALIGNANT NEOPLASM OF UNSPECIFIED SITE SNOMED Code(s): 884764299
[2018-07-17] MEDS: SENNOSIDES-DOCUSATE SODIUM 1 EACH TAB PO SCH ×2 (13:29→20:42)
--- NOTE | 2018-07-17 13:44 | US ---
EXAMINATION TYPE: US liver DATE OF EXAM: 07/17/2018 COMPARISON: CT dated 07/15/2018 CLINICAL HISTORY: biliary obstruction; metastatic liver CA; assess for biliary obstruction EXAM MEASUREMENTS: Liver Length: 14.8 cm Gallbladder Wall: 0.3 cm CBD: 0.4 cm Right Kidney: 11.4 x 5.3 x 4.3 cm Pancreas: no masses seen Liver: heterogeneous throughout liver, nodular borders, couple of hyperechoic masses seen with large r mass right lobe = 6.0 x 4.4 x 4.7cm, mild intrahepatic ductal dilation. Gallbladder: thickened wall, shadowing stone(s) in neck Evidence for sonographic Castañeda's sign: back pain with supine position per patient CBD: wnl Right Kidney: No hydronephrosis; small amount of ascites inferior right kidney Small right pleural effusion and paraaortic lymph nodes noted. Minimal ascites is present. IMPRESSION: Metastatic disease. Cholelithiasis. Thickened gallbladder wall, correlate to exclude chol ecystitis.
[2018-07-17] MEDS: 0.9% NACL WITH KCL 40 MEQ/L 1,000 ML IV SCH (13:48)
--- NOTE | 2018-07-17 14:06 | PN ---
PROGRESS NOTE DATE OF SERVICE: 07/17/2018 This is a 63-year-old gentleman who was admitted with abdominal pain, also with features of multiple metastases. The patient also had liver lesions and possibly features of subsequent jaundice. [facility] Slag has been consulted. Hematology- Oncology is also [facility] to [facility] the new immunotherapy medications also. The liver ultrasound has been sought. PAST MEDICAL HISTORY: Reviewed. REVIEW OF SYSTEMS: CARDIOVASCULAR: S1, S2. RESPIRATORY: As mentioned earlier. GI: As mentioned earlier. : As mentioned earlier. NERVOUS SYSTEM: No focal deficits. CURRENT MEDICATIONS: Reviewed include: 1. Xanax 0.5 t.i.d. 2. Aspirin 81 mg daily. 3. Duragesic patch. 4. Heparin 5 subcu b.i.d. 5. Toradol 15 mg q.6. 6. Cephulac. 7. Sulfa. 8. Narcan. 9. Zofran. 10.Protonix. 11.Senokot-S. 12.Restoril. 13.Topamax. PHYSICAL EXAM: Patient is alert and orient x3. Pulse 91, blood pressure 140/80, respiration 18 temperature 98.2, pulse ox 98% on room air. HEENT: Conjunctivae normal. Oral mucosa moist. NECK: No jugular venous distention. No lymph node enlargement. CARDIOVASCULAR: S1, S2. No S3. RESPIRATORY: Breath sounds diminished at the bases, a few scattered rhonchi. No crackles. ABDOMEN: Soft, mild diffuse discomfort on palpation. Hepatomegaly present, otherwise, no other masses. No ascites. No guarding. No rigidity. LEGS: No edema. No swelling. NERVOUS SYSTEM: Higher functions as mentioned earlier, moves all 4 limbs. No focal lymphatics. SKIN: No ulcer, rash or bleeding. JOINTS: No active arthropathy. LABS: WBC is 7.2, hemoglobin is 12.2, sodium 130, potassium 3.4. Total bilirubin is 7.9 and AST is 171, ALT is 211 and alk phos is 13.46. UA noted. ASSESSMENT: 1. Abdominal pain, possibly secondary to metastatic lesions from squamous cell carcinoma from unknown primary. 2. Increased pulmonary and renal and liver metastatic lesions in the most recent CT scan. 3. Possible obstructive jaundice with increased bilirubin, AST, ALT, alkaline phosphatase, possibly secondary to metastasis. 4. Mild hypokalemia. 5. Anemia, normocytic anemia of malignancy. 6. History of depression. 7. Hyperlipidemia. 8. Chronic obstructive pulmonary disease. 9. History of degenerative joint disease. 10.History of migraines. 11.History of anxiety. 12.History of nicotine dependence. RECOMMENDATION: At this time I would recommend to continue monitoring and symptomatic treatment. Otherwise, at this time I would recommend add potassium to the IV fluids. Cut down the IV fluids to 75 mL/hour and p.o. fluids and food. Otherwise, I would also continue the pain medication. The pain is slightly better. Closely follow with Gastroenterology regarding the further plans regarding the obstructive jaundice. The bilirubin is still elevated. I would recommend an ultrasound of the liver also at this time to evaluate for the intrahepatic biliary tree. Other than that, repeat labs will be ordered and followed closely. Prognosis extremely guarded because of multiple complex medical issues. Further recommendations to follow. . YESICA / GEORGINA: [id number] /
[2018-07-17] MEDS: MORPHINE SULFATE IR 15 MG TABLET PO PRN (20:42)
[2018-07-18] MEDS: MORPHINE SULFATE IR 15 MG TABLET PO PRN ×5 (02:20→21:26)
[2018-07-18] MEDS: 0.9% NACL WITH KCL 40 MEQ/L 1,000 ML IV SCH ×2 (02:21→16:19)
[2018-07-18] MEDS: IPRATROPIUM 0.5 MG/2.5 ML NEBU INHALATION SCH ×4 (07:21→19:53)
[2018-07-18 08:02] LABS: ALT 306 U/L (21-72); AST 356 U/L (17-59); Albumin 3.3 g/dL (3.5-5.0); Anion Gap 9 mmol/L; Blood Urea Nitrogen 16 mg/dL (9-20); Calcium 8.9 mg/dL (8.4-10.2); Carbon Dioxide 20 mmol/L (22-30); Chloride 107 mmol/L (98-107); Glucose 71 mg/dL (74-99); Potassium 3.6 mmol/L (3.5-5.1); Sodium 136 mmol/L (137-145); Total Bilirubin 9.2 mg/dL (0.2-1.3); Total Protein 6.4 g/dL (6.3-8.2)
[2018-07-18 08:11] LABS: Basophils % (A) 1 %; Eosinophils % (A) 1 %; HCT 35.7 % (39.0-53.0); HGB 11.8 gm/dL (13.0-17.5); Lymphocytes # (A) 0.8 k/uL (1.0-4.8); Lymphocytes % (A) 15 %; MCH 31.3 pg (25.0-35.0); MCHC 32.9 g/dL (31.0-37.0); MCV 95.1 fL (80.0-100.0); Monocytes # (A) 0.4 k/uL (0-1.0); Monocytes % (A) 8 %; Neutrophils % (A) 75 %; Platelet Count 202 k/uL (150-450); RBC 3.76 m/uL (4.30-5.90); RDW 14.9 % (11.5-15.5); WBC 5.4 k/uL (3.8-10.6)
[2018-07-18 08:12] LABS: Alkaline Phosphatase 1526 U/L (38-126)
[2018-07-18] MEDS: HEPARIN SODIUM,PORCINE 5,000 UNIT/ML 1 ML VIAL SQ SCH ×2 (08:53→21:18)
[2018-07-18] MEDS: KETOROLAC 30 MG/ML 1 ML VIAL IVP PRN ×3 (08:54→21:27)
[2018-07-18] MEDS: ASPIRIN 81 MG PO SCH (08:54)
[2018-07-18] MEDS: SENNOSIDES-DOCUSATE SODIUM 1 EACH TAB PO SCH ×2 (08:54→21:25)
[2018-07-18] MEDS: PANTOPRAZOLE 40 MG TABLET PO SCH (08:55)
[2018-07-18] MEDS: TOPIRAMATE 25 MG TAB PO SCH ×2 (08:55→21:26)
--- NOTE | 2018-07-18 14:01 | P.PN ---
Subjective Progress Note Date: 07/18/18 Principal diagnosis: Jaundice Patient fell today did not hit his head fell on his buttocks. LFTs worsening total bilirubin 9.2. AST 356. ALT 306. Alkaline phosphates 1526. Afebrile. Chronic abdominal pain. Objective - Vital Signs Vital signs: Vital Signs Temp 97.1 F L 07/18/18 11:24 Pulse 91 07/18/18 11:24 Resp 18 07/18/18 11:24 BP 141/78 07/18/18 11:24 Pulse Ox 98 07/18/18 11:24 Intake & Output 07/17/18 07/18/18 07/18/18 18:59 06:59 18:59 Intake Total 800 1140 Balance 800 1140 Weight 41.957 kg Intake: Intake, IV Titration 800 900 Amount 0.9% NaCl with KCl 40 Meq 900 /l 1,000 ml @ 75 mls/hr IV .[id number] [facility] Rx#: [id number] Sodium Chloride 0.9% 1, 800 000 ml @ 100 mls/hr IV . Q10H [facility] Rx#:[id number] Oral 240 Other: Voiding Method Toilet Toilet Urinal Urinal # Voids 3 1 - Exam General appearance: The patient is alert, oriented, in no acute distress. Jaundice. Cachectic. HET: Head is normocephalic and atraumatic. Pupils are equal and reactive. Oropharynx is clear without lesions. Sclerae icterus. Neck: Supple without lymphadenopathy. Trachea midline. Heart: S1 S2. Regular rate and rhythm. Lungs: No crackles or wheezes are heard. Abdomen: Soft, tender across upper abdomen, nondistended with bowel sounds. No peritoneal signs. Extremities: Normal skin color and turgor. No cyanosis, rash, ulceration, clubb ing, or edema. Radial and pedal pulses are 2/4 bilaterally. Neurological: No focal deficits. Strength and sensation are grossly intact. - Labs CBC & Chem 7: 07/18/18 07:23 07/18/18 07:23 Labs: Abnormal Lab Results - Last 24 Hours (Table) 07/18/18 07/18/18 Range/Units 07:23 07:23 RBC 3.76 L (4.30-5.90) m/uL Hgb 11.8 L (13.0-17.5) gm/dL Hct 35.7 L (39.0-53.0) % Lymphocytes # 0.8 L (1.0-4.8) k/uL Sodium 136 L (137-145) mmol/L Carbon Dioxide 20 L (22-30) mmol/L Creatinine 0.52 L (0.66-1.25) mg/dL Glucose 71 L (74-99) mg/dL Total Bilirubin 9.2 H (0.2-1.3) mg/dL AST 356 H (17-59) U/L ALT 306 H (21-72) U/L Alkaline Phosphatase 1526 H (38-126) U/L Albumin 3.3 L (3.5-5.0) g/dL Assessment and Plan (1) Obstructive jaundice Narrative/Plan: 63-year-old male with a history of widely metastatic squamous cell carcinoma of unknown primary with new development of jaundice with worsening liver enzymes consistent with acute biliary obstruction without features of cholangitis. CT abdomen and pelvis reports progression of disease with enlarging hilar mass intrahepatic biliary ductal dilatation and encasement of vasculature. Current Visit: Yes Status: Acute Code(s): K83.1 - OBSTRUCTION OF BILE DUCT SNOMED Code(s): 55624899 (2) Metastasis of unknown primary Current Visit: Yes Status: Acute Priority: High Code(s): C79.9 - SECONDARY MALIGNANT NEOPLASM OF UNSPECIFIED SITE SNOMED Code(s): 928083798 Plan: 1. Continue with symptomatic supportive measures. Overall prognosis is poor. Patient verbalized he doesn't have many options and is waiting to discuss treatment plan with oncology today. Assessment and plan a care discussed with Dr. Polk
--- NOTE | 2018-07-18 14:41 | P.PN ---
Subjective Progress Note Date: 07/18/18 Principal diagnosis: Progressive squamous cell carcinoma of unknown primary. Intractable pain from malignancy. In follow-up today patient is still very weak, pain is persistent, he has most discomfort from laying on his right side, no fever, vomiting Objective - Vital Signs Vital signs: Vital Signs Temp 97.1 F L 07/18/18 11:24 Pulse 91 07/18/18 11:24 Resp 18 07/18/18 11:24 BP 141/78 07/18/18 11:24 Pulse Ox 98 07/18/18 11:24 Intake & Output 07/17/18 07/18/18 07/18/18 18:59 06:59 18:59 Intake Total 800 1140 Balance 800 1140 Weight 41.957 kg Intake: Intake, IV Titration 800 900 Amount 0.9% NaCl with KCl 40 Meq 900 /l 1,000 ml @ 75 mls/hr IV .[id number] [facility] Rx#: [id number] Sodium Chloride 0.9% 1, 800 000 ml @ 100 mls/hr IV . Q10H [facility] Rx#:[id number] Oral 240 Other: Voiding Method Toilet Toilet Toilet Urinal Urinal Urinal # Voids 3 1 - Exam Thin, frail, muscle wasting, laying in bed on right side, moderate weakness, scleral icterus noted, patient is alert and oriented 4 during our discussion, respirations even and unlabored, no acute distress, bowel sounds are positive, no lower extremity swelling. - Labs CBC & Chem 7: 07/18/18 07:23 07/18/18 07:23 Labs: Abnormal Lab Results - Last 24 Hours (Table) 07/18/18 07/18/18 Range/Units 07:23 07:23 RBC 3.76 L (4.30-5.90) m/uL Hgb 11.8 L (13.0-17.5) gm/dL Hct 35.7 L (39.0-53.0) % Lymphocytes # 0.8 L (1.0-4.8) k/uL Sodium 136 L (137-145) mmol/L Carbon Dioxide 20 L (22-30) mmol/L Creatinine 0.52 L (0.66-1.25) mg/dL Glucose 71 L (74-99) mg/dL Total Bilirubin 9.2 H (0.2-1.3) mg/dL AST 356 H (17-59) U/L ALT 306 H (21-72) U/L Alkaline Phosphatase 1526 H (38-126) U/L Albumin 3.3 L (3.5-5.0) g/dL Assessment and Plan (1) Intractable abdominal pain Narrative/Plan: Pain medications have some degree of control over patient's pain at this time. Current Visit: Yes Status: Acute Priority: High Code(s): R10.9 - UNSPECIFIED ABDOMINAL PAIN SNOMED Code(s): 51171034 (2) Biliary obstruction Narrative/Plan: Per GI, no effective approach for stenting or for percutaneous drainage. Current Visit: Yes Status: Acute Priority: High Code(s): K83.1 - OBSTRUCTION OF BILE DUCT SNOMED Code(s): 627320516 (3) Jaundice Narrative/Plan: Progressive malignancy causing obstruction leading to jaundice. Unfortunately, disease too extensive, stenting or PCT no viable options Current Visit: Yes Status: Acute Priority: High Code(s): R17 - UNSPECIFIED JAUNDICE SNOMED Code(s): 64465532 (4) Metastasis of unknown primary Narrative/Plan: We discussed patient's recent computed tomography scan and the notable disease progression in all areas. We reviewed immunotherapy slower mechanism of action and typically it requires several cycles (2 months) before it can have a clinically significant impact on disease. Patient is in visceral crisis. I cannot say how much longer the patient's liver can sustain hemostasis, LFTs continue to worsening. I reviewed the case with Dr. Schwartz. Immunotherapy unfortunately is not a reasonable option. There is a single agent chemotherapy that could be tried but, risks versus benefits and extremely low likelihood of any meaningful impact on the disease did not make this a reasonable option. After discussing the above we reviewed patient's viable options for treatment. Recommendation is for palliative care or hospice. Patient currently is interested in palliative care at home, stating he feels he has enough support fr om friends and family. I voiced my concerns that having someone in the home 2 or 3 times a week would not be adequate. Concerns for patient being able to prepare any meals. Concerns for patient's safety during any prolonged periods of being left alone. I spoke with case management. Recommendation is for the individuals who are going to be involved in patient's care at home to be present for the palliative care discussion and that they can clearly understand the roles and can tell patient what they are able to do what they are not able to do. It is strongly felt the patient needs alf, around the clock. His type of care would better meet his needs, and sure safety, meals and rapid treatment of symptoms. Case management will set up a meeting and we will proceed from there. Patient and I discussed CODE STATUS. I explained to patient chest compressions, intubation and reasoning for the same being that the cause of cardiopulmonary arrest can be reversed. We discussed that cardiopulmonary arrest in his situation would likely be a direct or indirect result malignancy. His malignancy is not being treated and is not going to be reversed. Patient understands and agreed to a no CODE STATUS. He understands that all of his symptoms will will be treated will be kept comfortable if he were to experience cardiopulmonary arrest. Await outcome of family/friends/palliative care meeting Current Visit: Yes Status: Acute Priority: High Code(s): C79.9 - SECONDARY MALIGNANT NEOPLASM OF UNSPECIFIED SITE SNOMED Code(s): 732737368
--- NOTE | 2018-07-18 15:54 | CDI ---
Documentation Clarification Form Date: 07/18/2018 CDS: Carissa Sandoval, CCS, CCDS Admit Date: 07/15/2018 Patient Name: Yousif Taylor Discharge Date: ATTENTION: The Clinical Documentation Specialists (CDI) and [facility] Coding Staff appreciate your assistance in clarifying documentation. Please respond to the clarification below the line at the bottom and electronically sign. The CDI & [facility] Coding staff will review the response and follow-up if needed. Please note: Queries are made part of the Legal Health Record. If you have any questions, please contact the author of this message via ITS. Dear Dr. Stark: Per the ED note & the Oncology Consult, the patient has no appetite & appears ill & cachetic with 50 lb weight loss in past year. 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 COPD, Hypertension, Hyperlipidemia, Hepatitis & Anxiety & Depression. Alcoholism. Current smoker. Clinical Indicators: Presented with intractable abdominal pain, per oncology, due to metastatic disease. Labs: BUN 27^, Glucose 124^, Calcium 10.3^, Total Bilirubin 4.6^, AST 181^, ALT 261^, Alk Phos 1514. Total Protein 7.9 - 6.4; Albumin 4.3 - 3.3*. Current BMI: 14.1* Nutritional Assessment: Dehydration, metastatic liver CA, biliary obstruction, intractable abdominal pain, alcoholism. Poor intake, 0-25% consumed. Emaciated, underweight. Malnutrition: severe PCM in chronic illness. Severe muscle mass wasting, depressed temporal area, protruding clavicles & subcutaneous fat loss w/depressed orbital area. Ht 5 ft 8 in. Wt: 41.957 kg Consults: GI, Oncology, Home Health: possible palliative care. Treatment: Antiemetics, PPI, Stool softner, IV fluid rate 100. Nutrition supplement: ensure Compact TID, Magic Cups BID. In your professional opinion, can you please clarify if these findings signify one of the following conditions? Mild Protein-Calorie Malnutrition Moderate Protein-Calorie Malnutrition Severe Protein-Calorie Malnutrition Other condition, please specify Unable to determine (Last Revision: May 2017) Severe Protein-Calorie Malnutrition MTDD
--- NOTE | 2018-07-18 20:40 | PN ---
PROGRESS NOTE DATE OF SERVICE: 07/18/2018 This 63-year-old gentleman admitted with abdominal pain has metastatic malignancy. Multiple consultants are following the patient closely. The patient's overall prognosis is extremely poor, per Hematology/Oncology. The patient had significant biliary obstruction, also. On exam, alert and oriented x3. Pulse 91, blood pressure 141/70, respiration 18, temperature 97.1, pulse ox 98% on room air. HEENT: Conjunctivae icteric. NECK: No jugular venous distention. CARDIOVASCULAR SYSTEM: S1, S2 muffled. RESPIRATORY SYSTEM: Breath sounds diminished at the bases. A few scattered rhonchi and crackles. ABDOMEN: Soft. Mild diffuse swelling palpable. LEGS: No edema. No swelling. NERVOUS SYSTEM: No focal deficit. LABS: WBC 5.4, hemoglobin 11.8. Sodium 136. Bilirubin is 9.2, AST is 356 and ALT is 306, alkaline phosphatase 1526, which is worsening. ASSESSMENT: 1. 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 2. Increased pulmonary and liver metastatic lesions on the most recent CT scan. 3. Possible obstructive jaundice with increased bilirubin, AST, ALT, alkaline phosphatase, possibly secondary to metastasis. 4. Mild hypokalemia. 5. Anemia; normocytic anemia of malignancy. 6. History of depression. 7. Hyperlipidemia. 8. Chronic obstructive pulmonary disease. 9. History of degenerative joint disease. 10.History of migraine. 11.History of anxiety. 12.History of nicotine dependence. RECOMMENDATIONS AND DISCUSSION: I recommend to continue current medications, continue with the monitoring, symptomatic treatment. Otherwise at this time I would recommend continuing the pain medication. Discussed with Hematology/Oncology, and we will discuss again with the patient regarding further measures, including palliative care or hospice measures because of the extreme nature of the progression of the illness. Once again, the prognosis is guarded. Further recommendations to follow. MMODL / IJN: [id number] /
[2018-07-18] MEDS: TEMAZEPAM 15 MG CAP PO PRN (21:26)
[2018-07-18 21:47] VITALS: RESP 16
[2018-07-19] MEDS: MORPHINE SULFATE IR 15 MG TABLET PO PRN ×7 (00:45→21:23)
[2018-07-19] MEDS: 0.9% NACL WITH KCL 40 MEQ/L 1,000 ML IV SCH ×2 (03:19→16:49)
[2018-07-19] MEDS: KETOROLAC 30 MG/ML 1 ML VIAL IVP PRN ×3 (03:20→18:31)
[2018-07-19] MEDS: ASPIRIN 81 MG PO SCH (08:35)
[2018-07-19] MEDS: SENNOSIDES-DOCUSATE SODIUM 1 EACH TAB PO SCH ×2 (08:35→21:22)
[2018-07-19] MEDS: PANTOPRAZOLE 40 MG TABLET PO SCH (08:35)
[2018-07-19] MEDS: HEPARIN SODIUM,PORCINE 5,000 UNIT/ML 1 ML VIAL SQ SCH ×3 (08:36→21:12)
[2018-07-19] MEDS: TOPIRAMATE 25 MG TAB PO SCH ×2 (08:37→21:22)
[2018-07-19] MEDS: IPRATROPIUM 0.5 MG/2.5 ML NEBU INHALATION SCH ×4 (09:23→19:55)
[2018-07-19 10:05] LABS: Basophils % (A) 1 %; Eosinophils # (A) 0.1 k/uL (0-0.7); Eosinophils % (A) 2 %; HCT 33.9 % (39.0-53.0); HGB 10.5 gm/dL (13.0-17.5); Lymphocytes # (A) 0.7 k/uL (1.0-4.8); Lymphocytes % (A) 11 %; MCH 30.1 pg (25.0-35.0); Mean Platelet Volume 7.2; Monocytes # (A) 0.5 k/uL (0-1.0); Monocytes % (A) 7 %; Neutrophils # (A) 4.9 k/uL (1.3-7.7); Neutrophils % (A) 79 %; Platelet Count 190 k/uL (150-450); RBC 3.49 m/uL (4.30-5.90); RDW 14.9 % (11.5-15.5); WBC 6.3 k/uL (3.8-10.6)
[2018-07-19 10:22] LABS: ALT 308 U/L (21-72); AST 289 U/L (17-59); Albumin 3.1 g/dL (3.5-5.0); Anion Gap 5 mmol/L; Blood Urea Nitrogen 12 mg/dL (9-20); Calcium 8.7 mg/dL (8.4-10.2); Carbon Dioxide 22 mmol/L (22-30); Chloride 110 mmol/L (98-107); Glucose 81 mg/dL (74-99); Potassium 4.5 mmol/L (3.5-5.1); Sodium 137 mmol/L (137-145); Total Bilirubin 9.8 mg/dL (0.2-1.3); Total Protein 6.1 g/dL (6.3-8.2)
[2018-07-19 10:57] LABS: Alkaline Phosphatase 1429 U/L (38-126)
--- NOTE | 2018-07-19 12:32 | P.PN ---
Progress Note - Text Progress Note Date: 07/19/18 patient requesting visiting nurse care with palliative care. Declined hospice.
--- NOTE | 2018-07-19 15:17 | PN ---
PROGRESS NOTE DATE OF SERVICE: 07/19/2018 This is a 63-year-old gentleman admitted with abdominal pain secondary to metastatic lesions, possible carcinoma, is being closely monitored at this time. The Oncology has recommended possible palliative treatment. The patient will be closely monitored. No chest pain. No palpitations. LFTs also elevated. PHYSICAL EXAM: On exam, alert and oriented x3. Pulse 84, blood pressure 137/67, respirations 16, temperature 98 degrees, pulse ox 98% on room air. EYES: Conjunctivae normal. Oral mucosa moist. NECK: No jugular venous distention. No lymph node enlargement. CARDIOVASCULAR: S1, S2, no stenosis. RESPIRATORY: Breath sounds diminished at the bases, A few scattered rhonchi. No crackles. ABDOMEN: Soft, scaphoid. Multiple diffuse masses present. Legs no edema no cyanosis diffusely weak. LABS: WBC 6.2, hemoglobin is 10.5, sodium 137, potassium 4.5, bilirubin is 9.8 and alk phos is 1429. ASSESSMENT: 1. Abdominal pain with possible secondary to metastatic lesions from squamous cell carcinoma, unknown primary. 2. Increased pulmonary and liver metastasis from most recent CAT scan. 3. Possible obstructive jaundice with worsening bilirubin, AST, ALT, alkaline phosphatase, possibly secondary to metastasis. 4. Mild hypokalemia. 5. Anemia, normocytic anemia of malignancy. 6. History of depression. 7. Hyperlipidemia. 8. Chronic obstructive pulmonary disease. 9. History of degenerative joint disease. 10.History of migraines. 11.History of anxiety. 12.History of nicotine dependence. 13.NO CODE, NO CARDIOPULMONARY RESUSCITATION, NO VENTILATOR. RECOMMENDATION: In this 63-year-old gentleman who presented with multiple complex medical issues. The patient's condition is worsening at this time. Worsening of jaundice and other medical issues. The pain is slightly better. Apparently, the patient refused to hospice which I recommended to Hematology - Oncology palliative as an option. Will continue to monitor. Prognosis guarded. Will closely work with social work and case management team. Further recommendations to follow. The patient might be able to be discharged in the next 24-48 hours. MMODL / IJN: [id number] /
[2018-07-19] MEDS: TEMAZEPAM 15 MG CAP PO PRN (23:17)
[2018-07-20] MEDS: KETOROLAC 30 MG/ML 1 ML VIAL IVP PRN ×3 (01:32→17:07)
[2018-07-20] MEDS: MORPHINE SULFATE IR 15 MG TABLET PO PRN ×4 (06:19→17:07)
[2018-07-20] MEDS: 0.9% NACL WITH KCL 40 MEQ/L 1,000 ML IV SCH ×2 (07:58→17:07)
[2018-07-20] MEDS: SENNOSIDES-DOCUSATE SODIUM 1 EACH TAB PO SCH (08:02)
[2018-07-20] MEDS: PANTOPRAZOLE 40 MG TABLET PO SCH (08:02)
[2018-07-20] MEDS: TOPIRAMATE 25 MG TAB PO SCH (08:02)
[2018-07-20] MEDS: ASPIRIN 81 MG PO SCH (08:02)
[2018-07-20] MEDS: HEPARIN SODIUM,PORCINE 5,000 UNIT/ML 1 ML VIAL SQ SCH ×2 (08:03→08:07)
[2018-07-20] MEDS: IPRATROPIUM 0.5 MG/2.5 ML NEBU INHALATION SCH ×3 (08:46→16:31)
[2018-07-20 09:00] LABS: Basophils % (A) 1 %; Eosinophils # (A) 0.1 k/uL (0-0.7); Eosinophils % (A) 1 %; HCT 34.2 % (39.0-53.0); HGB 11.2 gm/dL (13.0-17.5); Lymphocytes # (A) 1.1 k/uL (1.0-4.8); Lymphocytes % (A) 11 %; MCH 31.3 pg (25.0-35.0); MCHC 32.8 g/dL (31.0-37.0); MCV 95.6 fL (80.0-100.0); Mean Platelet Volume 7.5; Monocytes # (A) 0.5 k/uL (0-1.0); Monocytes % (A) 6 %; Neutrophils # (A) 7.4 k/uL (1.3-7.7); Neutrophils % (A) 80 %; Platelet Count 214 k/uL (150-450); RBC 3.57 m/uL (4.30-5.90); RDW 15.3 % (11.5-15.5); WBC 9.2 k/uL (3.8-10.6)
[2018-07-20 09:43] LABS: ALT 282 U/L (21-72); AST 237 U/L (17-59); Albumin 3.5 g/dL (3.5-5.0); Anion Gap 8 mmol/L; Blood Urea Nitrogen 9 mg/dL (9-20); Calcium 9.1 mg/dL (8.4-10.2); Carbon Dioxide 22 mmol/L (22-30); Chloride 105 mmol/L (98-107); Glucose 77 mg/dL (74-99); Potassium 4.5 mmol/L (3.5-5.1); Sodium 135 mmol/L (137-145); Total Bilirubin 11.8 mg/dL (0.2-1.3); Total Protein 6.7 g/dL (6.3-8.2)
[2018-07-20 10:02] LABS: Alkaline Phosphatase 1510 U/L (38-126)
[2018-07-20 11:36] VITALS: BP 132/75; TEMP 97.9
--- NOTE | 2018-07-20 16:04 | P.DS ---
Providers Date of admission: 07/15/18 22:40 Expected date of discharge: 07/20/18 Attending physician: Aracelis Perez MD Consults: 07/15/18 22:38 Consult Physician Routine Consulting Provider: Rufus Schwartz Consult Reason/Comments: worsening of metastatic disease, severe dehydration Do you want consulting provider notified?: Yes Primary care physician: [facility] Hospital Course: discharge diagnosis - Abdominal pain secondary to metastatic lesion. Carcinoma known primary. - Obstructive jaundice with worsening bilirubin AST ALT and alk phos - Increased pulmonary liver metastasis - anemia probably related to malignancy - History of depression - History of hyperlipidemia - History of COPD - History of migraines - History of anxiety Hospital course - 63-year-old gentleman comes in with complaints of abdominal pain. He has a history of metastatic carcinoma unknown primary. He was seen by hematology oncology. Imaging studies revealed widespread metastatic disease, especially involving the liver, positive for lung nodules. Biopsy was performed at the [facility] in [place], pathology metastatic squamous cell cancer of unknown primary. Patient was treated locally by Dr. Schwartz, received carboplatin and Taxol till July 2017 with good symptom response and a partial radiological response. Patient continued on observation until May 2018. He presented again with increased abdominal pain around the navel and in the right upper quadrant. CT AP 06/01/18 showed progression of disease. Percutaneous retroperitoneal mass was core biopsied on 06/15, pathology revealed metastatic squamous cell with unknown primary. Plan was to start immunotherapy, approval process was delayed by the [facility], currently in the process still pending. Patient pain management has been in adequate, the [facility] prescribes his pain medication and has a cap on doses, Fentanyl 25 g and [place] 10/325 3 Times A Day is maximum. As would be anticipated patient is admitted for pain management, his pain is secondary tocap o progressive malignancy. Patient had a CT on 07/15 that was compared to the 06/01 CT, new pulmonary nodules, increase in size of liver masses with ductal dilation, increase in the size of retroperitoneal adenopathy, this is now surrounding the aorta and IVC as well as encasing the renal vasculature. [facility] so pain can be better monitored and controlled here locally. Patient describes pain as sharp, around the navel and into the right upper quadrant, constant, worse with movement and sitting up, improved when he lays on his right side, denies nausea or vomiting, has no appetite though, he states normal BM in the last 2 days. No fevers, difficulty breathing, chest pain, abdominal bloating, lower extremity swelling, bleeding. GI service also saw the patient and suggested that ERCP and percutaneous drainage was not be a viable option in this situationand the results cannot be guaranteed. There were multiple discussions with the hospice team and also with the hematology oncology team with the patient. Patient finally decided to go home with hospice. On 07/20/2018 On exam, alert and oriented x3. HEENT: Conjunctivae normal. eyes normal. NECK: No JVD. No thyroid enlargement. No LNs CARDIOVASCULAR: S1, S2 muffled. No murmur RESPIRATION: Breath sounds diminished in the bases. No rhonchi or crackles. No bronchial breathing. ABDOMEN: patient was still complaining of pain in his abdomen LEGS: No edema. no swelling NERVOUS SYSTEM: Cranial N 2-12 grossly normal. Moves all 4 limbs. No focal deficits. No sensory deficit. No signs of cerebellar dysfucntion. Skin: no ulcer no rash . patient main concern is pain. He required pain medication. Hospice is on board for him. The hematology oncology and GI services no do much to offer him. They suggested hospice. Patient to follow-up with hospice and with the doctors outpatient as per need Patient Condition at Discharge: Critical Plan - Discharge Summary Discharge Rx Participant: No New Discharge Prescriptions: New Ipratropium Nebulized [Atrovent Nebulized 0.2 MG/ML] 0.5 mg INHALATION RT-QID #60 nebu Morphine Sulfate Ir [MSIR] 15 mg PO Q3HR PRN #60 tablet PRN Reason: Pain ALPRAZolam [Xanax] 0.25 mg PO TID PRN #30 tab PRN Reason: Anxiety Continue Pravastatin Sodium [Pravachol] 10 mg PO HS Aspirin EC [Ecotrin Low Dose] 81 mg PO DAILY Topiramate [Topamax] 50 mg PO BID Tiotropium 18 Mcg/Puff [Spiriva] 1 cap INHALATION RT-DAILY PRN PRN Reason: Shortness Of Breath Sennosides/Docusate Sodium [Senna-S Laxative Tablet] 1 tab PO DAILY PRN PRN Reason: Constipation Lactulose [Cephulac] 20 gm PO BID PRN #10 day PRN Reason: Constipation fentaNYL 50MCG/HR PATCH [Duragesic 50MCG/HR] 1 patch TRANSDERM Q72H #3 patch Omeprazole [PriLOSEC] 40 mg PO AC-BRKFST #14 capsule. Discontinued HYDROcodone/APAP 10-325MG [[place] 10-325] 1 tab PO TID PRN PRN Reason: Pain Discharge Medication List Aspirin EC [Ecotrin Low Dose] 81 mg PO DAILY 04/19/15 [History] Pravastatin Sodium [Pravachol] 10 mg PO HS 04/19/15 [History] Tiotropium 18 Mcg/Puff [Spiriva] 1 cap INHALATION RT-DAILY PRN 02/28/17 [History] Topiramate [Topamax] 50 mg PO BID 02/28/17 [History] Sennosides/Docusate Sodium [Senna-S Laxative Tablet] 1 tab PO DAILY PRN 07/06/18 [History] Lactulose [Cephulac] 20 gm PO BID PRN #10 day 07/08/18 [Rx] Omeprazole [PriLOSEC] 40 mg PO AC-BRKFST #14 capsule. 07/08/18 [Rx] fentaNYL 50MCG/HR PATCH [Duragesic 50MCG/HR] 1 patch TRANSDERM Q72H #3 patch 07/08/18 [Rx] ALPRAZolam [Xanax] 0.25 mg PO TID PRN #30 tab 07/20/18 [Rx] Ipratropium Nebulized [Atrovent Nebulized 0.2 MG/ML] 0.5 mg INHALATION RT-QID #60 nebu 07/20/18 [Rx] Morphine Sulfate Ir [MSIR] 15 mg PO Q3HR PRN #60 tablet 07/20/18 [Rx] Follow up Appointment(s)/Referral(s): [facility], [NON-STAFF] - 1 Week [facility],Clinic [Primary Care Provider] - 1-2 days Discharge Disposition: HOME WITH HOSPICE
[2018-07-20 17:12] VITALS: PULSE 91
== END 2018-07-20 18:58 | disposition hospice, home (50) | DRG 947 ==
LOC: EC 20:41 → 3NMEDONC 22:40
PROVIDERS: ADMIT Internal Medicine; ATTEND Internal Medicine
DX: G89.3 Neoplasm related pain (acute) (chronic) (principal); K83.1 Obstruction of bile duct; E43 Unspecified severe protein-calorie malnutrition; C78.7 Secondary malignant neoplasm of liver and intrahepatic bile duct; Z68.1 Body mass index [BMI] 19.9 or less, adult; F17.200 Nicotine dependence, unspecified, uncomplicated; R64 Cachexia; E86.0 Dehydration; E87.6 Hypokalemia; D63.0 Anemia in neoplastic disease; R16.0 Hepatomegaly, not elsewhere classified; J44.9 Chronic obstructive pulmonary disease, unspecified; I11.9 Hypertensive heart disease without heart failure; E78.5 Hyperlipidemia, unspecified; G43.909 Migraine, unspecified, not intractable, without status migrainosus; Z51.5 Encounter for palliative care; M19.90 Unspecified osteoarthritis, unspecified site; F41.9 Anxiety disorder, unspecified; F32.9 Major depressive disorder, single episode, unspecified; F17.210 Nicotine dependence, cigarettes, uncomplicated; Z91.81 History of falling; Z79.82 Long term (current) use of aspirin; Z79.899 Other long term (current) drug therapy; Z79.51 Long term (current) use of inhaled steroids; Z86.010 Personal history of colon polyps; Z85.9 Personal history of malignant neoplasm, unspecified; Z82.5 Family history of asthma and other chronic lower respiratory diseases; Z85.05 Personal history of malignant neoplasm of liver
CPT/HCPCS: 36415; 74177; 76705; 80053; 81003; 83690; 83735; 84100; 84484; 85025; 85610; 93005; 94640; 96361; 96374; 96375; 99285